=== PATIENT | female | born 1925 | race Caucasian/White ===

== ENCOUNTER 2016-07-02 16:55 | Inpatient (IN) | payer OTHER ==
[2016-07-02] MEDS ORDERED: morphine CARPU-JECT 2 MG/1 ML DISP.SYRIN IVPUSH ONE (17:47)
--- NOTE | 2016-07-02 17:58 | PDOC ---
History of Present Illness <Ozzy Koroma - Last Filed: 07/02/16 18:54> - General History Source: Patient Exam Limitations: No Limitations - History of Present Illness Initial Comments: 07/02/16 17:55 89y F hx of htn, presents with complaint of R knee pain. Pt was in her usual state of health, and was wearing stockings and slipped down 5 steps, falling wiht her arm in an externally rotated direction. Pt denies any head injury, neck pain, back pain, loc, hx of cp/sp/aplipations/abd pain. pt denies any numbness/tinglingweakness. pt endorsing pain to her R hip and R knee. pt not on any a/c <Tim Acevedo - Last Filed: 07/05/16 07:34> - General Chief Complaint: Pain, Acute Stated Complaint: FALL Time Seen by Provider: 07/02/16 17:46 Past History <Ozzy Koroma - Last Filed: 07/02/16 18:54> - Past Medical History GI Disorders: Yes (DIVERTICULOSIS; GERD) HTN: Yes - Surgical History Cholecystectomy: Yes Orthopedic Surgery: Yes (JOSE M HIP REPLACEMENT; RIGHT SHLD REPLACEMENT) - Psycho/Social/Smoking Cessation Hx Anxiety: No Suicidal Ideation: No Smoking Status: Yes Smoking History: Former smoker Have you smoked in the past 12 months: Yes Number of Cigarettes Smoked Daily: 3 Information on smoking cessation initiated: No 'Breaking Loose' booklet given: 04/04/13 Hx Alcohol Use: No Drug/Substance Use Hx: No <Tim Acevedo - Last Filed: 07/05/16 07:34> - Past Medical History Allergies/Adverse Reactions: Allergies Allergy/AdvReac Type Severity Reaction Status Date / Time Penicillins Allergy Rash Verified 07/02/16 17:08 Home Medications: Ambulatory Orders Hydralazine HCl 50 mg PO BID 05/25/13 Metoprolol Succinate [Toprol Xl -] 25 mg PO DAILY 07/02/16 Furosemide [Lasix -] 20 mg PO DAILY 07/04/16 Review of Systems - Review of Systems Able to Perform ROS?: Yes Comments:: 07/02/16 17:58 Constitutional - no reported Fever, Chills, HEENT: no reported vision changes, sore throat Respiratory: no reported cough, sob, hemoptysis Cardiac: no reported chest pain, palpitations, light headedness, leg swelling Abd/GI: no reported abd pain, nausea, vomiting, blood per rectum, melena, diarrhea : no reported dysuria, frequency, discharge Musculskelatal - +hip pain, knee pain no reported back pain, joint swelling skin - no reported bruising, erythema, rash neurological: no reported headache, numbness, focal weakness, tingling, ataxia, hematologic: no reported anemia, easy bruising, easy bleeding <Rojas Acevedoan - Last Filed: 07/05/16 07:34> *Physical Exam - Vital Signs Last Vital Signs Temp Pulse Resp BP Pulse Ox 97.8 F 63 20 145/80 99 07/02/16 17:09 07/02/16 17:09 07/02/16 17:09 07/02/16 17:09 07/02/16 17:09 <Ozzy Koroma - Last Filed: 07/02/16 18:54> - Vital Signs Last Vital Signs Temp Pulse Resp BP Pulse Ox 97.8 F 63 20 145/80 99 07/02/16 17:09 07/02/16 17:09 07/02/16 17:09 07/02/16 17:09 07/02/16 17:09 - Physical Exam Comments: 07/02/16 17:59 GENERAL: The patient is awake, alert, and fully oriented, Nontoxic - in no acute distress. HEAD: Normocephalic, atraumatic. EYES: extraocular movements intact, sclera anicteric, conjunctiva clear. ENT: Normal voice, Moist mucous membranes. NECK: Normal range of motion, supple LUNGS: Breath sounds equal, clear to auscultation bilaterally. No wheezes, no rhonchi, no rales. HEART: Regular rate and rhythm, normal S1 and S2 without murmur, rub or gallop. ABDOMEN: Soft, nontender, normoactive bowel sounds. No guarding, no rebound. No CVA tenderness EXTREMITIES: normal ROM of LLE, RLE exquisitely tender R knee with swelling, no tenderness to tib/fib/knee/ankle/foot. pulses symmetric b/l of DP, sensation intact distally, cap refill <2 sec symmetrically. NEUROLOGICAL: No facial assymetry, Normal speech, PSYCH: Normal mood, normal affect. SKIN: Warm, Dry, normal turgor, <Tim Acevedo - Last Filed: 07/05/16 07:34> Heart Score/ECG Review - ECG Impressions Comment:: 07/02/16 18:58 Twelve-lead EKG was performed and reviewed by me. There is normal sinus rhythm with a normal rate. Rate of 60 Left bundle-branch block Appropriate discordance <Tim Acevedo - Last Filed: 07/05/16 07:34> ED Treatment Course - LABORATORY CBC & Chemistry Diagram: 07/02/16 18:00 07/02/16 18:00 - ADDITIONAL ORDERS Additional order review: Laboratory Results 07/02/16 18:00 INR 0.99 07/02/16 18:00 RBC 4.83 MCV 70.4 L MCHC 31.1 L RDW 16.3 H D MPV 9.4 Neutrophils % 83.9 H Lymphocytes % 7.8 L D Monocytes % 6.0 Eosinophils % 1.7 Basophils % 0.6 - Medications Given in the ED: ED Medications Discontinued Medications Generic Name Dose Route Start Last Admin Trade Name Erasmoq PRN Reason Stop Dose Admin Morphine Sulfate 2 mg 07/02/16 17:47 07/02/16 18:00 Morphine Injection - IVPUSH 07/02/16 17:48 2 mg ONCE ONE Administration Ondansetron HCl 4 mg 07/02/16 18:05 07/02/16 18:00 Zofran Injection IVPB 07/02/16 18:06 4 mg ONCE ONE Administration <Ozzy Koroma - Last Filed: 07/02/16 18:54> - LABORATORY CBC & Chemistry Diagram: 07/04/16 05:50 07/04/16 05:50 - RADIOLOGY Radiology Studies Ordered: Category Date Time Status HIP & PELVIS-RIGHT [RAD] Stat Radiology 07/02/16 17:47 Ordered <Tim Acevedo - Last Filed: 07/05/16 07:34> Medical Decision Making - Medical Decision Making 07/02/16 18:[address] Casie lazo. Dr. Gonzalez is covering. Awaiting call back. 07/02/16 18:55 Dr. Gonzalez called into ED. Case discussed. <Ozzy Koroma - Last Filed: 07/02/16 18:54> - Medical Decision Making 07/02/16 18:00 distal femoral fracture n/v intact awaiting pelvic/hip xray will give morphine to pain paged dr. smith 07/02/16 18:43 discussed w/ jennifer requested CT of LE and putting on knee immobilizer 07/02/16 19:30 pts pain managed with small boluses of morphine, n/v intact on repeat examination case audrey gonzalez requests hospitalist admission will page dr. lakisha arteaga for med surg Case discussed in detail with admitting physician including history, physical exam and ancillary studies. Admitting physician has assumed care for the patient, will follow all pending diagnostics and will complete the evaluation and treatment. <Tim Acevedo - Last Filed: 07/05/16 07:34> *DC/Admit/Observation/Transfer <Ozzy Koroma - Last Filed: 07/02/16 18:54> - Discharge Dispostion Admit: Yes <Tim Acevedo - Last Filed: 07/05/16 07:34> Diagnosis at time of Disposition: Femur fracture, right Qualifiers: Encounter type: initial encounter Femur location: unspecified portion of femur Fracture type: closed Fracture morphology: other fracture Qualified Code(s): S72.8X1A - Other fracture of right femur, initial encounter for closed fracture
[2016-07-02] MEDS ORDERED: ONDANSETRON 4 MG/2 ML VIAL ONE ×2 (18:04→19:55)
[2016-07-02] MEDS ORDERED: morphine CARPU-JECT 2 MG/1 ML DISP.SYRIN ONE ×2 (18:04→22:20)
[2016-07-02] MEDS ORDERED: ONDANSETRON 4 MG/2 ML VIAL IVPB ONE ×2 (18:05→19:51)
[2016-07-02 18:18] LABS: BASOPHIL 0.6 % (0-2.0); EOSINOPHIL 1.7 % (0-4.5); MCH 21.9 pg (25.7-33.7); MCHC 31.1 g/dl (32.0-36.0); MEAN CELL VOLUME 70.4 fl (80-96); MEAN PLT VOLUME 9.4 fl (7.5-11.1); NEUTROPHILS 83.9 % (42.8-82.8); PLATELET COUNT 245 K/MM3 (134-434); RDW 16.3 % (11.6-15.6); WHITE BLOOD COUNT 14.5 K/mm3 (4.0-10.0)
[2016-07-02 18:33] LABS: INR 0.99 (0.82-1.09); PROTHROMBIN TIME (PATIENT) 10.9 SEC (9.98-11.88)
[2016-07-02 18:44] LABS: ALBUMIN 3.8 g/dl (3.4-5.0); BILIRUBIN,TOTAL 0.6 mg/dL (0.2-1.0); CALCIUM 8.5 mg/dL (8.5-10.1); COCKROFT - GAULT 21.1225; CREATININE 1.7 mg/dL (0.55-1.02); TOT PROT 6.6 g/dl (6.4-8.2)
[2016-07-02] MEDS ORDERED: SODIUM CHLORIDE 1,000 ML IV ONE (19:29)
[2016-07-02] MEDS ORDERED: morphine CARPU-JECT 4 MG/1 ML DISP.SYRIN IVPUSH ONE (19:51)
[2016-07-02] MEDS ORDERED: morphine CARPU-JECT 4 MG/1 ML DISP.SYRIN ONE (19:55)
--- NOTE | 2016-07-02 20:37 | PN ---
<Caitie Bahena - Last Filed: 07/21/16 20:05> Teaching Attending Note ATTENDING PHYSICIAN STATEMENT I saw and evaluated the patient. I reviewed the resident's note and discussed the case with the resident. I agree with the resident's findings and plan as documented. SUBJECTIVE: 89 yo F with a PMHx of HTN who presents with R knee pain s/p mechanical fall at home today. The patient states she fell down 5 stairs earlier this evening. Patient denies previous dizziness or lightheadedness before the fall. Patient states she injured her arm after falling however denies any head trauma, headache, neck pain, LOC, nausea or vomiting. Patient denies any numbness/ tingling or weakness in her LE. Currently in the ED, patient feels tired and requests a trevizo catheter. PMHx: Diverticulosis, GERD Social Hx: None PSHx: Cholecystectomy, Bilateral Hip replacement, R shoulder replacement. OBJECTIVE: Last Vital Signs Temp Pulse Resp BP Pulse Ox 97.8 F 63 20 145/80 99 07/02/16 17:09 07/02/16 17:09 07/02/16 17:09 07/02/16 17:09 07/02/16 17:09 GENERAL: Awake, alert, and fully oriented, in no acute distress. + Diminished R hearing. HEENT: Atraumatic. PERRLA, EOMI. Moist mucosa. No JVD LUNGS: No distress, speaks full sentences, clear to auscultation bilaterally HEART: Regular rate and rhythm, normal S1 and S2. + 3/6 Systolic murmur. no murmurs, rubs or gallops, peripheral pulses normal and equal bilaterally. ABDOMEN: Soft, nontender, normoactive bowel sounds. No guarding, no rebound. No masses EXTREMITIES: +RLE with external deviation, swollen and severe pain on movement. no edema. No clubbing or Cyanosis. NEUROLOGICAL: Cranial nerves II through XII grossly intact. Normal speech, normal gait, no focal sensorimotor deficits SKIN: Warm, Dry, normal turgor, no rashes or lesions noted. CBCD WBC 14.5 K/mm3 (4.0-10.0) H D 07/02/16 18:00 RBC 4.83 M/mm3 (3.60-5.2) 07/02/16 18:00 Hgb 10.6 GM/dL (10.7-15.3) L 07/02/16 18:00 Hct 34.0 % (32.4-45.2) 07/02/16 18:00 MCV 70.4 fl (80-96) L 07/02/16 18:00 MCHC 31.1 g/dl (32.0-36.0) L 07/02/16 18:00 RDW 16.3 % (11.6-15.6) H D 07/02/16 18:00 Plt Count 245 K/MM3 (134-434) 07/02/16 18:00 MPV 9.4 fl (7.5-11.1) 07/02/16 18:00 CMP Sodium 142 mmol/L (136-145) 07/02/16 18:00 Potassium 3.9 mmol/L (3.5-5.1) 07/02/16 18:00 Chloride 105 mmol/L (98-107) 07/02/16 18:00 Carbon Dioxide 25 mmol/L (21-32) 07/02/16 18:00 Anion Gap 12 (8-16) 07/02/16 18:00 BUN 43 mg/dL (7-18) H D 07/02/16 18:00 Creatinine 1.7 mg/dL (0.55-1.02) H 07/02/16 18:00 Creat Clearance w eGFR 28.36 (>60) 07/02/16 18:00 Calcium 8.5 mg/dL (8.5-10.1) 07/02/16 18:00 Total Bilirubin 0.6 mg/dL (0.2-1.0) 07/02/16 18:00 AST 22 U/L (15-37) D 07/02/16 18:00 ALT 20 U/L (12-78) D 07/02/16 18:00 Alkaline Phosphatase 88 U/L (45-117) 07/02/16 18:00 Total Protein 6.6 g/dl (6.4-8.2) 07/02/16 18:00 Albumin 3.8 g/dl (3.4-5.0) 07/02/16 18:00 Imaging: CXR Impression: Borderline cardiomegaly and mild bilateral increased interstitial lung markings without evidence of focal infiltrates Lower Extremity CT Report pending Hip/Pelvis Xray Impression: Status post right hip replacement in satisfactory alignment Knee Xray Impression: Distal femoral fracture along superior margin of the condyles with displacement. ASSESSMENT AND PLAN: Distal femoral fracture s/p Fall Bed rest Morphine 2 mg IVPB Q6 PRN Trevizo catheter due to immobilization Heparin 5000 SQ Q8 Ortho consult for surgery PT consult s/p surgery Cefazolin 1g pre-surgery Fall risk precautions Echocardiogram and Cardiology clearance by surgery Patients daughter in [place] is health care proxy. Advanced directives were discussed. Patient and family confirming their wishes. Documentation prepared by Caitie Bahena, acting as emergency medical services coordinator for Mary Ann Blum MD. <Mary Ann Blum - Last Filed: 07/29/16 19:52> Teaching Attending Note Name of Resident: Michele Martinez
--- NOTE | 2016-07-02 21:33 | HP ---
CHIEF COMPLAINT: PCP: Dr Urena Cardiology: Dr Goode HISTORY OF PRESENT ILLNESS: 89 year old female with pmh CKD (cr 1.5-1.9), HTN, CHF presented to the ED s/p mechanical fall. The patient was wearing silk stockings and slipped down 5 wooden steps. Her right knee bent and hit the floor. She is now complaining of moderate pain, sharp, that is alleviated by pain medications and worsened by movement of right knee, the pain radiates up the thigh . She denies hitting her head, neck, back or upper extremities. She only has pain in right knee. The patient denies any chest pain, palpitation, n/v, shortness of breath, dizziness , lightheadedness. No recent cold/flu like symptoms, diarrhea, fever, dysuria, hematuria, chills in the last few days. ER course was notable for: (1) Xray knee, Xray hip (2)CT right lower ext (3) Labs Recent Travel: None PAST MEDICAL HISTORY: CKD (cr 1.5-1.9), HTN, CHF PAST SURGICAL HISTORY: Hystecrectomy Cholecystectomy Right shoulder replacement Right rotator cuff B/l Hip replacement Social History: Smoking: former smoker, quit 3 years ago, 1/5 pack per day since 18 years old Alcohol:denies Drugs: denies Family History: father with triple bypass, aortic aneurism at 82, at 93. mother at 102 of unknown medical causes Allergies Penicillins Allergy (Verified 07/02/16 17:08) Unknown allergic reaction HOME MEDICATIONS: Home Medications Medication Instructions Recorded Hydralazine HCl 25 mg PO BID 05/25/13 Metoprolol Succinate [Toprol Xl -] 50 mg PO DAILY 07/02/16 REVIEW OF SYSTEMS CONSTITUTIONAL: Absent: fever, chills, diaphoresis, generalized weakness, malaise, loss of appetite, weight change HEENT: Absent: rhinorrhea, nasal congestion, throat pain, throat swelling, difficulty swallowing, mouth swelling, ear pain, eye pain, visual changes CARDIOVASCULAR: Absent: chest pain, syncope, palpitations, irregular heart rate, lightheadedness , peripheral edema RESPIRATORY: Absent: cough, shortness of breath, dyspnea with exertion, orthopnea, wheezing, stridor, hemoptysis GASTROINTESTINAL: Absent: abdominal pain, abdominal distension, nausea, vomiting, diarrhea, constipation, melena, hematochezia GENITOURINARY: Absent: dysuria, frequency, urgency, hesitancy, hematuria, flank pain, genital pain MUSCULOSKELETAL: right knee pain and swelling Absent: myalgia, arthralgia, , back pain, neck pain SKIN: Absent: rash, itching, pallor HEMATOLOGIC/IMMUNOLOGIC: Absent: easy bleeding, easy bruising, lymphadenopathy, frequent infections ENDOCRINE: Absent: unexplained weight gain, unexplained weight loss, heat intolerance, cold intolerance NEUROLOGIC: Absent: headache, focal weakness or paresthesias, dizziness, unsteady gait, seizure, mental status changes, bladder or bowel incontinence PSYCHIATRIC: Absent: anxiety, depression, suicidal or homicidal ideation, hallucinations. PHYSICAL EXAMINATION Vital Signs - 24 hr 07/02/16 17:09 Temperature 97.8 F Pulse Rate 63 Respiratory 20 Rate Blood Pressure 145/80 O2 Sat by Pulse 99 Oximetry (%) GENERAL: Awake, alert, and fully oriented, in no acute distress. HEAD: Normal with no signs of trauma. EYES: Pupils equal, round and reactive to light, extraocular movements intact, sclera anicteric, conjunctiva clear. No lid lag. EARS, NOSE, THROAT: Ears normal, nares patent, oropharynx clear without exudates. Moist mucous membranes. NECK: Normal range of motion, supple without lymphadenopathy, JVD, or masses. LUNGS: Breath sounds equal, clear to auscultation bilaterally. No wheezes, and no crackles. No accessory muscle use. HEART: Regular rate and rhythm, normal S1 and S2 with pansystolic murmur 3/6 and early diastolic murmur , rub or gallop. ABDOMEN: Soft, nontender, not distended, normoactive bowel sounds, no guarding, no rebound, no masses. No hepatomegaly or splenomegaly. MUSCULOSKELETAL: Normal range of motion at all joints. No bony deformities or tenderness. No CVA tenderness. UPPER EXTREMITIES: 2+ pulses, warm, well-perfused. No cyanosis. No clubbing. No peripheral edema. LOWER EXTREMITIES: 2+ pulses, warm, well-perfused. No calf tenderness. No peripheral edema. Right knee swelling and tenderness, no redness, decreased range of motion in right knee, likely due to pain NEUROLOGICAL: Cranial nerves II-XII intact. Normal speech. gait not observed. No numbness, tingling, loss of sensation to light touch in b/l lower ext, normal strength in ankle joints and hips joints b/l , unable to assess strength in right knee due to pain and limited range of motion. normal plantar reflex b/ l. PSYCHIATRIC: Cooperative. Good eye contact. Appropriate mood and affect. SKIN: Warm, dry, normal turgor, no rashes or lesions noted, normal capillary refill. Laboratory Results - last 24 hr 07/02/16 07/02/16 07/02/16 18:00 18:00 18:00 WBC 14.5 H D RBC 4.83 Hgb 10.6 L Hct 34.0 MCV 70.4 L MCHC 31.1 L RDW 16.3 H D Plt Count 245 MPV 9.4 Neutrophils % 83.9 H Lymphocytes % 7.8 L D Monocytes % 6.0 Eosinophils % 1.7 Basophils % 0.6 INR 0.99 Sodium 142 Potassium 3.9 Chloride 105 Carbon Dioxide 25 Anion Gap 12 BUN 43 H D Creatinine 1.7 H Creat Clearance w eGFR 28.36 Random Glucose 132 H D Calcium 8.5 Total Bilirubin 0.6 AST 22 D ALT 20 D Alkaline Phosphatase 88 Total Protein 6.6 Albumin 3.8 Blood Type Antibody Screen 07/02/16 18:00 WBC RBC Hgb Hct MCV MCHC RDW Plt Count MPV Neutrophils % Lymphocytes % Monocytes % Eosinophils % Basophils % INR Sodium Potassium Chloride Carbon Dioxide Anion Gap BUN Creatinine Creat Clearance w eGFR Random Glucose Calcium Total Bilirubin AST ALT Alkaline Phosphatase Total Protein Albumin Blood Type O POSITIVE Antibody Screen Negative CXR 07/02/16: Borderline cardiomegaly and mild bilateral increased interstitial lung markings without evidence of focal infiltrates X-ray of the pelvis and right hip 07/02/16: Status post right hip replacement in satisfactory alignment X-ray of the right knee 07/02/16: Distal femoral fracture along superior margin of the condyles with displacement. ASSESSMENT/PLAN: 89 year old female with pmh CKD (cr 1.5-1.9), HTN, CHF presented to the ED s/p mechanical fall was found to have Right Distal femoral fracture Right Distal femoral fracture s/p fall fall was mechanical Xray showed Distal femoral fracture along superior margin of the condyles with displacement NO bruise appreciated NO pain except for right knee Fall precaution initiated Bedrest Elizabeth catheter for immobilization Morphine 2mg IV q3h for pain Heparin 5000U sq q8h for DVT prophylaxis Dr smith consulted, possible surgery tomorrow type and screen done CBC, bmp and coag in am May need cardiac clearance due to H/o CHF, HTN, CKD and advanced age Consider echocardiography Consider nuclear stress test CKD baseline 1.5-1.9 Cr 1.7 Avoid nephrotoxins BMP in am HTN Resume Toprol XL 50mg Po daily Resume Hydralzine 25mg Po bid CHF On Diuretic qod, Possibly lasix 20mg, unsure of name and dosage Will clarify Toprol XL FEN Fluid: NS at 75ml/h starting after midnight Electrolytes: chemistry in am Nutrition: Low Na diet, NPO after midnight DVT prophylaxis: heparin SQ 5000U q8h Disposition: admit to [facility] Visit type - Emergency Visit Emergency Visit: Yes ED Registration Date: 07/02/16 Care time: The patient presented to the Emergency Department on the above date and was hospitalized for further evaluation of their emergent condition. - New Patient This patient is new to me today: Yes Date on this admission: 07/02/16 - Critical Care Critical Care patient: No
[2016-07-02 22:11] LABS: ANISOCYTOSIS 2+; HYPOCHROMIA 2+; MICROCYTOSIS 1+; PLATELET COMMENT2 NO CLOTTING DETECTED; PLATELET COMMENT3 FEW LARGE PLTS; PLATELET ESTIMATE ADEQUATE (NORMAL); POIKILOCYTOSIS 1+; POLYCHROMASIA 1+
[2016-07-02] MEDS ORDERED: hydrALAZINE HCL 25 MG TABLET (FP) ONE (22:20)
[2016-07-02] MEDS: morphine CARPU-JECT 2 MG/1 ML DISP.SYRIN IVPUSH PRN (22:27)
[2016-07-02] MEDS: hydrALAZINE HCL 25 MG TABLET (FP) PO SCH (22:27)
[2016-07-02] MEDS: SODIUM CHLORIDE 1,000 ML IV SCH (23:52)
[2016-07-03 00:28] VITALS: BMI 22.1
[2016-07-03] MEDS: morphine CARPU-JECT 2 MG/1 ML DISP.SYRIN IVPUSH PRN ×5 (03:11→17:20)
[2016-07-03 05:21] LABS: URINE APPEARANCE CLEAR; URINE BILIRUBIN NEGATIVE (NEGATIVE); URINE COLOR STRAW; URINE GLUCOSE (UA) NEGATIVE (NEGATIVE); URINE KETONE NEGATIVE (NEGATIVE); URINE LEUK ESTERASE NEGATIVE (NEGATIVE); URINE NITRITE NEGATIVE (NEGATIVE); URINE PROTEIN NEGATIVE (NEGATIVE); URINE UROBILINOGEN NEGATIVE E.U./dl (0.2-1.0)
[2016-07-03 05:24] LABS: URINE BLOOD 1+ (NEGATIVE)
[2016-07-03 05:25] LABS: URINE BACTERIA RARE /hpf (NONE SEEN); URINE HYALINE CAST 3 /lpf; URINE MUCUS RARE; URINE RBC 11 /hpf (0-3); URINE WBC <1 /hpf (3-5)
[2016-07-03 07:08] LABS: MCH 22.6 pg (25.7-33.7); MCHC 31.7 g/dl (32.0-36.0); MEAN CELL VOLUME 71.4 fl (80-96); MEAN PLT VOLUME 8.3 fl (7.5-11.1); PLATELET COUNT 166 K/MM3 (134-434); RDW 16.3 % (11.6-15.6); WHITE BLOOD COUNT 10.6 K/mm3 (4.0-10.0)
[2016-07-03 07:21] LABS: INR 1.1 (0.82-1.09); PROTHROMBIN TIME (PATIENT) 12.1 SEC (9.98-11.88)
[2016-07-03 07:23] LABS: ACTIVATED PTT 30.9 SECONDS (26.9-34.4)
[2016-07-03 07:34] LABS: CALCIUM 7.6 mg/dL (8.5-10.1); COCKROFT - GAULT 21.811; CREATININE 1.8 mg/dL (0.55-1.02)
[2016-07-03] MEDS: hydrALAZINE HCL 25 MG TABLET (FP) PO SCH ×2 (10:20→22:06)
[2016-07-03] MEDS: METOPROLOL SUCCINATE 50 MG TAB.SR.24H (FP) PO SCH (10:20)
[2016-07-03] MEDS: SODIUM CHLORIDE 1,000 ML IV SCH ×2 (10:23→17:22)
--- NOTE | 2016-07-03 11:52 | CON.ORTH ---
Consult Reason for Consultation:: right femur fx - Alcohol/Substance Use Hx Alcohol Use: No - Smoking History Smoking history: Former smoker Have you smoked in the past 12 months: No Aproximately how many cigarettes per day: 3 Home Medications - Allergies Allergies/Adverse Reactions: Allergies Allergy/AdvReac Type Severity Reaction Status Date / Time Penicillins Allergy Rash Verified 07/02/16 17:08 - Home Medications Home Medications: Ambulatory Orders Hydralazine HCl 25 mg PO BID 05/25/13 Metoprolol Succinate [Toprol Xl -] 50 mg PO DAILY 07/02/16 Physical Exam for Ortho Vital Signs: Vital Signs Temperature 98.7 F 07/03/16 10:00 Pulse Rate 85 07/03/16 10:00 Respiratory Rate 20 07/03/16 10:00 Blood Pressure 134/60 07/03/16 10:00 O2 Sat by Pulse Oximetry (%) 94 L 07/02/16 23:23 Labs: CBC, BMP 07/03/16 06:00 07/03/16 06:00 INR, PTT INR 1.10 (0.82-1.09) 07/03/16 06:00 - Lower Extremity Knee: Yes: Right, Assymetrical, Limited ROM, Pain, Swelling, Tenderness, Other ( nvi) Imaging - Results X-ray: Report Reviewed, Image Reviewed Cat Scan: Report Reviewed, Image Reviewed Assessment/Plan 89 year old female with pmh CKD (cr 1.5-1.9), HTN, CHF presented to the ED s/p mechanical fall. The patient was wearing silk stockings and slipped down 5 wooden steps. Her right knee bent and hit the floor. She is now complaining of moderate pain, sharp, that is alleviated by pain medications and worsened by movement of right knee, the pain radiates up the thigh . She denies hitting her head, neck, back or upper extremities. She only has pain in right knee. The patient denies any chest pain, palpitation, n/v, shortness of breath, dizziness , lightheadedness. a/p- right displaced distal femur, lateral tibial plateau fx Risks and benefits d/w pt in detail regarding surgical treatment OR tentatively Tuesday for right distal femur replacement vs ORIF Surgical clearance NPO after midnight Tuesday d/w Dr. Chacon
--- NOTE | 2016-07-03 16:58 | CON.NEP ---
Consult Consult Specialty:: Nephrology Referred by:: Dr Bray Reason for Consultation:: CKD - History of Present Illness Chief Complaint: Right leg pain following a fall History of Present Illness: 89 year old female with pmh CKD (cr 1.5-1.9) followed by Dr Efren Cano, HTN, CHF and cardiac murmur followed by Dr Cuello that presented to the ED s/p mechanical fall. The patient was wearing silk stockings and slipped down 5 wooden steps. Pt has a right distal femur fracture and is for surgery on 07/05 or 07/06 Since admission the serum Cr is at baseline based on the available previous labs. Pt usually on Lasix every other day at home No recent NSAID use Trevizo has be inserted and had to be reinserted on several occasions since not in place resulting in leakage around the trevizo UA showed some microscopic blood but no protein. Pt regularly followed by her usual computer science intern - History Source History Provided By: Patient, Medical Record - Past Medical History Cardio/Vascular: Yes: CHF, HTN, Other (Heart murmur ) - Alcohol/Substance Use Hx Alcohol Use: No - Smoking History Smoking history: Former smoker Have you smoked in the past 12 months: No Aproximately how many cigarettes per day: 3 Home Medications - Allergies Allergies/Adverse Reactions: Allergies Allergy/AdvReac Type Severity Reaction Status Date / Time Penicillins Allergy Rash Verified 07/02/16 17:08 - Home Medications Home Medications: Ambulatory Orders Hydralazine HCl 25 mg PO BID 05/25/13 Metoprolol Succinate [Toprol Xl -] 50 mg PO DAILY 07/02/16 Nephrology Consult - Height Height: 5 ft 7 in - Weight Weight: 141 lb - BMI Body Mass Index (BMI): 22.1 - Lab Results CBC,BMP: CBC, BMP 07/03/16 06:00 07/03/16 06:00 Laboratory Tests 04/20/10 04/23/10 04/24/10 15:10 06:00 07:30 Creatinine 1.6 H D 1.8 H 1.9 H 04/04/13 04/06/13 07/02/16 10:55 06:30 18:00 Creatinine 1.6 H 1.6 H 1.7 H U/A: Laboratory Tests 07/03/16 03:00 Urine Color Straw Urine pH 5.0 Ur Specific [place] < 1.005 L Urine Protein Negative Urine Glucose (UA) Negative Urine Ketones Negative Urine Blood 1+ H Urine Nitrite Negative Urine Bilirubin Negative Urine Urobilinogen Negative Ur Leukocyte Esterase Negative Urine RBC 11 Urine WBC <1 Anion Gap: Anion Gap Anion Gap 9 (8-16) 07/03/16 06:00 - Imaging Chest X-ray: Report Reviewed Cat Scan: Report Reviewed - Physical Examination Vital Signs: Vital Signs Temperature 98.7 F 07/03/16 14:10 Pulse Rate 83 07/03/16 14:10 Respiratory Rate 20 07/03/16 10:00 Blood Pressure 144/75 07/03/16 14:10 O2 Sat by Pulse Oximetry (%) 94 L 07/02/16 23:23 Constitutional: Yes: No Distress Cardiovascular: Yes: JVD, Murmur, S1, S2. No: S3 Respiratory: Yes: CTA Bilaterally Gastrointestinal: Yes: Soft. No: Tenderness Renal/: No: Bladder Distention Extremities: Yes: Other (Right knee swelling) Edema: No Assessment/Plan Impression CKD which appears to be stable in pt with mildly atrophic kidneys on sonography of 07/06 HTN H/O CHF usually on lasix q 48 hours Right Femur fx following a mechanical fall Harsh systolic murmur likley from Worsening microcytic anemia Microscopic Hematuria in pt with traumatic trevizo insertion Plan Cautious IVF- will reduce the rate to 40 cc/hr Continue to hold the lasix for now EKG Consider PRBCs preoperatvely if hgb confirmed low Cardiology to see pt Once trevizo is out will need another UA and if microscopic hematuria persists she will need a W/U Thank You Will Follow Discussed with the Hospitalist Dr Simpson
--- NOTE | 2016-07-03 17:30 | PN ---
Physical Exam: SUBJECTIVE: Patient seen and examined Patient is comfortable with no acute distress. Feeling better. OBJECTIVE: Vital Signs Temperature 98.7 F 07/03/16 14:10 Pulse Rate 83 07/03/16 14:10 Respiratory Rate 20 07/03/16 10:00 Blood Pressure 144/75 07/03/16 14:10 O2 Sat by Pulse Oximetry (%) 94 L 07/02/16 23:23 GENERAL: The patient is awake, alert, and fully oriented, in no acute distress. HEAD: Normal with no signs of trauma. EYES: PERRL, extraocular movements intact, sclera anicteric, conjunctiva clear. No ptosis. ENT: Ears normal, nares patent, oropharynx clear without exudates, moist mucous membranes. NECK: Trachea midline, full range of motion, supple. LUNGS: Breath sounds equal, clear to auscultation bilaterally, no wheezes, no crackles, no accessory muscle use. HEART: Regular rate and rhythm, S1, S2 without murmur, rub or gallop. ABDOMEN: Soft, nontender, nondistended, normoactive bowel sounds, no guarding, no rebound, no masses appreciated. EXTREMITIES: 2+ pulses, warm, well-perfused, no edema. Right femoral fx NEUROLOGICAL: Cranial nerves II through XII grossly intact. Normal speech, gait not observed. PSYCH: Normal mood, normal affect. SKIN: Warm, dry, normal turgor, no rashes or lesions noted CBCD WBC 10.6 K/mm3 (4.0-10.0) H 07/03/16 06:00 RBC 3.69 M/mm3 (3.60-5.2) D 07/03/16 06:00 Hgb 8.3 GM/dL (10.7-15.3) L D 07/03/16 06:00 Hct 26.3 % (32.4-45.2) L D 07/03/16 06:00 MCV 71.4 fl (80-96) L 07/03/16 06:00 MCHC 31.7 g/dl (32.0-36.0) L 07/03/16 06:00 RDW 16.3 % (11.6-15.6) H 07/03/16 06:00 Plt Count 166 K/MM3 (134-434) D 07/03/16 06:00 MPV 8.3 fl (7.5-11.1) D 07/03/16 06:00 CMP Sodium 142 mmol/L (136-145) 07/03/16 06:00 Potassium 4.1 mmol/L (3.5-5.1) 07/03/16 06:00 Chloride 108 mmol/L (98-107) H 07/03/16 06:00 Carbon Dioxide 25 mmol/L (21-32) 07/03/16 06:00 Anion Gap 9 (8-16) 07/03/16 06:00 BUN 38 mg/dL (7-18) H 07/03/16 06:00 Creatinine 1.8 mg/dL (0.55-1.02) H 07/03/16 06:00 Creat Clearance w eGFR 28.36 (>60) 07/02/16 18:00 Random Glucose 131 mg/dL (74-106) H 07/03/16 06:00 Calcium 7.6 mg/dL (8.5-10.1) L 07/03/16 06:00 Total Bilirubin 0.6 mg/dL (0.2-1.0) 07/02/16 18:00 AST 22 U/L (15-37) D 07/02/16 18:00 ALT 20 U/L (12-78) D 07/02/16 18:00 Alkaline Phosphatase 88 U/L (45-117) 07/02/16 18:00 Total Protein 6.6 g/dl (6.4-8.2) 07/02/16 18:00 Albumin 3.8 g/dl (3.4-5.0) 07/02/16 18:00 Generic Name Dose Route Start Last Admin Trade Name Erasmoq PRN Reason Stop Dose Admin Heparin Sodium (Porcine) 5,000 unit 07/02/16 22:00 Heparin - SQ TID ODETTE Hydralazine HCl 25 mg 07/02/16 22:00 07/03/16 10:20 Apresoline - PO 25 mg BID ODETTE Administration Sodium Chloride 1,000 mls @ 42 mls/hr 07/03/16 17:15 07/03/16 17:22 Normal Saline - IV 42 mls/hr ASDIR ODETTE Administration Metoprolol Succinate 50 mg 07/03/16 10:00 07/03/16 10:20 Toprol Xl - PO 50 mg DAILY ODETTE Administration Morphine Sulfate 2 mg 07/02/16 20:39 07/03/16 17:20 Morphine Injection - IVPUSH 2 mg Q3H PRN Administration PAIN Home Medications Medication Instructions Recorded Hydralazine HCl 25 mg PO BID 05/25/13 Metoprolol Succinate [Toprol Xl -] 50 mg PO DAILY 07/02/16 CXR 07/02/16: Borderline cardiomegaly and mild bilateral increased interstitial lung markings without evidence of focal infiltrates X-ray of the pelvis and right hip 07/02/16: Status post right hip replacement in satisfactory alignment X-ray of the right knee 07/02/16: Distal femoral fracture along superior margin of the condyles with displacement. ASSESSMENT/PLAN: 89 year old female with pmh CKD (cr 1.5-1.9), HTN, CHF presented to the ED s/p mechanical fall was found to have Right Distal femoral fracture # Acute Right Distal femoral fracture s/p mechanical fall ; Morphine for pain prn # CKD with baseline 1.5-1.9, nOw creatinine of Cr 1.8 # HTN Resume Toprol XL 50mg & Hydralzine 25mg Po bid # Hx of CHF on Diuretic qod, On lasix 20mg DVT prophylaxis: heparin SQ 5000U q8h Visit type - Emergency Visit Emergency Visit: Yes ED Registration Date: 07/02/16 Care time: The patient presented to the Emergency Department on the above date and was hospitalized for further evaluation of their emergent condition. - New Patient This patient is new to me today: Yes Date on this admission: 07/03/16 - Critical Care Critical Care patient: No
[2016-07-03] MEDS: HYDROmorphone HCL CARPU-JECT 1 MG/1 ML DISP.SYRIN IVPB PRN ×2 (18:30→23:37)
[2016-07-04] MEDS: HEPARIN NA (PORCINE) 5,000 UNITS/ML 1ML VIAL SQ SCH ×3 (06:04→21:44)
[2016-07-04 06:28] LABS: BASOPHIL 0.3 % (0-2.0); EOSINOPHIL 0.1 % (0-4.5); MCH 22.7 pg (25.7-33.7); MCHC 31.3 g/dl (32.0-36.0); MEAN CELL VOLUME 72.4 fl (80-96); MEAN PLT VOLUME 9.3 fl (7.5-11.1); NEUTROPHILS 83.6 % (42.8-82.8); PLATELET COUNT 164 K/MM3 (134-434); RDW 16.8 % (11.6-15.6); WHITE BLOOD COUNT 15.6 K/mm3 (4.0-10.0)
[2016-07-04 06:31] LABS: ALBUMIN 3.4 g/dl (3.4-5.0); BILIRUBIN,TOTAL 0.9 mg/dL (0.2-1.0); CALCIUM 7.4 mg/dL (8.5-10.1); COCKROFT - GAULT 17.8415; CREATININE 2.2 mg/dL (0.55-1.02); MAGNESIUM 2.3 mg/dL (1.8-2.4); PHOSPHOROUS 4.2 mg/dL (2.5-4.9); TOT PROT 6.2 g/dl (6.4-8.2)
[2016-07-04] MEDS: HYDROmorphone HCL CARPU-JECT 1 MG/1 ML DISP.SYRIN IVPB PRN ×2 (07:43→20:03)
[2016-07-04] MEDS: SODIUM CHLORIDE 1,000 ML IV SCH (09:38)
[2016-07-04] MEDS: METOPROLOL SUCCINATE 50 MG TAB.SR.24H (FP) PO SCH (09:39)
[2016-07-04] MEDS: hydrALAZINE HCL 25 MG TABLET (FP) PO SCH ×2 (09:39→21:44)
--- NOTE | 2016-07-04 12:23 | PN ---
Progress Note, Physician History of Present Illness: Renal f/u No leakage around the trevizo catheter today Eating poorly and has dry oral mucosa and lips Serum Cr 2.2 and Hgb lower - Current Medication List Current Medications: Active Medications Heparin Sodium (Porcine) (Heparin -) 5,000 unit SQ TID [facility] Last Admin: 07/04/16 06:04 Dose: 5,000 unit Hydralazine HCl (Apresoline -) 25 mg PO BID [facility] Last Admin: 07/04/16 09:39 Dose: 25 mg Hydromorphone HCl (Dilaudid Injection -) 0.5 mg IVPB Q4H PRN PRN Reason: PAIN Last Admin: 07/04/16 07:43 Dose: 0.5 mg Sodium Chloride (Normal Saline -) 1,000 mls @ 42 mls/hr IV ASDIR [facility] Last Admin: 07/04/16 09:38 Dose: 42 mls/hr Metoprolol Succinate (Toprol Xl -) 50 mg PO DAILY [facility] Last Admin: 07/04/16 09:39 Dose: 50 mg - Objective Vital Signs: Vital Signs Temperature 96.7 F L 07/03/16 21:24 Pulse Rate 67 07/04/16 10:00 Respiratory Rate 18 07/04/16 10:00 Blood Pressure 110/54 07/04/16 10:00 O2 Sat by Pulse Oximetry (%) 95 07/04/16 06:52 Constitutional: Yes: Calm Cardiovascular: Yes: Murmur, S1, S2 Respiratory: Yes: CTA Bilaterally Gastrointestinal: Yes: Soft. No: Tenderness, Rebound Genitourinary: No: Bladder Distention Edema: (Right knee swelling+pain) Labs: CBC, BMP 07/04/16 05:50 07/04/16 05:50 INR, PTT INR 1.10 (0.82-1.09) 07/03/16 06:00 Assessment/Plan Impression CKD with acute component which appears as a result of pt eating poorly ( atrophic kidneys on sonography of 07/06) HTN H/O CHF usually on lasix q 48 hours Right Femur fx following a mechanical fall Harsh systolic murmur likely from Worsening microcytic anemia Microscopic Hematuria in pt with traumatic trevizo insertion Plan Continue with IVF at 40 cc/hr- Reluctant to increase further given the H/O CHF and the harsh systolic murmur Hold lasix for now EKG Consider PRBCs transfusion Cardiology consult Once treivzo is out will need another UA and if microscopic hematuria persists she will need a W/U DVT ppx Pt encouraged to eat and drink Discussed with the Hospitalist Dr Simpson
--- NOTE | 2016-07-04 12:30 | PN ---
Progress Note (short form) - Note Progress Note: Patient is feeling better, with no acute distress. Family at bedside Temperature 96.7 F L 07/03/16 21:24 Pulse Rate 67 07/04/16 10:00 Respiratory Rate 18 07/04/16 10:00 Blood Pressure 110/54 07/04/16 10:00 O2 Sat by Pulse Oximetry (%) 95 07/04/16 06:52 GENERAL: The patient is awake, alert, and fully oriented, in no acute distress. HEAD: Normal with no signs of trauma. EYES: PERRL, extraocular movements intact, sclera anicteric, conjunctiva clear. No ptosis. ENT: Ears normal, nares patent, oropharynx clear without exudates, moist mucous membranes. NECK: Trachea midline, full range of motion, supple. LUNGS: Breath sounds equal, clear to auscultation bilaterally, no wheezes, no crackles, no accessory muscle use. HEART: Regular rate and rhythm, S1, S2 positive, SEM2/6 no rub or gallop. ABDOMEN: Soft, nontender, nondistended, normoactive bowel sounds, no guarding, no rebound, no masses. EXTREMITIES: 2+ pulses, warm, well-perfused, no edema, right femoral fx NEUROLOGICAL: Cranial nerves II through XII grossly intact. Normal speech, gait not observed. PSYCH: Normal mood, normal affect. SKIN: Warm, dry, normal turgor, no rashes or lesions noted CBCD WBC 15.6 K/mm3 (4.0-10.0) H D 07/04/16 05:50 RBC 3.46 M/mm3 (3.60-5.2) L 07/04/16 05:50 Hgb 7.8 GM/dL (10.7-15.3) L 07/04/16 05:50 Hct 25.0 % (32.4-45.2) L 07/04/16 05:50 MCV 72.4 fl (80-96) L 07/04/16 05:50 MCHC 31.3 g/dl (32.0-36.0) L 07/04/16 05:50 RDW 16.8 % (11.6-15.6) H 07/04/16 05:50 Plt Count 164 K/MM3 (134-434) 07/04/16 05:50 MPV 9.3 fl (7.5-11.1) D 07/04/16 05:50 CMP Sodium 142 mmol/L (136-145) 07/04/16 05:50 Potassium 4.4 mmol/L (3.5-5.1) 07/04/16 05:50 Chloride 104 mmol/L (98-107) 07/04/16 05:50 Carbon Dioxide 21 mmol/L (21-32) 07/04/16 05:50 Anion Gap 17 (8-16) H 07/04/16 05:50 BUN 40 mg/dL (7-18) H 07/04/16 05:50 Creatinine 2.2 mg/dL (0.55-1.02) H D 07/04/16 05:50 Creat Clearance w eGFR 21.06 (>60) 07/04/16 05:50 Random Glucose 137 mg/dL (74-106) H 07/04/16 05:50 Calcium 7.4 mg/dL (8.5-10.1) L 07/04/16 05:50 Total Bilirubin 0.9 mg/dL (0.2-1.0) D 07/04/16 05:50 AST 143 U/L (15-37) H D 07/04/16 05:50 ALT 112 U/L (12-78) H D 07/04/16 05:50 Alkaline Phosphatase 74 U/L (45-117) 07/04/16 05:50 Total Protein 6.2 g/dl (6.4-8.2) L 07/04/16 05:50 Albumin 3.4 g/dl (3.4-5.0) 07/04/16 05:50 Current Medications Generic Name Dose Route Start Last Admin Trade Name Freq PRN Reason Stop Dose Admin Heparin Sodium (Porcine) 5,000 unit 07/02/16 22:00 07/04/16 06:04 Heparin - SQ 5,000 unit TID ODETTE Administration Hydralazine HCl 25 mg 07/02/16 22:00 07/04/16 09:39 Apresoline - PO 25 mg BID ODETTE Administration Hydromorphone HCl 0.5 mg 07/03/16 17:44 07/04/16 07:43 Dilaudid Injection - IVPB 0.5 mg Q4H PRN Administration PAIN Sodium Chloride 1,000 mls @ 42 mls/hr 07/03/16 17:15 07/04/16 09:38 Normal Saline - IV 42 mls/hr ASDIR ODETTE Administration Metoprolol Succinate 50 mg 07/03/16 10:00 07/04/16 09:39 Toprol Xl - PO 50 mg DAILY ODETTE Administration Home Medications Medication Instructions Recorded Hydralazine HCl 25 mg PO BID 05/25/13 Metoprolol Succinate [Toprol Xl -] 50 mg PO DAILY 07/02/16 CXR 07/02/16: Borderline cardiomegaly and mild bilateral increased interstitial lung markings without evidence of focal infiltrates X-ray of the pelvis and right hip 07/02/16: Status post right hip replacement in satisfactory alignment X-ray of the right knee 07/02/16: Distal femoral fracture along superior margin of the condyles with displacement. ASSESSMENT/PLAN: 89 year old female with pmh CKD (cr 1.5-1.9), HTN, CHF presented to the ED s/p mechanical fall was found to have Right Distal femoral fracture # Acute Right Distal femoral fracture s/p mechanical fall ; Morphine for pain, going for sx in am. Cardiac clearance and renal on the case # Acute Anemia 7.8 now , will transfuse 2 units since going for sx in am, type and screen # aCUTE Dehydration on IVF Cr. 1.7-->2.2 will monitor # CKD with baseline 1.5-1.9, nOw creatinine of Cr 1.7-->2.2 today # HTN Resume Toprol XL 50mg & Hydralzine 25mg Po bid # Hx of CHF on Diuretic qod, On lasix 20mg, DVT prophylaxis: heparin SQ 5000U q8h Visit type - Emergency Visit Emergency Visit: Yes ED Registration Date: 07/02/16 Care time: The patient presented to the Emergency Department on the above date and was hospitalized for further evaluation of their emergent condition. - New Patient This patient is new to me today: No - Critical Care Critical Care patient: No
--- NOTE | 2016-07-04 13:17 | CON.CARD ---
Consult Consult Specialty:: Cardiology Referred by:: Hospitalist Medicine Reason for Consultation:: Pre-op CV evaluation - History of Present Illness Chief Complaint: Right knee pain History of Present Illness: 89 year old female with pmh CKD (cr 1.5-1.9), HTN, CHF presented to the ED s/p mechanical fall without near or true syncope, sustained right displaced distal femur, lateral tibial plateau fx and planned for right ORIF vs distal femur replacement. She denies chest pain, dyspnea, near or true syncope, orthopnea, PND, palpitations, or LE edema. PAST MEDICAL HISTORY: CKD (cr 1.5-1.9), HTN, CHF PAST SURGICAL HISTORY: Hystecrectomy Cholecystectomy Right shoulder replacement Right rotator cuff B/l Hip replacement Social History: Smoking: former smoker, quit 3 years ago, 1/5 pack per day since 18 years old Alcohol:denies Drugs: denies Family History: father with triple bypass, aortic aneurism at 82, at 93. mother at 102 of unknown medical causes Allergies Penicillins Allergy (Verified 07/02/16 17:08) Unknown allergic reaction - History Source History Provided By: Patient Limitations to Obtaining History: No Limitations - Past Medical History Cardio/Vascular: Yes: CHF, HTN, Other (Heart murmur ) - Alcohol/Substance Use Hx Alcohol Use: No - Smoking History Smoking history: Former smoker Have you smoked in the past 12 months: No Aproximately how many cigarettes per day: 3 Home Medications - Allergies Allergies/Adverse Reactions: Allergies Allergy/AdvReac Type Severity Reaction Status Date / Time Penicillins Allergy Rash Verified 07/02/16 17:08 - Home Medications Home Medications: Ambulatory Orders Hydralazine HCl 25 mg PO BID 05/25/13 Metoprolol Succinate [Toprol Xl -] 50 mg PO DAILY 07/02/16 Review of Systems - Review of Systems Musculoskeletal: reports: Decreased ROM, Joint Pain, Joint Swelling Vital Signs: Vital Signs Temperature 96.7 F L 07/03/16 21:24 Pulse Rate 67 07/04/16 10:00 Respiratory Rate 18 07/04/16 10:00 Blood Pressure 110/54 07/04/16 10:00 O2 Sat by Pulse Oximetry (%) 95 07/04/16 06:52 Constitutional: Yes: No Distress, Calm, Thin Neck: Yes: Supple Respiratory: Yes: Regular, CTA Bilaterally Gastrointestinal: Yes: Normal Bowel Sounds, Soft Cardiovascular: Yes: Regular Rate and Rhythm JVD: No Carotid Bruit: No Heart Sounds: Yes: S1, S2 Murmur: Yes: Systolic Murmur, Grade 2 Edema: No - Other Data Labs, Other Data: CBC, BMP 07/04/16 05:50 07/04/16 05:50 INR, PTT INR 1.10 (0.82-1.09) 07/03/16 06:00 NSR @ 66 LBBB Imaging - Results Chest X-ray: Report Reviewed (NAD) Problem List - Problems (1) Femur fracture, right Code(s): S72.91XA - UNSP FRACTURE OF RIGHT FEMUR, INIT FOR CLOS FX Qualifiers : Encounter type: initial encounter Femur location: unspecified portion of femur Fracture type: closed Fracture morphology: other fracture Qualified Code(s): S72.8X1A - Other fracture of right femur, initial encounter for closed fracture (2) Pre-operative cardiovascular examination Code(s): Z01.810 - ENCOUNTER FOR PREPROCEDURAL CARDIOVASCULAR EXAMINATION (3) Hypertensive cardiomegaly without heart failure Code(s): I11.9 - HYPERTENSIVE HEART DISEASE WITHOUT HEART FAILURE (4) Diastolic dysfunction without heart failure Code(s): I51.9 - HEART DISEASE, UNSPECIFIED (5) Senile calcific aortic valve sclerosis Code(s): I35.0 - NONRHEUMATIC AORTIC (VALVE) STENOSIS (6) Adtvc-ta-szvouwa kidney injury Code(s): N17.9 - ACUTE KIDNEY FAILURE, UNSPECIFIED N18.9 - CHRONIC KIDNEY DISEASE, UNSPECIFIED (7) Anemia Code(s): D64.9 - ANEMIA, UNSPECIFIED Qualifiers: Iron deficiency anemia type: chronic blood loss (8) Abnormal LFTs Code(s): R79.89 - OTHER SPECIFIED ABNORMAL FINDINGS OF BLOOD CHEMISTRY Assessment/Plan 1. Pre-operative cardiovascular evaluation 2. Post mechanical fall with right displaced distal femur, lateral tibial plateau fx plan for right distal femur replacement vs ORIF 3. Acute on CKD (pre-renal) 4. Diastolic dysfunction with murmur of aortic sclerosis 5. Microcytic anemia 6. Abnl LFTs P:1. Lasix on hold, judicious hydration initiated with monitor renal recovery and electrolytes 2. Continue Toprol XL 50 qd, increase hydralazine 50 bid (home dose confirmed with pharmacy) as hemodynamics tolerate 3. Will review outpatient records including most recent echocardiogram, trend LFTs 4. Given absence of sxs of acute coronary syndrome, decompensated CHF or malignant arrhythmia, there are no absolute CV contraindications against proceeding with orthopedic surgery, DVT prophylaxis 5. Thank you for consultative opportunity
--- NOTE | 2016-07-04 16:31 | PN ---
Progress Note (short form) - Note Progress Note: Ortho Pt seen and examined s/p right distal femur fx- receiving 1 unit of PRBCs Selected Entries 07/04/16 07/04/16 10:00 13:37 Temperature 98.2 F Pulse Rate 76 Respiratory 18 Rate Blood Pressure 108/51 Laboratory Tests 07/04/16 05:50 WBC 15.6 H D Hgb 7.8 L Hct 25.0 L Plt Count 164 + swelling, + ttp, decr rom ,nvi a/p Risks and benefits were d/w pt in detail OR for tomorrow afternoon NPO after midnight Surgical clearance d/w Dr. Renteria
[2016-07-05] MEDS: HEPARIN NA (PORCINE) 5,000 UNITS/ML 1ML VIAL SQ SCH ×2 (06:24→14:30)
[2016-07-05] MEDS: HYDROmorphone HCL CARPU-JECT 1 MG/1 ML DISP.SYRIN IVPB PRN ×2 (06:52→10:53)
[2016-07-05 07:50] LABS: BASOPHIL 0.3 % (0-2.0); EOSINOPHIL 0.2 % (0-4.5); MCHC 31.7 g/dl (32.0-36.0); MEAN CELL VOLUME 72.5 fl (80-96); NEUTROPHILS 81.7 % (42.8-82.8); PLATELET COUNT 149 K/MM3 (134-434); RDW 16.8 % (11.6-15.6)
[2016-07-05 08:17] LABS: CALCIUM 7.6 mg/dL (8.5-10.1)
[2016-07-05 08:19] LABS: COCKROFT - GAULT 21.811; CREATININE 1.8 mg/dL (0.55-1.02)
[2016-07-05 09:27] LABS: ALBUMIN 3.1 g/dl (3.4-5.0); BILIRUBIN,DIRECT 0.3 mg/dL (0.0-0.2); TOT PROT 5.7 g/dl (6.4-8.2)
--- NOTE | 2016-07-05 09:49 | PN ---
Progress Note (short form) - Note Progress Note: Ortho Pt for OR today for right distal femur replacement a/p OR NPO
--- NOTE | 2016-07-05 10:37 | EKG ---
Test Reason : Blood Pressure : / mmHG Vent. Rate : 066 BPM Atrial Rate : 066 BPM P-R Int : 152 ms QRS Dur : 140 ms QT Int : 488 ms P-R-T Axes : 033 -31 139 degrees QTc Int : 511 ms SINUS RHYTHM WITH PREMATURE ATRIAL COMPLEXES LEFT AXIS DEVIATION LEFT BUNDLE BRANCH BLOCK ABNORMAL ECG WHEN COMPARED WITH ECG OF 02-JUL-2016 18:28, PREMATURE ATRIAL COMPLEXES ARE NOW PRESENT Confirmed by TREVER STAPLES, DARY ([id number]) on 07/05/2016 10:37:03 AM Referred By: Sylvia PEARCE Confirmed By:DARY PERERA MD
[2016-07-05] MEDS: hydrALAZINE HCL 25 MG TABLET (FP) PO SCH ×2 (11:00→22:29)
[2016-07-05] MEDS: METOPROLOL SUCCINATE 50 MG TAB.SR.24H (FP) PO SCH (11:00)
--- NOTE | 2016-07-05 11:33 | PN ---
Progress Note, Physician History of Present Illness: 89 year old female with pmh CKD (cr 1.5-1.9), HTN, CHF presented to the ED s/p mechanical fall without near or true syncope, sustained right displaced distal femur, lateral tibial plateau fx and planned for right distal femur replacement. She denies chest pain, dyspnea, near or true syncope, orthopnea, PND, palpitations, or LE edema. - Current Medication List Current Medications: Active Medications Heparin Sodium (Porcine) (Heparin -) 5,000 unit SQ TID [facility] Last Admin: 07/05/16 06:24 Dose: Not Given Hydralazine HCl (Apresoline -) 25 mg PO BID [facility] Last Admin: 07/05/16 11:00 Dose: 25 mg Hydromorphone HCl (Dilaudid Injection -) 0.5 mg IVPB Q4H PRN PRN Reason: PAIN Last Admin: 07/05/16 10:53 Dose: 0.5 mg Sodium Chloride (Normal Saline -) 1,000 mls @ 42 mls/hr IV ASDIR [facility] Last Admin: 07/04/16 09:38 Dose: 42 mls/hr Metoprolol Succinate (Toprol Xl -) 50 mg PO DAILY [facility] Last Admin: 07/05/16 11:00 Dose: 50 mg - Objective Vital Signs: Vital Signs Temperature 99.8 F H 07/05/16 06:00 Pulse Rate 84 07/05/16 06:00 Respiratory Rate 20 07/05/16 06:00 Blood Pressure 147/74 07/05/16 06:00 O2 Sat by Pulse Oximetry (%) 95 07/04/16 21:00 Constitutional: Yes: No Distress, Calm Neck: Yes: Supple Cardiovascular: Yes: Regular Rate and Rhythm, Murmur (2/6 SM) Respiratory: Yes: Regular, Diminished Gastrointestinal: Yes: Normal Bowel Sounds, Soft Edema: No Labs: CBC, BMP 07/05/16 07:00 07/05/16 07:00 INR, PTT INR 1.10 (0.82-1.09) 07/03/16 06:00 Problem List - Problems (1) Femur fracture, right Code(s): S72.91XA - UNSP FRACTURE OF RIGHT FEMUR, INIT FOR CLOS FX Qualifiers : Encounter type: initial encounter Femur location: unspecified portion of femur Fracture type: closed Fracture morphology: other fracture Qualified Code(s): S72.8X1A - Other fracture of right femur, initial encounter for closed fracture (2) Pre-operative cardiovascular examination Code(s): Z01.810 - ENCOUNTER FOR PREPROCEDURAL CARDIOVASCULAR EXAMINATION (3) Hypertensive cardiomegaly without heart failure Code(s): I11.9 - HYPERTENSIVE HEART DISEASE WITHOUT HEART FAILURE (4) Diastolic dysfunction without heart failure Code(s): I51.9 - HEART DISEASE, UNSPECIFIED (5) Senile calcific aortic valve sclerosis Code(s): I35.0 - NONRHEUMATIC AORTIC (VALVE) STENOSIS (6) Brxkf-bz-jpgrshg kidney injury Code(s): N17.9 - ACUTE KIDNEY FAILURE, UNSPECIFIED N18.9 - CHRONIC KIDNEY DISEASE, UNSPECIFIED (7) Anemia Code(s): D64.9 - ANEMIA, UNSPECIFIED Qualifiers: Iron deficiency anemia type: chronic blood loss (8) Abnormal LFTs Code(s): R79.89 - OTHER SPECIFIED ABNORMAL FINDINGS OF BLOOD CHEMISTRY Assessment/Plan 1. Pre-operative cardiovascular evaluation 2. Post mechanical fall with right displaced distal femur, lateral tibial plateau fx plan for right distal femur replacement 3. Acute on CKD (pre-renal) 4. Diastolic dysfunction with murmur of aortic sclerosis 5. Microcytic anemia 6. Abnl LFTs improving P:1. Lasix on hold, judicious hydration initiated with monitor renal recovery and electrolytes 2. Continue Toprol XL 50 qd, increase hydralazine 50 bid (home dose confirmed with pharmacy) as hemodynamics tolerate 3. Will review outpatient records including most recent echocardiogram 4. Given absence of sxs of acute coronary syndrome, decompensated CHF or malignant arrhythmia, there are no absolute CV contraindications against proceeding with orthopedic surgery, DVT prophylaxis
--- NOTE | 2016-07-05 12:53 | PN ---
Progress Note, Physician History of Present Illness: Pt seen and examined at bedside. She is agitated. She denies shortness of breath. She has poor appetite. - Current Medication List Current Medications: Active Medications Heparin Sodium (Porcine) (Heparin -) 5,000 unit SQ TID [facility] Last Admin: 07/05/16 06:24 Dose: Not Given Hydralazine HCl (Apresoline -) 25 mg PO BID [facility] Last Admin: 07/05/16 11:00 Dose: 25 mg Hydromorphone HCl (Dilaudid Injection -) 0.5 mg IVPB Q4H PRN PRN Reason: PAIN Last Admin: 07/05/16 10:53 Dose: 0.5 mg Sodium Chloride (Normal Saline -) 1,000 mls @ 42 mls/hr IV ASDIR [facility] Last Admin: 07/04/16 09:38 Dose: 42 mls/hr Metoprolol Succinate (Toprol Xl -) 50 mg PO DAILY [facility] Last Admin: 07/05/16 11:00 Dose: 50 mg - Objective Vital Signs: Vital Signs Temperature 99.8 F H 07/05/16 06:00 Pulse Rate 84 07/05/16 06:00 Respiratory Rate 20 07/05/16 06:00 Blood Pressure 147/74 07/05/16 06:00 O2 Sat by Pulse Oximetry (%) 95 07/04/16 21:00 Constitutional: Yes: Calm HENT: Yes: WNL Neck: Yes: Supple Cardiovascular: Yes: S1, S2 Respiratory: Yes: CTA Bilaterally Gastrointestinal: Yes: Soft Genitourinary: Yes: WNL Musculoskeletal: Yes: Other (right leg pain) Edema: Yes Edema: LLE: Trace, RLE: Trace Neurological: Yes: Oriented Psychiatric: Yes: Oriented Labs: CBC, BMP 07/05/16 07:00 07/05/16 07:00 INR, PTT INR 1.10 (0.82-1.09) 07/03/16 06:00 Problem List - Problems (1) [id number] kidney injury Code(s): N17.9 - ACUTE KIDNEY FAILURE, UNSPECIFIED N18.9 - CHRONIC KIDNEY DISEASE, UNSPECIFIED (2) Diastolic dysfunction without heart failure Code(s): I51.9 - HEART DISEASE, UNSPECIFIED (3) Femur fracture, right Code(s): S72.91XA - UNSP FRACTURE OF RIGHT FEMUR, INIT FOR CLOS FX Qualifiers : Encounter type: initial encounter Femur location: unspecified portion of femur Fracture type: closed Fracture morphology: other fracture Qualified Code(s): S72.8X1A - Other fracture of right femur, initial encounter for closed fracture Assessment/Plan Current Medications Generic Name Dose Route Start Last Admin Trade Name Freq PRN Reason Stop Dose Admin Heparin Sodium (Porcine) 5,000 unit 07/02/16 22:00 07/05/16 06:24 Heparin - SQ Not Given TID ODETTE Hydralazine HCl 25 mg 07/02/16 22:00 07/05/16 11:00 Apresoline - PO 25 mg BID ODETTE Administration Hydromorphone HCl 0.5 mg 07/03/16 17:44 07/05/16 10:53 Dilaudid Injection - IVPB 0.5 mg Q4H PRN Administration PAIN Sodium Chloride 1,000 mls @ 42 mls/hr 07/03/16 17:15 07/04/16 09:38 Normal Saline - IV 42 mls/hr ASDIR ODETTE Administration Metoprolol Succinate 50 mg 07/03/16 10:00 07/05/16 11:00 Toprol Xl - PO 50 mg DAILY ODETTE Administration Impression 1. CKD with acute component 2. HTN 3. H/O CHF - pt not in active failure 4. Right Femur fx following a mechanical fall 5. aortic stenosis 5. anemia 6. Microscopic Hematuria Plan - cont with fluids - pt going to OR today for femur fracture - hold lasix for now - renal function is improving - encourage PO intake post op - monitor hg - will need repeat ua to follow up microscopic hematuria - will follow Dr Bush
--- NOTE | 2016-07-05 12:54 | EKG ---
Test Reason : Blood Pressure : / mmHG Vent. Rate : 060 BPM Atrial Rate : 060 BPM P-R Int : 128 ms QRS Dur : 136 ms QT Int : 490 ms P-R-T Axes : 041 -20 128 degrees QTc Int : 490 ms NORMAL SINUS RHYTHM LEFT BUNDLE BRANCH BLOCK ABNORMAL ECG WHEN COMPARED WITH ECG OF 04-APR-2013 11:21, T WAVE VARIATION Confirmed by DARY PERERA MD ([id number]) on 07/05/2016 12:53:31 PM Referred By: Confirmed By:DARY PERERA MD
[2016-07-05] MEDS ORDERED: ROPIVACAINE HCL 0.5% 30ML VIAL ONE (13:37)
[2016-07-05] MEDS ORDERED: MIDAZOLAM HCL 2 MG/2 ML SINGLE DOSE VIAL ONE ×3 (13:38→16:57)
--- NOTE | 2016-07-05 14:04 | PN ---
Physical Exam: SUBJECTIVE: Patient undergoing surgery now. OBJECTIVE: Vital Signs Period Temp Pulse Resp BP Sys/Ramírez Pulse Ox Last 24 Hr 99.3 F-99.8 F 77-84 18-20 121-160/74-82 95-95 Physical Exam: Not done as patient is undergoing surgery. Laboratory Results - last 24 hr 07/05/16 07/05/16 07/05/16 07:00 07:00 07:00 WBC 12.0 H RBC 3.59 L Hgb 8.3 L Hct 26.0 L MCV 72.5 L MCHC 31.7 L RDW 16.8 H Plt Count 149 MPV 9.0 Neutrophils % 81.7 Lymphocytes % 8.0 Monocytes % 9.8 Eosinophils % 0.2 D Basophils % 0.3 Sodium 139 Potassium 4.2 Chloride 108 H Carbon Dioxide 22 Anion Gap 9 BUN 38 H Creatinine 1.8 H Random Glucose 112 H Calcium 7.6 L Total Bilirubin 1.0 Cancelled Direct Bilirubin 0.3 H Cancelled AST 93 H D Cancelled ALT 110 H Cancelled Alkaline Phosphatase 73 Cancelled Total Protein 5.7 L Cancelled Albumin 3.1 L Cancelled Active Medications Generic Name Dose Route Start Last Admin Trade Name Freq PRN Reason Stop Dose Admin Heparin Sodium (Porcine) 5,000 unit 07/02/16 22:00 07/05/16 06:24 Heparin - SQ Not Given TID ODETTE Hydralazine HCl 25 mg 07/02/16 22:00 07/05/16 11:00 Apresoline - PO 25 mg BID ODETTE Administration Hydromorphone HCl 0.5 mg 07/03/16 17:44 07/05/16 10:53 Dilaudid Injection - IVPB 0.5 mg Q4H PRN Administration PAIN Sodium Chloride 1,000 mls @ 42 mls/hr 07/03/16 17:15 07/04/16 09:38 Normal Saline - IV 42 mls/hr ASDIR ODETTE Administration Metoprolol Succinate 50 mg 07/03/16 10:00 07/05/16 11:00 Toprol Xl - PO 50 mg DAILY ODTETE Administration CXR 07/02/16: Borderline cardiomegaly and mild bilateral increased interstitial lung markings without evidence of focal infiltrates X-ray of the pelvis and right hip 07/02/16: Status post right hip replacement in satisfactory alignment X-ray of the right knee 07/02/16: Distal femoral fracture along superior margin of the condyles with displacement. ASSESSMENT/PLAN: Patient is a 89 year old female with past medical history of CKD (cr 1.5-1.9), HTN, CHF presented to the ED s/p mechanical fall was found to have Right Distal femoral fracture # Right Distal femoral fracture s/p fall s/p surgery undergoing now. Patient had a mechanical fall Xray showed : Distal femoral fracture along superior margin of the condyles with displacement Admitted in Med-Surg IV Morphine 2mg Q3H for pain Elizabeth catheter in place Bed rest Fall precautions. DVT prophylaxis Dr. Renteria Consult appreciated. # Hypertension-stable Now NPO but Resume Toprol XL 50mg Po Daily after surgery Resume Hydralazine 25mg PO BID # CKD baseline 1.5-1.9 Trend Cr 1.8 Avoid nephrotoxins # CHF- not on exacerbation Lasix 20mg is on home medication list but just confirmed with the pharmacy ( [facility]), she takes only hydralazine. Once patient comes out from surgery will confirm. ECHO Done on 07/05/16: Left ventricular systolic function is mild-moderately reduced. Moderate mitral annular calcification. Left atrium is mildly dilated. Trace to mild mR. Moderate TR. # FEN IV NS at 42 mls/hr Electrolytes to be repeated tomorrow NPO, now undergoing surgery # Prophylaxis For DVT: Heparin SQ 5000U TID For GI: Not indicated Disposition: Admit to Med-surg. Duration of stay unknown. Case discussed with Dr. Bray. Visit type - Emergency Visit Emergency Visit: Yes ED Registration Date: 07/02/16 Care time: The patient presented to the Emergency Department on the above date and was hospitalized for further evaluation of their emergent condition. - New Patient This patient is new to me today: No - Critical Care Critical Care patient: No - Discharge Referral Referred to [facility] Med P.C[facility] No
[2016-07-05] MEDS ORDERED: PROPOFOL 20 ML ONE (14:51)
[2016-07-05] MEDS ORDERED: ceFAZolin SODIUM 1 GM VIAL ONE (15:00)
[2016-07-05] MEDS ORDERED: TRANEXAMIC ACID 1000 MG/10 ML VIAL ONE ×2 (15:00→16:19)
[2016-07-05] MEDS ORDERED: ceFAZolin SODIUM 1 GM VIAL IVPB ONE (15:04)
--- NOTE | 2016-07-05 16:57 | OP ---
Operative Note - Note: Operative Date: 07/05/16 ([facility]) Pre-Operative Diagnosis: right distal femur fx- displaced Operation: right distal femur replacement Post-Operative Diagnosis: Same as Pre-op Surgeon: Chaevz Renteria Stripper Color: Simon Rudolph Anesthesiologist/CIVIL DESIGNER: Leatha Carpenter Anesthesia: General, Local Specimens Removed: bone fragments Estimated Blood Loss (mls): 300 Operative Report Dictated: Yes
[2016-07-05] MEDS ORDERED: ONDANSETRON 4 MG/2 ML VIAL ONE (18:10)
[2016-07-05] MEDS: SODIUM CHLORIDE 1,000 ML IV SCH (19:55)
--- NOTE | 2016-07-05 20:01 | PN ---
Teaching Attending Note Name of Resident: Cynthia Hardin ATTENDING PHYSICIAN STATEMENT I saw and evaluated the patient. I reviewed the resident's note and discussed the case with the resident. I agree with the resident's findings and plan as documented. SUBJECTIVE: Patient is comfortable with no acute distress. s/p fall. denies any pain at this time, no fever or chills OBJECTIVE: Vital Signs Temperature 98.7 F 07/05/16 17:05 Pulse Rate 82 07/05/16 19:00 Respiratory Rate 20 07/05/16 19:00 Blood Pressure 148/60 07/05/16 19:00 O2 Sat by Pulse Oximetry (%) 96 07/05/16 19:00 CBCD WBC 12.0 K/mm3 (4.0-10.0) H 07/05/16 07:00 RBC 3.59 M/mm3 (3.60-5.2) L 07/05/16 07:00 Hgb 8.3 GM/dL (10.7-15.3) L 07/05/16 07:00 Hct 26.0 % (32.4-45.2) L 07/05/16 07:00 MCV 72.5 fl (80-96) L 07/05/16 07:00 MCHC 31.7 g/dl (32.0-36.0) L 07/05/16 07:00 RDW 16.8 % (11.6-15.6) H 07/05/16 07:00 Plt Count 149 K/MM3 (134-434) 07/05/16 07:00 MPV 9.0 fl (7.5-11.1) 07/05/16 07:00 CMP Sodium 139 mmol/L (136-145) 07/05/16 07:00 Potassium 4.2 mmol/L (3.5-5.1) 07/05/16 07:00 Chloride 108 mmol/L (98-107) H 07/05/16 07:00 Carbon Dioxide 22 mmol/L (21-32) 07/05/16 07:00 Anion Gap 9 (8-16) 07/05/16 07:00 BUN 38 mg/dL (7-18) H 07/05/16 07:00 Creatinine 1.8 mg/dL (0.55-1.02) H 07/05/16 07:00 Creat Clearance w eGFR 21.06 (>60) 07/04/16 05:50 Random Glucose 112 mg/dL (74-106) H 07/05/16 07:00 Calcium 7.6 mg/dL (8.5-10.1) L 07/05/16 07:00 Total Bilirubin 1.0 mg/dL (0.2-1.0) 07/05/16 07:00 AST 93 U/L (15-37) H D 07/05/16 07:00 ALT 110 U/L (12-78) H 07/05/16 07:00 Alkaline Phosphatase 73 U/L (45-117) 07/05/16 07:00 Total Protein 5.7 g/dl (6.4-8.2) L 07/05/16 07:00 Albumin 3.1 g/dl (3.4-5.0) L 07/05/16 07:00 Current Medications Generic Name Dose Route Start Last Admin Trade Name Freq PRN Reason Stop Dose Admin Aspirin 325 mg 07/06/16 08:00 Asa - PO DAILY@0800 ODETTE Hydralazine HCl 25 mg 07/05/16 22:00 Apresoline - PO BID ODETTE Hydromorphone HCl 0.5 mg 07/05/16 18:01 Dilaudid Injection - IVPB Q4H PRN PAIN Cefazolin Sodium/Dextrose 50 mls @ 100 mls/hr 07/05/16 23:00 Ancef 2 Gm Premixed Ivpb - IVPB 07/06/16 07:29 Q8H ODETTE Sodium Chloride 1,000 mls @ 42 mls/hr 07/05/16 18:01 07/05/16 19:55 Normal Saline - IV 42 mls/hr ASDIR ODETTE Administration Metoprolol Succinate 50 mg 07/06/16 10:00 Toprol Xl - PO DAILY OEDTTE Home Medications Medication Instructions Recorded Hydralazine HCl 50 mg PO BID 05/25/13 Metoprolol Succinate [Toprol Xl -] 25 mg PO DAILY 07/02/16 Furosemide [Lasix -] 20 mg PO DAILY 07/04/16 CXR 07/02/16: Borderline cardiomegaly and mild bilateral increased interstitial lung markings without evidence of focal infiltrates X-ray of the pelvis and right hip 07/02/16: Status post right hip replacement in satisfactory alignment X-ray of the right knee 07/02/16: Distal femoral fracture along superior margin of the condyles with displacement. ASSESSMENT/PLAN: 89 year old female with pmh CKD (cr 1.5-1.9), HTN, CHF presented to the ED s/p mechanical fall was found to have Right Distal femoral fracture # Acute Right Distal femoral fracture s/p mechanical fall ; Morphine for pain, going for sx in am. Cardiac clearance and renal on the case # Acute Anemia 7.8 now , will transfuse 2 units if needed since going for sx in am, type and screen # aCUTE Dehydration on IVF Cr. 1.7-->2.2 will monitor # CKD with baseline 1.5-1.9, nOw creatinine of Cr 1.7-->2.2 today # HTN Resume Toprol XL 50mg & Hydralzine 25mg Po bid # Hx of CHF on Diuretic qod, On lasix 20mg, DVT prophylaxis: heparin SQ 5000U q8h
--- NOTE | 2016-07-05 20:12 | OP ---
DATE OF OPERATION: 07/05/2016 PREOPERATIVE DIAGNOSIS: Comminuted and displaced intraarticular distal femur fracture. POSTOPERATIVE DIAGNOSIS: Comminuted and displaced intraarticular distal femur fracture. PROCEDURE: Right total knee/distal femur replacement. SURGICAL ATTENDING: Chavez Renteria MD FIRE MANAGEMENT OFFICER: RAUL Chan ANESTHESIA: Femoral and general. CLOSURE: A GMRS component with a medium body, an M2 tibia, an 80 mm x 14 diameter tibial sonia, a 107 x 10-mm femoral sonia, a 13 polyethylene, a 32 patella, number 1 Vicryl for fascia, 0 and 2-0 subcutaneous, 3-0 Monocryl subcuticular for skin with skin glue. ESTIMATED BLOOD LOSS: Negligible. TOURNIQUET TIME: Approximately 70 minutes. No complications. DESCRIPTION OF OPERATIVE PROCEDURE: Patient was taken to the operating room on July 05, 2016. Femoral block followed by general anesthesia was administered by the anesthesiologist. IV Kefzol was administered prophylactically prior to the case. A well-padded pneumatic tourniquet was placed on the proximal thigh. The right lower extremity was prepped and draped in the usual sterile fashion. A 12-cm longitudinal midline incision was centered and incised over the patella. Hemostasis achieved with Bovie cautery. Sharp dissection carried down to the level of the extensor mechanism with sufficient flaps medial and lateral to perform the procedure. A medial parapatellar arthrotomy was then performed and the patella was inverted, the knee was flexed up. The fracture was found to have a T component and was displaced with marked comminution of the distal femur. Subperiosteal dissection was done both medial and laterally until the distal femur was able to be delivered in pieces out of the wound. Subperiosteal and periosteal dissection was done on the distal femur, and then the distal femur was osteotomized at the appropriate level, measuring from the articular surface up to the smallest distal femoral component while removing all the fracture fragments. Some residual bony fragments were still attached to soft tissue posteriorly which were left in situ. The proximal femur was then osteotomized using an external alignment jig. The lateral plateau was found to be very sufficient and we did 2 mm off that plateau. The bone and meniscal remnants were debrided. An M2 tibial plateau was utilized. Its keel was then made and then the intramedullary canal of the tibia was reamed up to a 16 reamer. It was decided to use a 14 stem. The intramedullary canal of the femur was reamed. It was wide open; however, patient already had a previous hemiarthroplasty. We could not go further than using the smaller stem. We used the smaller stem with the widest diameter, which was 10 mm. A trial reduction with a medium femoral component and the stem and the M2 tibial component and its stem revealed good tensioning of the soft tissues and had good range of motion with no undue tension. The patella was osteotomized at the appropriate level. A 32 lollipop was used to drill the lugholes and the 32 patella was applied. The knee was taken through a range of motion, found to have good stability, good tracking of the patella. Trial components were removed. The knee was pulse antibiotic irrigated. A distal tibial cement plug was applied. Three bags of antibiotic cement were mixed using modern generation technique. Both canals were retrograde filled and the real components were then applied with the appropriate orientation and rotation, slight rotation on the femur to aid in patellar tracking and the tibia as well. as well. The components were pressurized in extension. All excess cement was removed. The patella was then cemented in and clamped to pressurize the cement there as well. All excess cement was removed. The trial polyethylene plastics were removed and the real polyethylenes were clipped into place and then the hinge was applied. Again, the range of motion was excellent, good tracking of the patella, and good tension of the soft tissue with good length. The knee was pulse antibiotic irrigated. Vancomycin powder was applied distally. The medial parapatellar arthrotomy was then closed using number 1 Vicryl interrupted suture, 0 and 2-0 for subcutaneous, and 3-0 Monocryl subcuticular with skin glue for the skin. Sterile pressure dressing was applied. Tourniquet was deflated. Total tourniquet time was approximately 70 minutes. No complications. Total blood loss was minimal due to the use of tourniquet. Anant [id number]
[2016-07-05] MEDS: CEFAZOLIN 2 GM/D5W 50 ML IVPB SCH (22:29)
[2016-07-05] MEDS ORDERED: CEFAZOLIN 2 GM/D5W 50 ML IVPB SCH (23:00)
[2016-07-06 04:48] LABS: URINE APPEARANCE CLOUDY; URINE BILIRUBIN NEGATIVE (NEGATIVE); URINE COLOR YELLOW; URINE GLUCOSE (UA) NEGATIVE (NEGATIVE); URINE KETONE NEGATIVE (NEGATIVE); URINE NITRITE NEGATIVE (NEGATIVE); URINE UROBILINOGEN NEGATIVE E.U./dl (0.2-1.0)
[2016-07-06 05:09] LABS: URINE BLOOD 2+ (NEGATIVE); URINE LEUK ESTERASE 3+ (NEGATIVE); URINE PROTEIN 2+ (NEGATIVE)
[2016-07-06 05:12] LABS: URINE MUCUS RARE; URINE RBC 42 /hpf (0-3); URINE WBC 765 /hpf (3-5)
[2016-07-06] MEDS: CEFAZOLIN 2 GM/D5W 50 ML IVPB SCH (06:20)
[2016-07-06] MEDS ORDERED: ASPIRIN 325 MG TABLET PO SCH (08:00)
[2016-07-06 08:04] LABS: MCH 23.3 pg (25.7-33.7); MCHC 31.9 g/dl (32.0-36.0); MEAN CELL VOLUME 72.8 fl (80-96); MEAN PLT VOLUME 9.4 fl (7.5-11.1); PLATELET COUNT 153 K/MM3 (134-434); RDW 16.7 % (11.6-15.6)
[2016-07-06] MEDS: HYDROmorphone HCL CARPU-JECT 1 MG/1 ML DISP.SYRIN IVPB PRN ×2 (08:09→12:05)
--- NOTE | 2016-07-06 08:25 | PN ---
Physical Exam: SUBJECTIVE: Patient seen and examined at bed side this morning. No complaints except for mild pain over the surgical site controlled with IV Dilaudid. Denies chest pain, sob, cough, palpitation, abdominal pain, nausea or vomiting. Bowel movement yesterday, didn't contain any blood. No active bleeding from any sites. OBJECTIVE: Vital Signs Period Temp Pulse Resp BP Sys/Ramírez Pulse Ox Last 24 Hr 98.5 F-100.0 F 78-88 15-24 127-160/52-91 93-97 GENERAL: Elderly female, awake, alert, and fully oriented, in no acute distress. HEAD: Normal with no signs of trauma. EYES: EOM intact, no pallor or icterus. ENT: Ears normal. moist mucous membranes. NECK: Supple. LUNGS: Breath sounds equal, clear to auscultation bilaterally, no wheezes, no crackles, no accessory muscle use. HEART: Regular rate and rhythm, S1, S2 with systolic murmur, grade 2/6, left second intercoastal space. ABDOMEN: Soft, nontender, nondistended, normoactive bowel sounds, no guarding, no rebound, no hepatosplenomegaly, no masses. UPPER EXTREMITIES: 2+ pulses, warm, well-perfused, no edema. Right LOWER EXTREMITy: Bandage applied, didn't open it. Can wiggle toes, peripheral pulses intact. Left Lower extremity: 2+ pulses, warm, well-perfused, no edema. NEUROLOGICAL: Cranial nerves II through XII grossly intact. Normal speech, gait not observed. PSYCH: Normal mood, normal affect. SKIN: Warm, dry, normal turgor, no rashes or lesions noted. Laboratory Results - last 24 hr 07/05/16 07/05/16 07/06/16 07:00 07:00 04:30 WBC RBC Hgb Hct MCV MCHC RDW Plt Count MPV Sodium 139 Potassium 4.2 Chloride 108 H Carbon Dioxide 22 Anion Gap 9 BUN 38 H Creatinine 1.8 H Random Glucose 112 H Calcium 7.6 L Total Bilirubin 1.0 Cancelled Direct Bilirubin 0.3 H Cancelled AST 93 H D Cancelled ALT 110 H Cancelled Alkaline Phosphatase 73 Cancelled Total Protein 5.7 L Cancelled Albumin 3.1 L Cancelled Urine Color Yellow Urine Appearance Cloudy Urine pH 5.0 Urine Protein 2+ H Urine Glucose (UA) Negative Urine Ketones Negative Urine Blood 2+ H Urine Nitrite Negative Urine Bilirubin Negative Urine Urobilinogen Negative Ur Leukocyte Esterase 3+ H Urine RBC 42 Urine WBC 765 Ur Epithelial Cells Rare Urine Mucus Rare 07/06/16 07:25 WBC 14.0 H RBC 2.78 L D Hgb 6.5 L* D Hct 20.2 L D MCV 72.8 L MCHC 31.9 L RDW 16.7 H Plt Count 153 MPV 9.4 Sodium Potassium Chloride Carbon Dioxide Anion Gap BUN Creatinine Random Glucose Calcium Total Bilirubin Direct Bilirubin AST ALT Alkaline Phosphatase Total Protein Albumin Urine Color Urine Appearance Urine pH Urine Protein Urine Glucose (UA) Urine Ketones Urine Blood Urine Nitrite Urine Bilirubin Urine Urobilinogen Ur Leukocyte Esterase Urine RBC Urine WBC Ur Epithelial Cells Urine Mucus Active Medications Generic Name Dose Route Start Last Admin Trade Name Freq PRN Reason Stop Dose Admin Aspirin 325 mg 07/06/16 08:00 Asa - PO DAILY@0800 ODETTE Hydralazine HCl 25 mg 07/05/16 22:00 07/05/16 22:29 Apresoline - PO 25 mg BID ODETTE Administration Hydromorphone HCl 0.5 mg 07/05/16 18:01 07/06/16 08:09 Dilaudid Injection - IVPB 0.5 mg Q4H PRN Administration PAIN Sodium Chloride 1,000 mls @ 42 mls/hr 07/05/16 18:01 07/05/16 19:55 Normal Saline - IV 42 mls/hr ASDIR ODETTE Administration Metoprolol Succinate 50 mg 07/06/16 10:00 Toprol Xl - PO DAILY [facility] ASSESSMENT/PLAN: Patient is a 89 year old female with past medical history of CKD (cr 1.5-1.9), HTN, CHF presented to the ED s/p mechanical fall was found to have Right Distal femoral fracture # Right Distal comminuted and displaced femoral fracture s/p mechanical fall "POD 1" Right distal femur replacement Patient did well after surgery. Vitals are stable. However, H/H dropped today from 8.3---> 6.5. Transfusion started 2PRBC. Patient is asymptomatic. Admitted in Med-Surg IV Dilaudid 0.5 mg Q4H PRN for pain Elizabeth catheter in place to be removed today. Bed rest Fall precautions. DVT prophylaxis on hold due to drop in H/H. Dr. Renteria Consult appreciated. # Anemia H/H : 8.3/26----> 6.5/20.2 2PRBC to be transfused today and repeat CBC at midnight after blood tranfusion is complete. During surgery, patient had negligible amount of blood loss. Needs further work up. # Hypertension-stable Resume Toprol XL 50mg Po Daily after surgery Resume Hydralazine 25mg PO BID # CKD baseline 1.5-1.9 Trend Cr 1.8 Avoid nephrotoxins. # Diastolic dysfunction with murmur of aortic stenosis Lasix 20mg is on home medication list but just confirmed with the pharmacy ( [facility]), she takes only hydralazine. Continue Hydralazine and Metoprolol 50mg Daily as per cardiology ECHO Done on 07/05/16: Left ventricular systolic function is mild-moderately reduced. Moderate mitral annular calcification. Left atrium is mildly dilated. Trace to mild mR. Moderate TR. May need aortic valve replacement (TAVR preferred), as per cardiology # FEN IV NS at 42 mls/hr Electrolytes to be repeated tomorrow. Sodium controlled diet. # Prophylaxis For DVT: Heparin SQ 5000U TID on hold since patient's H/H dropped; SCD's in place For GI: Not indicated Disposition: Admit to Med-surg. Duration of stay unknown. Case discussed with Dr. Bray. Visit type - Emergency Visit Emergency Visit: Yes ED Registration Date: 07/02/16 Care time: The patient presented to the Emergency Department on the above date and was hospitalized for further evaluation of their emergent condition. - New Patient This patient is new to me today: No - Critical Care Critical Care patient: No
[2016-07-06 08:27] LABS: CALCIUM 7.3 mg/dL (8.5-10.1); COCKROFT - GAULT 21.811; CREATININE 1.8 mg/dL (0.55-1.02); MAGNESIUM 2.2 mg/dL (1.8-2.4); PHOSPHOROUS 2.1 mg/dL (2.5-4.9)
[2016-07-06] MEDS: ASPIRIN 325 MG TABLET PO SCH (11:02)
[2016-07-06] MEDS: METOPROLOL SUCCINATE 50 MG TAB.SR.24H (FP) PO SCH (11:02)
[2016-07-06] MEDS: hydrALAZINE HCL 25 MG TABLET (FP) PO SCH ×2 (11:04→21:53)
[2016-07-06 11:58] LABS: ANISOCYTOSIS 2+; HYPOCHROMIA 1+; MICROCYTOSIS 2+; TARGET CELLS 1+
--- NOTE | 2016-07-06 12:46 | PN ---
Progress Note, Physician Chief Complaint: Events noted Not in distress post op History of Present Illness: Patient was seen and examined. Awake and alert. Chart was reviewed Denies chest pain, SOB or palpitations - Current Medication List Current Medications: Active Medications Aspirin (Asa -) 325 mg PO DAILY@0800 [facility] Last Admin: 07/06/16 11:02 Dose: 325 mg Hydralazine HCl (Apresoline -) 25 mg PO BID [facility] Last Admin: 07/06/16 11:04 Dose: 25 mg Hydromorphone HCl (Dilaudid Injection -) 0.5 mg IVPB Q4H PRN PRN Reason: PAIN Last Admin: 07/06/16 12:05 Dose: 0.5 mg Sodium Chloride (Normal Saline -) 1,000 mls @ 42 mls/hr IV ASDIR [facility] Last Admin: 07/05/16 19:55 Dose: 42 mls/hr Metoprolol Succinate (Toprol Xl -) 50 mg PO DAILY [facility] Last Admin: 07/06/16 11:02 Dose: 50 mg - Objective Vital Signs: Vital Signs Temperature 98.9 F 07/06/16 05:57 Pulse Rate 84 07/06/16 05:57 Respiratory Rate 18 07/06/16 05:57 Blood Pressure 127/62 07/06/16 05:57 O2 Sat by Pulse Oximetry (%) 96 07/05/16 21:00 Neck: Yes: Supple Cardiovascular: Yes: Regular Rate and Rhythm, Murmur (2/6 NASIR), S1, S2 Respiratory: Yes: CTA Bilaterally Gastrointestinal: Yes: Normal Bowel Sounds, Soft. No: Tenderness Edema: No Additional Findings/Remarks: - Review of Systems Constitutional: denies: Chills, Fever Cardiovascular: denies: Chest Pain, Palpitations, Shortness of Breath Respiratory: denies: Cough, Hemoptysis, Orthopnea, PND, SOB, SOB on Exertion Gastrointestinal: denies: Abdominal Pain, Constipation, Diarrhea, Melena, Nausea , Rectal Bleeding, Vomiting Genitourinary: denies: Dysuria Musculoskeletal: denies: Joint Pain Neurological: denies: Dizziness, Headache, Seizure, Syncope Labs: CBC, BMP 07/06/16 07:25 07/06/16 07:25 Problem List - Problems (1) Abnormal LFTs Code(s): R79.89 - OTHER SPECIFIED ABNORMAL FINDINGS OF BLOOD CHEMISTRY (2) [id number]-[id number] kidney injury Code(s): N17.9 - ACUTE KIDNEY FAILURE, UNSPECIFIED N18.9 - CHRONIC KIDNEY DISEASE, UNSPECIFIED (3) Anemia Code(s): D64.9 - ANEMIA, UNSPECIFIED Qualifiers: Iron deficiency anemia type: chronic blood loss (4) Diastolic dysfunction without heart failure Code(s): I51.9 - HEART DISEASE, UNSPECIFIED (5) Femur fracture, right Code(s): S72.91XA - UNSP FRACTURE OF RIGHT FEMUR, INIT FOR CLOS FX Qualifiers : Encounter type: initial encounter Femur location: unspecified portion of femur Fracture type: closed Fracture morphology: other fracture Qualified Code(s): S72.8X1A - Other fracture of right femur, initial encounter for closed fracture (6) Aortic stenosis Code(s): I35.0 - NONRHEUMATIC AORTIC (VALVE) STENOSIS Qualifiers: Cardiac valve disease etiology: nonrheumatic Qualified Code(s): I35.0 - Nonrheumatic aortic (valve) stenosis (7) HTN (hypertension) Code(s): I10 - ESSENTIAL (PRIMARY) HYPERTENSION Qualifiers: Hypertension type: essential hypertension Qualified Code(s): I10 - Essential (primary) hypertension Assessment/Plan 1. Post mechanical fall with right displaced distal femur, lateral tibial plateau fracture - post surgery 2. Acute on CKD (pre-renal) 3. Diastolic dysfunction with murmur of aortic stenosis 4. Microcytic anemia - reduced H/H 5. Abnormal LFTs PLAN: 1. Continue Toprol XL and Hydralazine as tolerated 2. Echocardiography reveals moderate to severe aortic valve stenosis. Will need to compare with office echocardiography from the past. At some point, patient may need aortic valve replacement (TAVR preferred) 3. Physical therapy and eventual rehab 4. Transfuse PRBC and closely follow H/H Further plans are to follow Chilango Motley MD
--- NOTE | 2016-07-06 13:38 | PN ---
Progress Note, Physician Chief Complaint: s/p right distal femoral replacement under general anesthesia History of Present Illness: right femoral and sciatic nerve block single shot for post op pain control. - Current Medication List Current Medications: Active Medications Aspirin (Asa -) 325 mg PO DAILY@0800 [facility] [place] Last Admin: 07/06/16 11:02 Dose: 325 mg Hydralazine HCl (Apresoline -) 25 mg PO BID [facility] Last Admin: 07/06/16 11:04 Dose: 25 mg Hydromorphone HCl (Dilaudid Injection -) 0.5 mg IVPB Q4H PRN PRN Reason: PAIN Last Admin: 07/06/16 12:05 Dose: 0.5 mg Sodium Chloride (Normal Saline -) 1,000 mls @ 42 mls/hr IV ASDIR [facility] [place] Last Admin: 07/05/16 19:55 Dose: 42 mls/hr Metoprolol Succinate (Toprol Xl -) 50 mg PO DAILY [facility] Last Admin: 07/06/16 11:02 Dose: 50 mg - Objective Vital Signs: Vital Signs Temperature 98.9 F 07/06/16 05:57 Pulse Rate 84 07/06/16 05:57 Respiratory Rate 18 07/06/16 05:57 Blood Pressure 127/62 07/06/16 05:57 O2 Sat by Pulse Oximetry (%) 96 07/05/16 21:00 Constitutional: Yes: Well Nourished Cardiovascular: Yes: WNL Respiratory: Yes: WNL, On Nasal O2 Gastrointestinal: Yes: WNL Labs: CBC, BMP 07/06/16 07:25 07/06/16 07:25 INR, PTT INR 1.10 (0.82-1.09) 07/03/16 06:00 Assessment/Plan patient pain under control, no nausea or vomiting, no anesthetic complications, will receive PRBC for anemia. dept of anesthesia will sign off care at this time.
--- NOTE | 2016-07-06 16:41 | PN ---
Progress Note, Physician History of Present Illness: Pt seen and examined at bedside. Her pain is controlled. She denies dysuria. - Current Medication List Current Medications: Active Medications Aspirin (Asa -) 325 mg PO DAILY@0800 [facility] Last Admin: 07/06/16 11:02 Dose: 325 mg Hydralazine HCl (Apresoline -) 25 mg PO BID [facility] Last Admin: 07/06/16 11:04 Dose: 25 mg Hydromorphone HCl (Dilaudid Injection -) 0.5 mg IVPB Q4H PRN PRN Reason: PAIN Last Admin: 07/06/16 12:05 Dose: 0.5 mg Sodium Chloride (Normal Saline -) 1,000 mls @ 42 mls/hr IV ASDIR [facility] Last Admin: 07/05/16 19:55 Dose: 42 mls/hr Metoprolol Succinate (Toprol Xl -) 50 mg PO DAILY [facility] Last Admin: 07/06/16 11:02 Dose: 50 mg - Objective Vital Signs: Vital Signs Temperature 97.5 F L 07/06/16 14:00 Pulse Rate 77 07/06/16 14:00 Respiratory Rate 20 07/06/16 14:00 Blood Pressure 123/50 07/06/16 14:00 O2 Sat by Pulse Oximetry (%) 97 07/06/16 09:00 Constitutional: Yes: Calm Eyes: Yes: Conjunctiva Clear HENT: Yes: Atraumatic Cardiovascular: Yes: S1, S2 Respiratory: Yes: CTA Bilaterally, On Nasal O2 Gastrointestinal: Yes: Soft Genitourinary: Yes: Incontinence Musculoskeletal: Yes: Other (hip pain) Edema: No Neurological: Yes: Oriented Psychiatric: Yes: Oriented Labs: CBC, BMP 07/06/16 07:25 07/06/16 07:25 INR, PTT INR 1.10 (0.82-1.09) 07/03/16 06:00 Problem List - Problems (1) Dxrdr-af-sdilihm kidney injury Code(s): N17.9 - ACUTE KIDNEY FAILURE, UNSPECIFIED N18.9 - CHRONIC KIDNEY DISEASE, UNSPECIFIED (2) Diastolic dysfunction without heart failure Code(s): I51.9 - HEART DISEASE, UNSPECIFIED (3) Femur fracture, right Code(s): S72.91XA - UNSP FRACTURE OF RIGHT FEMUR, INIT FOR CLOS FX Qualifiers : Encounter type: initial encounter Femur location: unspecified portion of femur Fracture type: closed Fracture morphology: other fracture Qualified Code(s): S72.8X1A - Other fracture of right femur, initial encounter for closed fracture Assessment/Plan Current Medications Generic Name Dose Route Start Last Admin Trade Name Freq PRN Reason Stop Dose Admin Aspirin 325 mg 07/06/16 08:00 07/06/16 11:02 Asa - PO 325 mg DAILY@0800 [facility] Administration Hydralazine HCl 25 mg 07/05/16 22:00 07/06/16 11:04 Apresoline - PO 25 mg BID OD[facility]TE Administration Hydromorphone HCl 0.5 mg 07/05/16 18:01 07/06/16 12:05 Dilaudid Injection - IVPB 0.5 mg Q4H PRN Administration PAIN Sodium Chloride 1,000 mls @ 42 mls/hr 07/05/16 18:01 07/05/16 19:55 Normal Saline - IV 42 mls/hr ASDIR [facility] Administration Metoprolol Succinate 50 mg 07/06/16 10:00 07/06/16 11:02 Toprol Xl - PO 50 mg DAILY ODETTE Administration Impression 1. CKD with acute component 2. HTN 3. H/O CHF - pt not in active failure 4. Right Femur fx following a mechanical fall 5. aortic stenosis 5. anemia 6. Microscopic Hematuria Plan - renal function stabilizing - pt to get prbc - monitor hg - will need outpt follow up - case discussed with family and daughter who is a nurse in [place] - encourage po intake - incentive spirometer - will need repeat ua to follow up microscopic hematuria - will follow Dr Bush
--- NOTE | 2016-07-06 17:27 | PN ---
Progress Note (short form) - Note Progress Note: Ortho Pt seen and examined s/p right distal femur replacement pod #1 Selected Entries 07/06/16 14:00 Temperature 97.5 F L Pulse Rate 77 Respiratory 20 Rate Blood Pressure 123/50 Laboratory Tests 07/06/16 07:25 WBC 14.0 H Hgb 6.5 L* D Hct 20.2 L D Plt Count 153 dressing c/d/i, calf soft, nt nvi a/p Receiving 2 units of PRBCs PT tomorrow dvt ppx pain control monitor h/h will follow
[2016-07-06] MEDS: SODIUM CHLORIDE 1,000 ML IV SCH (17:39)
--- NOTE | 2016-07-06 19:08 | PN ---
Teaching Attending Note Name of Resident: Cynthia Hardin ATTENDING PHYSICIAN STATEMENT I saw and evaluated the patient. I reviewed the resident's note and discussed the case with the resident. I agree with the resident's findings and plan as documented. SUBJECTIVE: Patient is doing well with no acute distress. s/p surgery OBJECTIVE: Vital Signs Temperature 98.1 F 07/06/16 18:00 Pulse Rate 74 07/06/16 18:00 Respiratory Rate 18 07/06/16 18:00 Blood Pressure 143/71 07/06/16 18:00 O2 Sat by Pulse Oximetry (%) 97 07/06/16 09:00 CBCD WBC 14.0 K/mm3 (4.0-10.0) H 07/06/16 07:25 RBC 2.78 M/mm3 (3.60-5.2) L D 07/06/16 07:25 Hgb 6.5 GM/dL (10.7-15.3) L* D 07/06/16 07:25 Hct 20.2 % (32.4-45.2) L D 07/06/16 07:25 MCV 72.8 fl (80-96) L 07/06/16 07:25 MCHC 31.9 g/dl (32.0-36.0) L 07/06/16 07:25 RDW 16.7 % (11.6-15.6) H 07/06/16 07:25 Plt Count 153 K/MM3 (134-434) 07/06/16 07:25 MPV 9.4 fl (7.5-11.1) 07/06/16 07:25 CMP Sodium 140 mmol/L (136-145) 07/06/16 07:25 Potassium 4.0 mmol/L (3.5-5.1) 07/06/16 07:25 Chloride 107 mmol/L (98-107) 07/06/16 07:25 Carbon Dioxide 19 mmol/L (21-32) L 07/06/16 07:25 Anion Gap 14 (8-16) 07/06/16 07:25 BUN 35 mg/dL (7-18) H 07/06/16 07:25 Creatinine 1.8 mg/dL (0.55-1.02) H 07/06/16 07:25 Creat Clearance w eGFR 21.06 (>60) 07/04/16 05:50 Random Glucose 127 mg/dL (74-106) H 07/06/16 07:25 Calcium 7.3 mg/dL (8.5-10.1) L 07/06/16 07:25 Total Bilirubin 1.0 mg/dL (0.2-1.0) 07/05/16 07:00 AST 93 U/L (15-37) H D 07/05/16 07:00 ALT 110 U/L (12-78) H 07/05/16 07:00 Alkaline Phosphatase 73 U/L (45-117) 07/05/16 07:00 Total Protein 5.7 g/dl (6.4-8.2) L 07/05/16 07:00 Albumin 3.1 g/dl (3.4-5.0) L 07/05/16 07:00 Current Medications Generic Name Dose Route Start Last Admin Trade Name Freq PRN Reason Stop Dose Admin Aspirin 325 mg 07/06/16 08:00 07/06/16 11:02 Asa - PO 325 mg DAILY@0800 [facility] Administration Hydralazine HCl 25 mg 07/05/16 22:00 07/06/16 11:04 Apresoline - PO 25 mg BID [facility] Administration Hydromorphone HCl 0.5 mg 07/05/16 18:01 07/06/16 12:05 Dilaudid Injection - IVPB 0.5 mg Q4H PRN Administration PAIN Sodium Chloride 1,000 mls @ 42 mls/hr 07/05/16 18:01 07/06/16 17:39 Normal Saline - IV Not Given ASDIR ODETTE Metoprolol Succinate 50 mg 07/06/16 10:00 07/06/16 11:02 Toprol Xl - PO 50 mg DAILY [facility] Administration Home Medications Medication Instructions Recorded Hydralazine HCl 50 mg PO BID 05/25/13 Metoprolol Succinate [Toprol Xl -] 25 mg PO DAILY 07/02/16 Furosemide [Lasix -] 20 mg PO DAILY 07/04/16 CXR 07/02/16: Borderline cardiomegaly and mild bilateral increased interstitial lung markings without evidence of focal infiltrates X-ray of the pelvis and right hip 07/02/16: Status post right hip replacement in satisfactory alignment X-ray of the right knee 07/02/16: Distal femoral fracture along superior margin of the condyles with displacement. ASSESSMENT/PLAN: 89 year old female with pmh CKD (cr 1.5-1.9), HTN, CHF presented to the ED s/p mechanical fall was found to have Right Distal femoral fracture # Acute Right Distal femoral fracture s/p mechanical fall s/p ORIF ; Morphine for pain. # Acute Anemia 7.8--6.5 will transfuse 2 units today ( Unknown reason for now ) will get Stool OB, will get GI involved for further w/u # aCUTE Dehydration on IVF Cr. 1.7-->2.2-->1.8 today will monitor # CKD with baseline 1.5-1.9, nOw creatinine of Cr 1.7-->2.2 today # HTN Resume Toprol XL 50mg & Hydralzine 25mg Po bid # Hx of CHF on Diuretic qod, On lasix 20mg, DVT prophylaxis: heparin on hold, SCds
[2016-07-07] MEDS: HYDROmorphone HCL CARPU-JECT 1 MG/1 ML DISP.SYRIN IVPB PRN ×2 (00:46→21:54)
[2016-07-07] MEDS: SODIUM CHLORIDE 1,000 ML IV SCH (00:46)
[2016-07-07 07:51] LABS: MCH 24.9 pg (25.7-33.7); MCHC 32.8 g/dl (32.0-36.0); MEAN CELL VOLUME 75.8 fl (80-96); MEAN PLT VOLUME 9.1 fl (7.5-11.1); PLATELET COUNT 164 K/MM3 (134-434); RDW 18.1 % (11.6-15.6); WHITE BLOOD COUNT 14.9 K/mm3 (4.0-10.0)
[2016-07-07] MEDS ORDERED: DOCUSATE SODIUM 100 MG CAPSULE (FP) PO PRN (08:20)
[2016-07-07 09:07] LABS: ALBUMIN 2.4 g/dl (3.4-5.0); BILIRUBIN,TOTAL 1.2 mg/dL (0.2-1.0); CALCIUM 7.6 mg/dL (8.5-10.1); COCKROFT - GAULT 21.811; CREATININE 1.8 mg/dL (0.55-1.02); MAGNESIUM 2.3 mg/dL (1.8-2.4); TOT PROT 5.1 g/dl (6.4-8.2)
[2016-07-07] MEDS: METOPROLOL SUCCINATE 50 MG TAB.SR.24H (FP) PO SCH (09:35)
[2016-07-07] MEDS: ASPIRIN 325 MG TABLET PO SCH (09:35)
[2016-07-07] MEDS: hydrALAZINE HCL 25 MG TABLET (FP) PO SCH ×2 (09:35→21:46)
[2016-07-07 09:42] LABS: FERRITIN 122.603 ng/ml (6.9-282.5)
--- NOTE | 2016-07-07 09:57 | PN ---
Progress Note (short form) - Note Progress Note: Ortho Pt seen and examined s/p right distal femur replacement pod #2 Selected Entries 07/07/16 05:30 Temperature 97.9 F Pulse Rate 78 Respiratory 22 Rate Blood Pressure 150/68 Laboratory Tests 07/07/16 06:20 WBC 14.9 H Hgb 9.1 L D Hct 27.9 L D Plt Count 164 dressing c/d/i, calf soft, nt nvi a/p PT dvt ppx pain control monitor h/h d/c planning
[2016-07-07] MEDS ORDERED: PT OWN MED DRAWER 7, Y5N ONE (10:32)
--- NOTE | 2016-07-07 11:14 | PN ---
Progress Note (short form) - Note Progress Note: S: 89 year old female, history of hypertension, chronic kidney disease, CHF, traumatic fracture of the distal femur and underwent surgery. Patient is complaining of surgical discomfort. Denies having palpitations, chest pain or discomfort, no history of dyspnea, PND or orthopnea. Active Medications Generic Name Dose Route Start Last Admin Trade Name Freq PRN Reason Stop Dose Admin Aspirin 325 mg 07/06/16 08:00 07/07/16 09:35 Asa - PO 325 mg DAILY@0800 [facility] Administration Docusate Sodium 100 mg 07/07/16 08:20 07/07/16 09:41 Colace - PO 100 mg DAILY PRN Administration CONSTIPATION Hydralazine HCl 25 mg 07/05/16 22:00 07/07/16 09:35 Apresoline - PO 25 mg BID [facility] Administration Hydromorphone HCl 0.5 mg 07/05/16 18:01 07/07/16 00:46 Dilaudid Injection - IVPB 0.5 mg Q4H PRN Administration PAIN Sodium Chloride 1,000 mls @ 42 mls/hr 07/05/16 18:01 07/07/16 00:46 Normal Saline - IV 42 mls/hr ASDIR [facility] Administration Metoprolol Succinate 50 mg 07/06/16 10:00 07/07/16 09:35 Toprol Xl - PO 50 mg DAILY [facility] Administration O: 89 year old female was in no acute distress, no pallor, cyanosis, clubbing, or jaundice. Last Vital Signs Temp Pulse Resp BP Pulse Ox 97.9 F 78 22 150/68 95 07/07/16 05:30 07/07/16 05:30 07/07/16 05:30 07/07/16 05:30 07/06/16 21:00 Neck: Supple, no JVD, negative HJR, carotids were equal and upstrokes were normal, no thyromegaly appreciated. Heart: PMI was in the 5th intercostal space, no heaves or thrills, S1 and S2 were normal. Ejection systolic murmur grade II/. No gallops were appreciated. Lungs: Clear on auscultation bilaterally. Abdomen: Soft, nontender, no hepatosplenomegaly appreciated, and no palpable masses were felt. Extremities: Right calf is swollen, mildly tender and the leg is bandaged. CBC, BMP 07/07/16 06:20 07/07/16 06:20 Laboratory Results - last 24 hr 07/06/16 07/06/16 07/06/16 04:30 07:25 09:30 WBC RBC Hgb Hct MCV MCHC RDW Plt Count MPV Hypochromic-Microcytic 1+ Anisocytosis 2+ Microcytosis 2+ Target Cells 1+ Sodium Potassium Chloride Carbon Dioxide Anion Gap BUN Creatinine Creat Clearance w eGFR Random Glucose Calcium Phosphorus Magnesium Ferritin Total Bilirubin AST ALT Alkaline Phosphatase Total Protein Albumin Vitamin B12 Serum Folate Ur Specific [place] 1.010 Blood Type O POSITIVE Antibody Screen Negative Crossmatch See Detail 07/07/16 07/07/16 07/07/16 06:20 06:20 06:20 WBC 14.9 H RBC 3.68 D Hgb 9.1 L D Hct 27.9 L D MCV 75.8 L MCHC 32.8 RDW 18.1 H Plt Count 164 MPV 9.1 Hypochromic-Microcytic Anisocytosis Microcytosis Target Cells Sodium 139 Potassium 4.3 Chloride 107 Carbon Dioxide 20 L Anion Gap 12 BUN 39 H Creatinine 1.8 H Creat Clearance w eGFR 26.55 Random Glucose 122 H Calcium 7.6 L Phosphorus 2.0 L Magnesium 2.3 Ferritin 122.603 Cancelled Total Bilirubin 1.2 H AST 44 H D ALT 30 D Alkaline Phosphatase 76 Total Protein 5.1 L Albumin 2.4 L D Vitamin B12 693 Cancelled Serum Folate 20 H Cancelled Ur Specific [place] Blood Type Antibody Screen Crossmatch Impression: (1) HTN (hypertension) Code(s): I10 - ESSENTIAL (PRIMARY) HYPERTENSION Qualifiers: Hypertension type: essential hypertension Qualified Code(s): I10 - Essential (primary) hypertension (2) Aortic stenosis Code(s): I35.0 - NONRHEUMATIC AORTIC (VALVE) STENOSIS Qualifiers: Cardiac valve disease etiology: nonrheumatic Qualified Code(s): I35.0 - Nonrheumatic aortic (valve) stenosis (3) Ikmxm-bj-whqsggh kidney injury Code(s): N17.9 - ACUTE KIDNEY FAILURE, UNSPECIFIED N18.9 - CHRONIC KIDNEY DISEASE, UNSPECIFIED (4) Anemia Code(s): D64.9 - ANEMIA, UNSPECIFIED Qualifiers: Iron deficiency anemia type: chronic blood loss (5) Diastolic dysfunction without heart failure Code(s): I51.9 - HEART DISEASE, UNSPECIFIED (6) Femur fracture, right Code(s): S72.91XA - UNSP FRACTURE OF RIGHT FEMUR, INIT FOR CLOS FX Qualifiers : Encounter type: initial encounter Femur location: unspecified portion of femur Fracture type: closed Fracture morphology: other fracture Qualified Code(s): S72.8X1A - Other fracture of right femur, initial encounter for closed fracture Recommendations: 1. Continue current anti hypertensive therapy. 2. Follow up CBC and basic metabolic profile. Attestation: Documentation prepared by Agusto Gallegos, acting as medical office supervisor for Neymar Goode MD.
--- NOTE | 2016-07-07 13:03 | PN ---
Progress Note, Physician History of Present Illness: Pt seen and examined at bedside. She is agitated today. - Current Medication List Current Medications: Active Medications Aspirin (Asa -) 325 mg PO DAILY@0800 [facility] Last Admin: 07/07/16 09:35 Dose: 325 mg Docusate Sodium (Colace -) 100 mg PO DAILY PRN PRN Reason: CONSTIPATION Last Admin: 07/07/16 09:41 Dose: 100 mg Hydralazine HCl (Apresoline -) 25 mg PO BID [facility] Last Admin: 07/07/16 09:35 Dose: 25 mg Hydromorphone HCl (Dilaudid Injection -) 0.5 mg IVPB Q4H PRN PRN Reason: PAIN Last Admin: 07/07/16 00:46 Dose: 0.5 mg Sodium Chloride (Normal Saline -) 1,000 mls @ 42 mls/hr IV ASDIR [facility] Last Admin: 07/07/16 00:46 Dose: 42 mls/hr Metoprolol Succinate (Toprol Xl -) 50 mg PO DAILY [facility] Last Admin: 07/07/16 09:35 Dose: 50 mg - Objective Vital Signs: Vital Signs Temperature 97.9 F 07/07/16 05:30 Pulse Rate 78 07/07/16 05:30 Respiratory Rate 22 07/07/16 05:30 Blood Pressure 150/68 07/07/16 05:30 O2 Sat by Pulse Oximetry (%) 95 07/06/16 21:00 Constitutional: Yes: Anxious Eyes: Yes: Conjunctiva Clear HENT: Yes: Atraumatic Neck: Yes: Supple Cardiovascular: Yes: S1, S2 Gastrointestinal: Yes: Soft Genitourinary: Yes: Incontinence Musculoskeletal: Yes: Other (hip pain) Edema: No Neurological: Yes: Oriented Labs: CBC, BMP 07/07/16 06:20 07/07/16 06:20 INR, PTT INR 1.10 (0.82-1.09) 07/03/16 06:00 Problem List - Problems (1) [id number] kidney injury Code(s): N17.9 - ACUTE KIDNEY FAILURE, UNSPECIFIED N18.9 - CHRONIC KIDNEY DISEASE, UNSPECIFIED (2) Diastolic dysfunction without heart failure Code(s): I51.9 - HEART DISEASE, UNSPECIFIED (3) Femur fracture, right Code(s): S72.91XA - UNSP FRACTURE OF RIGHT FEMUR, INIT FOR CLOS FX Qualifiers : Encounter type: initial encounter Femur location: unspecified portion of femur Fracture type: closed Fracture morphology: other fracture Qualified Code(s): S72.8X1A - Other fracture of right femur, initial encounter for closed fracture Assessment/Plan Current Medications Generic Name Dose Route Start Last Admin Trade Name Freq PRN Reason Stop Dose Admin Aspirin 325 mg 07/06/16 08:00 07/07/16 09:35 Asa - PO 325 mg DAILY@0800 [facility] Administration Docusate Sodium 100 mg 07/07/16 08:20 07/07/16 09:41 Colace - PO 100 mg DAILY PRN Administration CONSTIPATION Hydralazine HCl 25 mg 07/05/16 22:00 07/07/16 09:35 Apresoline - PO 25 mg BID [facility] Administration Hydromorphone HCl 0.5 mg 07/05/16 18:01 07/07/16 00:46 Dilaudid Injection - IVPB 0.5 mg Q4H PRN Administration PAIN Sodium Chloride 1,000 mls @ 42 mls/hr 07/05/16 18:01 07/07/16 00:46 Normal Saline - IV 42 mls/hr ASDIR [facility] Administration Metoprolol Succinate 50 mg 07/06/16 10:00 07/07/16 09:35 Toprol Xl - PO 50 mg DAILY [facility]TE Administration Impression 1. CKD with acute component 2. HTN 3. H/O CHF - pt not in active failure 4. Right Femur fx following a mechanical fall 5. aortic stenosis 5. anemia 6. Microscopic Hematuria Plan - pain control, avoid nsaids - outpt follow up and workup - renal function stable for now - monitor hg - gentle hydration - encourage po intake - incentive spirometer - will need repeat ua to follow up microscopic hematuria - will follow Dr Bush
--- NOTE | 2016-07-07 14:42 | CON.PULM ---
Consult Consult Specialty:: PULMONARY Referred by:: DILLON Reason for Consultation:: COPD - History of Present Illness Chief Complaint: FALL WITH INJURY TO RIGHT KNEE History of Present Illness: 89y F patient of mine for past 25 years presents to ER with complaint of R knee pain. Pt was in her usual state of health, and was wearing stockings and slipped down 5 steps, falling with her arm in an externally rotated direction. Pt denies any head injury, neck pain, back pain, loc, hx of cp/sp/aplipations/ abd pain. pt denies any numbness/tingling weakness. Patient was found to have a comminuted fracture of right distal femur. She presently is s/p right distal femur replacement. 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 No: AFIB Pulmonary: Yes: COPD Gastrointestinal: No: Ascites Hepatobiliary: No: Cirrhosis Renal/: Yes: Renal Inusuff Reproductive: Yes: Postmenopausal ...: No Heme/Onc: Yes: Anemia Infectious Disease: No: AIDS Psych: No: Addictions Musculoskeletal: Yes: Chronic low back pain Endocrine: No: Portage's Disease - Past Surgical History Past Surgical History: Yes: Cholecystectomy, Hysterectomy, Joint Replacement ( right shouldr and bilateral hips) - Alcohol/Substance Use Hx Alcohol Use: No - Smoking History Smoking history: Former smoker Have you smoked in the past 12 months: Yes Aproximately how many cigarettes per day: 3 - Social History Usual Living Arrangement: Alone ADL: Independent Place of : [facility] History of Recent Travel: No Home Medications - Allergies Allergies/Adverse Reactions: Allergies Allergy/AdvReac Type Severity Reaction Status Date / Time Penicillins Allergy Rash Verified 07/02/16 17:08 - Home Medications Home Medications: Ambulatory Orders Hydralazine HCl 50 mg PO BID 05/25/13 Metoprolol Succinate [Toprol Xl -] 25 mg PO DAILY 07/02/16 Furosemide [Lasix -] 20 mg PO DAILY 07/04/16 Family Disease History - Family Disease History Family History: Unremarkable Review of Systems - Review of Systems Constitutional: denies: Fever Eyes: denies: Blurred Vision HENT: denies: Difficult Swallowing Neck: denies: Decreased ROM Cardiovascular: denies: Chest Pain Respiratory: denies: Cough Gastrointestinal: denies: Abdominal Pain Genitourinary: denies: Burning Breasts: reports: No Symptoms Reported Musculoskeletal: reports: Joint Swelling (right knee) Physical Exam Vital Sings: Vital Signs Temperature 97.7 F 07/07/16 10:00 Pulse Rate 100 H 07/07/16 10:00 Respiratory Rate 18 07/07/16 10:00 Blood Pressure 154/75 07/07/16 10:00 O2 Sat by Pulse Oximetry (%) 93 L 07/07/16 12:00 Constitutional: Yes: Calm Eyes: Yes: EOM Intact HENT: Yes: Normocephalic Neck: Yes: Trachea Midline Cardiovascular: Yes: S1, S2 Respiratory: Yes: Diminished Gastrointestinal: Yes: Normal Bowel Sounds Extremities: Yes: Other (right knee edema post-op) Neurological: Yes: Oriented Psychiatric: Yes: Alert Labs: CBC, BMP 07/07/16 06:20 07/07/16 06:20 reviewed Imaging - Results Chest X-ray: Report Reviewed X-ray: Report Reviewed Cat Scan: Report Reviewed Problem List - Problems (1) [id number]-[id number] kidney injury Code(s): N17.9 - ACUTE KIDNEY FAILURE, UNSPECIFIED N18.9 - CHRONIC KIDNEY DISEASE, UNSPECIFIED (2) Anemia Code(s): D64.9 - ANEMIA, UNSPECIFIED Qualifiers: Iron deficiency anemia type: chronic blood loss (3) Diastolic dysfunction without heart failure Code(s): I51.9 - HEART DISEASE, UNSPECIFIED (4) Femur fracture, right Code(s): S72.91XA - UNSP FRACTURE OF RIGHT FEMUR, INIT FOR CLOS FX Qualifiers : Encounter type: initial encounter Femur location: unspecified portion of femur Fracture type: closed Fracture morphology: other fracture Qualified Code(s): S72.8X1A - Other fracture of right femur, initial encounter for closed fracture (5) HTN (hypertension) Code(s): I10 - ESSENTIAL (PRIMARY) HYPERTENSION Qualifiers: Hypertension type: essential hypertension Qualified Code(s): I10 - Essential (primary) hypertension Assessment/Plan POST-OP DVT PROPHYLAXSIS O2 PRN/INCENTIVE BASSEM/BRONCHODILATORS NEEDED NEEDS PT THANK YOU Nikki MEDNOZA MD
--- NOTE | 2016-07-07 14:52 | PATH ---
Surgical Pathology Report Patient Name: ANGELA JEROME Med. Rec. #: [id number] /Age/Gender: 1925 (Age: 89) / F Account: [id number] Location: [address] [place] [address]/[facility] Taken: 07/05/2016 Received: 07/06/2016 Reported: 07/07/2016 Physicians: Chavez Renteria M.D. Specimen(s) Received RIGHT DISTAL FEMUR BONE Clinical History Fracture of right femur Final Diagnosis BONE, RIGHT DISTAL FEMUR, DISTAL FEMUR REPLACEMENT: BONE WITH FOCAL NECROSIS AND HEMORRHAGE CONSISTENT WITH FRACTURE SITE. ARTICULAR SURFACE WITH DEGENERATIVE CHANGES. Electronically Signed Edgard Loera M.D. Gross Description Received in formalin labeled "right distal femur bone" are 4 moreira, irregular portions of bone, consistent with portions of a tibial plateau and femoral condyles. There are multiple areas of eburnation present, measuring up to 4.5 cm in greatest dimension. The remaining articular surfaces are moreira-yellow and focally granular. The underlying trabecular bone is focally hemorrhagic. Multi Sensor Operator sections are submitted in one cassette, following decalcification. /07/06/2016 [facility]/07/06/2016
--- NOTE | 2016-07-07 16:16 | PN ---
Physical Exam: SUBJECTIVE: Patient seen and examined at bed side this morning. Complained she hasn't moved her bowels since a couple of days. Has pain 5/10 at the surgical site, controlled by pain medication. Denies abdominal pain, nausea or vomiting, chest pain, sob, cough, palpitation, fever, chills, rigors or sweating. OBJECTIVE: Vital Signs Period Temp Pulse Resp BP Sys/Ramírez Pulse Ox Last 24 Hr 97.7 F-98.2 F 74-100 18-22 143-154/68-75 93-95 GENERAL: Elderly female, awake, alert, and fully oriented, in no acute distress. HEAD: Normal with no signs of trauma. EYES: EOM intact, no pallor or icterus. ENT: Ears normal. moist mucous membranes. NECK: Supple. LUNGS: Breath sounds equal, clear to auscultation bilaterally, no wheezes, no crackles, no accessory muscle use. HEART: Regular rate and rhythm, S1, S2 with systolic murmur, grade 2/6, left second intercoastal space. ABDOMEN: Soft, nontender, nondistended, normoactive bowel sounds, no guarding, no rebound, no hepatosplenomegaly, no masses. UPPER EXTREMITIES: 2+ pulses, warm, well-perfused, no edema. Right LOWER EXTREMITy: Bandage applied at the anterior right thigh, slightly swollen than the left, didn't open it. Can wiggle toes, peripheral pulses intact. Left Lower extremity: 2+ pulses, warm, well-perfused, no edema. NEUROLOGICAL: Cranial nerves II through XII grossly intact. Normal speech, gait not observed. PSYCH: Normal mood, normal affect. SKIN: Warm, dry, normal turgor, no rashes or lesions noted. Laboratory Results - last 24 hr 07/06/16 07/07/16 07/07/16 09:30 06:20 06:20 WBC 14.9 H RBC 3.68 D Hgb 9.1 L D Hct 27.9 L D MCV 75.8 L MCHC 32.8 RDW 18.1 H Plt Count 164 MPV 9.1 Sodium 139 Potassium 4.3 Chloride 107 Carbon Dioxide 20 L Anion Gap 12 BUN 39 H Creatinine 1.8 H Creat Clearance w eGFR 26.55 Random Glucose 122 H Calcium 7.6 L Phosphorus 2.0 L Magnesium 2.3 Ferritin 122.603 Total Bilirubin 1.2 H AST 44 H D ALT 30 D Alkaline Phosphatase 76 Total Protein 5.1 L Albumin 2.4 L D Vitamin B12 693 Serum Folate 20 H Stool Occult Blood Blood Type O POSITIVE Antibody Screen Negative Crossmatch See Detail 07/07/16 07/07/16 06:20 15:00 WBC RBC Hgb Hct MCV MCHC RDW Plt Count MPV Sodium Potassium Chloride Carbon Dioxide Anion Gap BUN Creatinine Creat Clearance w eGFR Random Glucose Calcium Phosphorus Magnesium Ferritin Cancelled Total Bilirubin AST ALT Alkaline Phosphatase Total Protein Albumin Vitamin B12 Cancelled Serum Folate Cancelled Stool Occult Blood Negative Blood Type Antibody Screen Crossmatch Active Medications Generic Name Dose Route Start Last Admin Trade Name Freq PRN Reason Stop Dose Admin Aspirin 325 mg 07/06/16 08:00 07/07/16 09:35 Asa - PO 325 mg DAILY@0800 ODETTE Administration Docusate Sodium 100 mg 07/07/16 08:20 07/07/16 09:41 Colace - PO 100 mg DAILY PRN Administration CONSTIPATION Hydralazine HCl 25 mg 07/05/16 22:00 07/07/16 09:35 Apresoline - PO 25 mg BID ODETTE Administration Hydromorphone HCl 0.5 mg 07/05/16 18:01 07/07/16 00:46 Dilaudid Injection - IVPB 0.5 mg Q4H PRN Administration PAIN Sodium Chloride 1,000 mls @ 42 mls/hr 07/05/16 18:01 07/07/16 00:46 Normal Saline - IV 42 mls/hr ASDIR ODETTE Administration Metoprolol Succinate 50 mg 07/06/16 10:00 07/07/16 09:35 Toprol Xl - PO 50 mg DAILY ODETTE Administration ASSESSMENT/PLAN: Patient is a 89 year old female with past medical history of CKD (cr 1.5-1.9), HTN, CHF presented to the ED s/p mechanical fall was found to have Right Distal femoral fracture # Right Distal comminuted and displaced femoral fracture s/p mechanical fall "POD 1" Right distal femur replacement Patient did well after surgery. Vitals are stable. However, H/H dropped today from 8.3---> 6.5. on 07/06/16. 2PRBC was transfused and Hb is 9.1/27.9 . Patient is asymptomatic. Admitted in Med-Surg IV Dilaudid 0.5 mg Q4H PRN for pain Bed rest Fall precautions. DVT prophylaxis on hold due to drop in H/H. Dr. Renteria Consult appreciated. CT scan of right lower extremity ordered r/o any hematoma. # Anemia H/H : 8.3/----> 6.5/20.2------>2PRBC 07/06/16--->9.1/27.9 Repeat CBC at 4:30pm ordered, pending result. May need transfusion depending upon the repeat Hb. During surgery, patient had negligible amount of blood loss. Iron profile pending. No blood noted during per rectal exam as per attending. # Hypertension-stable Resume Toprol XL 50mg Po Daily after surgery Resume Hydralazine 25mg PO BID # CKD baseline 1.5-1.9 Trend Cr 1.8 Avoid nephrotoxins. Gentle hydration # Diastolic dysfunction with murmur of aortic stenosis Lasix 20mg is on home medication list but just confirmed with the pharmacy ( [facility]), she takes only hydralazine. Continue Hydralazine and Metoprolol 50mg Daily as per cardiology ECHO Done on 07/05/16: Left ventricular systolic function is mild-moderately reduced. Moderate mitral annular calcification. Left atrium is mildly dilated. Trace to mild mR. Moderate TR. May need aortic valve replacement (TAVR preferred), as per cardiology # FEN IV NS at 42 mls/hr Electrolytes to be repeated tomorrow. Sodium controlled diet. # Prophylaxis For DVT: Heparin SQ 5000U TID on hold since patient's H/H dropped; SCD's in place For GI: Not indicated Disposition: Admit to Med-surg. Duration of stay unknown. Case discussed with Dr. Gonzalez. Visit type - Emergency Visit Emergency Visit: Yes ED Registration Date: 07/02/16 Care time: The patient presented to the Emergency Department on the above date and was hospitalized for further evaluation of their emergent condition. - New Patient This patient is new to me today: No - Critical Care Critical Care patient: No - Discharge Referral Referred to [facility] No
--- NOTE | 2016-07-07 17:31 | PN ---
Teaching Attending Note Name of Resident: Cynthia Hardin ATTENDING PHYSICIAN STATEMENT I saw and evaluated the patient. I reviewed the resident's note and discussed the case with the resident. I agree with the resident's findings and plan as documented. SUBJECTIVE: no fever or chills,pain is controlled. has no h/o rectal bleed.has no abd pain, no CP or OSB OBJECTIVE: NAD , awake and alert oriented x3 . HEENT: MMM, no facial droop. CV: RRR, 3/6 SM heard at base and LLSB and apex ( best heard at LLSB ) . lungs : CTAB Ext : RLE , with a surgical dressing on anterior knee , with edema , erythema on Lower thigh , knee and upper leg. bruising on lateral knee DP 2+ b/l nl feet sensation and can wound specialist toes and ankles Rectal : nl hair distribution , has rectal tags , no fissure, no internal hemorrhoids or masses. rectum full of soft yellow stool. OB Neg . ASSESSMENT AND PLAN: 89 y/o lady with h/o thalassemia trait , CKD , Chronic systolic CHF , diverticulosis , and who presented with R LE paina fter a mechanical fall, was found to have R comminuted distal femoral fx and proximal tibial Fx . Now s/ p ORIF 1- Mechanical fall s/p R comminuted distal femoral fx and proximal tibial Fx . Now s/p ORIF. no syncope . pain is controlled - cont pain control - bowel regimen - ASA for DVT px 2- Chronic microcytic anemia with acute drop in Hb, after sx. blood loss during surgery was minimal, she has thalassemia trait and has chronic anemia, and had dropped before. Unlikely she has GI bleed , although she has divertculosis. her rectal exam revealed yellow stool with neg OB . To have LOWer GI bleed with drop of HB to 6.5 she will have sx or visible blood - check iron studies. - CT of RLE to r/o hematoma - s/p 2 units of RBC with appropriate response - OK with ASA for now , as LE hematoma is also low in differential - unable to reach ortho to discuss case 3- CKD : Cr at base line dc IVF as has good pO intake 4- : f/u as out pt 5-need PT eval. and placement
--- NOTE | 2016-07-07 19:39 | CON.GI ---
Consult Consult Specialty:: GASTROENTEROLOGY - History of Present Illness Chief Complaint: ANEMIA History of Present Illness: 89 YEAR OLD FEMALE WHO WAS ADMITTED TO THE HOSPITAL WITH A RIGHT FEMORAL FRACTURE AFTER A MECHANICAL FALL. SHE WAS REPAIRED WITH A FEMORAL YAIMA AND KNEE REPLACEMENT. CONSULT WAS CALLED DUE TO FALLING H&H. THE PATIENT AND HER FAMILY TELL ME SHE HAS THALASSEMIA. SHE DENIES ANY RECTAL BLEEDING OR MELENA. SHE HAS A HISTORY OF CONTIPATION AND SEVERE DIVERTICULOSIS WITH PELVIC ADHESIONS. SHE HAS ESOPHAGEAL DYSMOTILITY AND A HIATAL HERNIA. HER STOOLS SO FAR HAVE BEEN NEGATIVE FOR BLOOD. 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 No: AFIB Pulmonary: Yes: COPD Gastrointestinal: No: Ascites Hepatobiliary: No: Cirrhosis Renal/: Yes: Renal Inusuff ...: No Heme/Onc: Yes: Anemia Infectious Disease: No: AIDS Psych: No: Addictions Musculoskeletal: Yes: Chronic low back pain Endocrine: No: Fabius's Disease - Past Surgical History Past Surgical History: Yes: Cholecystectomy, Colonoscopy, Hysterectomy, Joint Replacement (right shouldr and bilateral hips) - Alcohol/Substance Use Hx Alcohol Use: No - Smoking History Smoking history: Former smoker Have you smoked in the past 12 months: Yes Aproximately how many cigarettes per day: 3 - Social History Usual Living Arrangement: Alone ADL: Independent History of Recent Travel: No Home Medications - Allergies Allergies/Adverse Reactions: Allergies Allergy/AdvReac Type Severity Reaction Status Date / Time Penicillins Allergy Rash Verified 07/02/16 17:08 - Home Medications Home Medications: Ambulatory Orders Hydralazine HCl 50 mg PO BID 05/25/13 Metoprolol Succinate [Toprol Xl -] 25 mg PO DAILY 07/02/16 Furosemide [Lasix -] 20 mg PO DAILY 07/04/16 Review of Systems - Review of Systems Constitutional: reports: No Symptoms Eyes: reports: No Symptoms HENT: reports: No Symptoms Neck: reports: No Symptoms Cardiovascular: reports: No Symptoms Respiratory: reports: No Symptoms Gastrointestinal: reports: Constipation Genitourinary: reports: No Symptoms Musculoskeletal: reports: Extremity Pain, Joint Pain, Joint Swelling, Muscle Pain Integumentary: reports: No Symptoms Neurological: reports: No Symptoms Endocrine: reports: No Symptoms Hematology/Lymphatic: reports: No Symptoms Psychiatric: reports: No Symptoms Physical Exam-GI Vital Signs: Vital Signs Temperature 98.2 F 07/07/16 14:00 Pulse Rate 76 07/07/16 14:00 Respiratory Rate 20 07/07/16 14:00 Blood Pressure 145/70 07/07/16 14:00 O2 Sat by Pulse Oximetry (%) 93 L 07/07/16 12:00 Constitutional: Yes: No Distress Eyes: Yes: Conjunctiva Clear HENT: Yes: Normocephalic Neck: Yes: Supple Cardiovascular: Yes: Regular Rate and Rhythm Respiratory: Yes: WNL Gastrointestinal Inspection: Yes: Scars ...Auscultate: Yes: Normoactive Bowel Sounds ...Palpate: Yes: Soft ...Rectal Exam: Yes: Guaiac Negative Musculoskeletal: Yes: Other Extremities: Yes: WNL, Other (RIGHT LOWER EXT DRESSING C/D/I) Labs: CBC, BMP 07/07/16 06:20 07/07/16 06:20 INR, PTT INR 1.10 (0.82-1.09) 07/03/16 06:00 Laboratory Tests 07/02/16 07/03/16 07/03/16 18:00 03:00 06:00 WBC 14.5 H D RBC 4.83 Hgb 10.6 L Hct 34.0 MCV 70.4 L MCHC 31.1 L RDW 16.3 H D Plt Count 245 INR 1.10 Sodium Potassium Chloride Carbon Dioxide Anion Gap BUN Creatinine Creat Clearance w eGFR Random Glucose Calcium Phosphorus Magnesium Ferritin Total Bilirubin AST ALT Alkaline Phosphatase Total Protein Albumin Vitamin B12 Serum Folate Urine Blood 1+ H Stool Occult Blood 07/04/16 07/06/16 07/06/16 05:50 04:30 07:25 WBC 15.6 H D 14.0 H RBC 3.46 L 2.78 L D Hgb 7.8 L 6.5 L* D Hct 25.0 L 20.2 L D MCV 72.4 L 72.8 L MCHC 31.3 L 31.9 L RDW 16.8 H 16.7 H Plt Count 164 153 INR Sodium Potassium Chloride Carbon Dioxide Anion Gap BUN Creatinine Creat Clearance w eGFR Random Glucose Calcium Phosphorus Magnesium Ferritin Total Bilirubin AST ALT Alkaline Phosphatase Total Protein Albumin Vitamin B12 Serum Folate Urine Blood 2+ H Stool Occult Blood 07/07/16 07/07/16 07/07/16 06:20 06:20 15:00 WBC 14.9 H RBC 3.68 D Hgb 9.1 L D Hct 27.9 L D MCV 75.8 L MCHC 32.8 RDW 18.1 H Plt Count 164 INR Sodium 139 Potassium 4.3 Chloride 107 Carbon Dioxide 20 L Anion Gap 12 BUN 39 H Creatinine 1.8 H Creat Clearance w eGFR 26.55 Random Glucose 122 H Calcium 7.6 L Phosphorus 2.0 L Magnesium 2.3 Ferritin 122.603 Total Bilirubin 1.2 H AST 44 H D ALT 30 D Alkaline Phosphatase 76 Total Protein 5.1 L Albumin 2.4 L D Vitamin B12 693 Serum Folate 20 H Urine Blood Stool Occult Blood Negative Problem List - Problems (1) Anemia Assessment/Plan: THERE IS NO EVIDENCE OR SIGNS OF ANY GI BLOOD LOSS. I WOULD CONTINUE TO GET STOOL OB FOR A COUPLE OF DAYS MORE. I WOULD CHECK ON THE HISTORY OF THALASSEMIA. THERE IS AN ELEMENT OF BLOOD LOSS FROM THE SURGERY. HER RENAL DISEASE IS ALSO PLAYING A ROLE. Code(s): D64.9 - ANEMIA, UNSPECIFIED Qualifiers: Iron deficiency anemia type: chronic blood loss (2) Femur fracture, right Code(s): S72.91XA - UNSP FRACTURE OF RIGHT FEMUR, INIT FOR CLOS FX Qualifiers : Encounter type: initial encounter Femur location: unspecified portion of femur Fracture type: closed Fracture morphology: other fracture Qualified Code(s): S72.8X1A - Other fracture of right femur, initial encounter for closed fracture (3) Diverticulosis large intestine w/o perforation or abscess w/o bleeding Assessment/Plan: HIGH FIBER DIET, METAMUCIL AND MIRALAX Code(s): K57.30 - DVRTCLOS OF LG INT W/O PERFORATION OR ABSCESS W/O BLEEDING
[2016-07-07 19:44] LABS: MCH 24.2 pg (25.7-33.7); MCHC 32.1 g/dl (32.0-36.0); MEAN CELL VOLUME 75.6 fl (80-96); MEAN PLT VOLUME 9.7 fl (7.5-11.1); PLATELET COUNT 194 K/MM3 (134-434); RDW 18.5 % (11.6-15.6)
[2016-07-07 20:52] LABS: URINE APPEARANCE CLEAR; URINE BILIRUBIN NEGATIVE (NEGATIVE); URINE COLOR LTYELLOW; URINE GLUCOSE (UA) NEGATIVE (NEGATIVE); URINE KETONE NEGATIVE (NEGATIVE); URINE NITRITE NEGATIVE (NEGATIVE); URINE UROBILINOGEN NEGATIVE E.U./dl (0.2-1.0)
[2016-07-07 21:17] LABS: URINE BLOOD 2+ (NEGATIVE); URINE LEUK ESTERASE 1+ (NEGATIVE); URINE PROTEIN 1+ (NEGATIVE)
[2016-07-07 21:20] LABS: URINE MUCUS RARE; URINE RBC 2 /hpf (0-3); URINE WBC 12 /hpf (3-5)
[2016-07-07] MEDS: SENNOSIDES 8.6MG TABLET (FP) PO SCH (21:46)
[2016-07-07] MEDS: PSYLLIUM 5.85 GM PACKET PO SCH (21:51)
[2016-07-08 06:06] LABS: SERUM IRON 16 ug/dL (27-139); TOTAL IRON BINDING CAPACITY 193 ug/dL (250-450); UIBC 177 ug/dL (118-369)
[2016-07-08 08:04] LABS: CALCIUM 7.3 mg/dL (8.5-10.1); COCKROFT - GAULT 26.1715; CREATININE 1.5 mg/dL (0.55-1.02)
--- NOTE | 2016-07-08 08:38 | PN ---
Physical Exam: SUBJECTIVE: Patient seen and examined at bed side this morning. Complained of being very tired and would like to sleep. Pain over the surgical site controlled with medication. Denies chest pain, sob, cough, palpitation, abdominal pain, nausea or vomiting. Bowel movement one episode yesterday. OBJECTIVE: Vital Signs Period Temp Pulse Resp BP Sys/Ramírez Pulse Ox Last 24 Hr 97.7 F-98.7 F 68-100 18-20 138-154/70-78 93-95 GENERAL: Elderly female, awake, alert, and fully oriented, in no acute distress. HEAD: Normal with no signs of trauma. EYES: EOM intact, no pallor or icterus. ENT: Ears normal. moist mucous membranes. NECK: Supple. LUNGS: Breath sounds equal, clear to auscultation bilaterally, no wheezes, no crackles, no accessory muscle use. HEART: Regular rate and rhythm, S1, S2 with systolic murmur, grade 2/6, left second intercoastal space. ABDOMEN: Soft, nontender, nondistended, normoactive bowel sounds, no guarding, no rebound, no hepatosplenomegaly, no masses. UPPER EXTREMITIES: 2+ pulses, warm, well-perfused, no edema. Right LOWER EXTREMITy: Bandage applied at the anterior right thigh, slightly swollen than the left, didn't open it. Can wiggle toes, peripheral pulses intact. Left Lower extremity: 2+ pulses, warm, well-perfused, no edema. NEUROLOGICAL: Cranial nerves II through XII grossly intact. Normal speech, gait not observed. PSYCH: Normal mood, normal affect. SKIN: Warm, dry, normal turgor, no rashes or lesions noted. Laboratory Results - last 24 hr 07/07/16 07/07/16 07/07/16 06:20 06:20 06:20 WBC RBC Hgb Hct MCV MCHC RDW Plt Count MPV Sodium 139 Potassium 4.3 Chloride 107 Carbon Dioxide 20 L Anion Gap 12 BUN 39 H Creatinine 1.8 H Creat Clearance w eGFR 26.55 Random Glucose 122 H Calcium 7.6 L Phosphorus 2.0 L Magnesium 2.3 Iron 16 L TIBC 193 L Iron Saturation 8 L Ferritin 122.603 Cancelled Total Bilirubin 1.2 H AST 44 H D ALT 30 D Alkaline Phosphatase 76 Total Protein 5.1 L Albumin 2.4 L D Vitamin B12 693 Cancelled Serum Folate 20 H Cancelled Urine Color Urine Appearance Urine pH Ur Specific [place] Urine Protein Urine Glucose (UA) Urine Ketones Urine Blood Urine Nitrite Urine Bilirubin Urine Urobilinogen Ur Leukocyte Esterase Urine RBC Urine WBC Ur Epithelial Cells Urine Mucus Stool Occult Blood 07/07/16 07/07/16 07/07/16 15:00 18:55 19:00 WBC 14.0 H RBC 3.59 L Hgb 8.7 L Hct 27.2 L MCV 75.6 L MCHC 32.1 RDW 18.5 H Plt Count 194 MPV 9.7 Sodium Potassium Chloride Carbon Dioxide Anion Gap BUN Creatinine Creat Clearance w eGFR Random Glucose Calcium Phosphorus Magnesium Iron TIBC Iron Saturation Ferritin Total Bilirubin AST ALT Alkaline Phosphatase Total Protein Albumin Vitamin B12 Serum Folate Urine Color Ltyellow Urine Appearance Clear Urine pH 5.0 Ur Specific [place] 1.010 Urine Protein 1+ H Urine Glucose (UA) Negative Urine Ketones Negative Urine Blood 2+ H Urine Nitrite Negative Urine Bilirubin Negative Urine Urobilinogen Negative Ur Leukocyte Esterase 1+ H D Urine RBC 2 Urine WBC 12 Ur Epithelial Cells Rare Urine Mucus Rare Stool Occult Blood Negative 07/08/16 06:10 WBC RBC Hgb Hct MCV MCHC RDW Plt Count MPV Sodium 140 Potassium 4.1 Chloride 106 Carbon Dioxide 20 L Anion Gap 14 BUN 32 H Creatinine 1.5 H Creat Clearance w eGFR Random Glucose 97 D Calcium 7.3 L Phosphorus Magnesium Iron TIBC Iron Saturation Ferritin Total Bilirubin AST ALT Alkaline Phosphatase Total Protein Albumin Vitamin B12 Serum Folate Urine Color Urine Appearance Urine pH Ur Specific [place] Urine Protein Urine Glucose (UA) Urine Ketones Urine Blood Urine Nitrite Urine Bilirubin Urine Urobilinogen Ur Leukocyte Esterase Urine RBC Urine WBC Ur Epithelial Cells Urine Mucus Stool Occult Blood Active Medications Generic Name Dose Route Start Last Admin Trade Name Freq PRN Reason Stop Dose Admin Aspirin 325 mg 07/06/16 08:00 07/07/16 09:35 Asa - PO 325 mg DAILY@0800 ODETTE Administration Docusate Sodium 100 mg 07/07/16 08:20 07/07/16 09:41 Colace - PO 100 mg DAILY PRN Administration CONSTIPATION Hydralazine HCl 25 mg 07/05/16 22:00 07/07/16 21:46 Apresoline - PO 25 mg BID ODETTE Administration Hydromorphone HCl 0.5 mg 07/05/16 18:01 07/07/16 21:54 Dilaudid Injection - IVPB 0.5 mg Q4H PRN Administration PAIN Metoprolol Succinate 50 mg 07/06/16 10:00 07/07/16 09:35 Toprol Xl - PO 50 mg DAILY ODETTE Administration Pantoprazole Sodium 20 mg 07/08/16 10:00 Protonix - PO DAILY ODETTE Polyethylene Glycol 17 gm 07/08/16 10:00 Miralax (For Daily Use) - PO DAILY ODETTE Psyllium Hydrophilic Mucilloid 5.85 gm 07/07/16 22:00 07/07/16 21:51 Metamucil (Sugar-Free) - PO 5.85 gm BID ODETTE Administration Senna 2 tab 07/07/16 22:00 07/07/16 21:46 Senna - PO 2 tab HS ODETTE Administration 07/08/2016 CT of right lower extremity: Impression: Status post right knee replacement. A right hip prosthesis was present on prior examination. There is extensive soft tissue swelling and air around the mid and distal femoral shaft as well as around the knee joint without gross evidence of a discrete collection. However, beam hardening artifacts from the metallic hardware are limiting this exam. Correlating to to determine further evaluation and follow- up. Minimally displaced fracture of the right inferior pubic ramus at its junction with the ischial bone and questionable nondisplaced fracture of the left inferior pubic ramus, as well. ASSESSMENT/PLAN: Patient is a 89 year old female with past medical history of CKD (cr 1.5-1.9), HTN, CHF, Thalassemia Trait presented to the ED s/p mechanical fall was found to have Right Distal femoral fracture # Right Distal comminuted and displaced femoral fracture s/p mechanical fall "POD 2" Right distal femur replacement Patient did well after surgery. Vitals are stable. However, H/H dropped today from 8.3---> 6.5. on 07/06/16. 2PRBC was transfused on 07/06/16. Today's H/ H is 8.9/27.2 Admitted in Med-Surg IV Dilaudid discontinued and added Oxycodone and Tylenol Bed rest Fall precautions. Incentive Spirometry On aspirin 325mg Daily. Dr. Renteria Consult appreciated. CT scan of right lower extremity ordered r/o any hematoma. Report as above. # Anemia of chronic diease H/H : 8.3/----> 6.5/20.2------>2PRBC 07/06/16--->9.1/27.9 --->8.9/27.2 During surgery, patient had negligible amount of blood loss. Iron profile suggestive of anemia of chronic disease. Anemia could also be because of CKD. H/o Thalassemia Trait Stool for occult blood ordered # Hypertension-stable Resume Toprol XL 50mg Po Daily after surgery Resume Hydralazine 25mg PO BID # CKD baseline 1.5-1.9 Trend Cr 1.8 Avoid nephrotoxins. Gentle hydration # Diastolic dysfunction with murmur of aortic stenosis Lasix 20mg is on home medication list but just confirmed with the pharmacy ( [facility]), she takes only hydralazine. Continue Hydralazine and Metoprolol 50mg Daily as per cardiology ECHO Done on 07/05/16: Left ventricular systolic function is mild-moderately reduced. Moderate mitral annular calcification. Left atrium is mildly dilated. Trace to mild mR. Moderate TR. May need aortic valve replacement (TAVR preferred), as per cardiology # FEN IV Fluids stopped today. Electrolytes to be repeated tomorrow. Sodium controlled diet and Ensure. # Prophylaxis For DVT: SCDs on the left leg. For GI: Not indicated Disposition: Admit to Med-surg. Possible discharge tomorrow morning. Spoke with patients daughter Ms. Shawn Bullard ([phone]) over the phone today. Reported to her there is a possible of discharging the patient to the rehab. bench worker is on board and is trying to get paper works ready. Case discussed with Dr. Gonzalez. Visit type - Emergency Visit Emergency Visit: Yes ED Registration Date: 07/02/16 Care time: The patient presented to the Emergency Department on the above date and was hospitalized for further evaluation of their emergent condition. - New Patient This patient is new to me today: No - Critical Care Critical Care patient: No - Discharge Referral Referred to [facility] No
[2016-07-08] MEDS: PSYLLIUM 5.85 GM PACKET PO SCH ×2 (10:22→21:45)
[2016-07-08] MEDS: POLYETHYLENE GLYCOL 3350 119 GM BTL PO SCH (10:22)
--- NOTE | 2016-07-08 10:23 | PN ---
Progress Note (short form) - Note Progress Note: Pt seen, feels good, min c/o pain. AVSS H/H stable RLE Grossly NVI Dressing CDI Good ROM at right knee, ankle, foot, toes Imp Doing well. Rec P.T., PWB RLE DC planning
[2016-07-08] MEDS: METOPROLOL SUCCINATE 50 MG TAB.SR.24H (FP) PO SCH (10:25)
[2016-07-08] MEDS: hydrALAZINE HCL 25 MG TABLET (FP) PO SCH ×2 (10:25→21:45)
[2016-07-08] MEDS: ASPIRIN 325 MG TABLET PO SCH (10:25)
[2016-07-08] MEDS: PANTOPRAZOLE 20 MG TABLET (FP) PO SCH (10:25)
--- NOTE | 2016-07-08 10:33 | PN ---
Progress Note (short form) - Note Progress Note: Resting in NAD. No CP or SOB. No acute events overnight. Intake & Output 07/05/16 07/06/16 07/07/16 07/08/16 23:59 23:59 23:59 23:59 Intake Total 1950 1830 1873 50 Output Total 800 450 Balance 1150 1380 1873 50 Last Vital Signs Temp Pulse Resp BP Pulse Ox 98.2 F 78 20 142/78 95 07/08/16 05:42 07/08/16 05:42 07/08/16 05:42 07/08/16 05:42 07/07/16 21:00 Active Medications Aspirin (Asa -) 325 mg PO DAILY@0800 [facility] Last Admin: 07/08/16 10:25 Dose: 325 mg Docusate Sodium (Colace -) 100 mg PO DAILY PRN PRN Reason: CONSTIPATION Last Admin: 07/07/16 09:41 Dose: 100 mg Hydralazine HCl (Apresoline -) 25 mg PO BID [facility] Last Admin: 07/08/16 10:25 Dose: 25 mg Hydromorphone HCl (Dilaudid Injection -) 0.5 mg IVPB Q4H PRN PRN Reason: PAIN Last Admin: 07/07/16 21:54 Dose: 0.5 mg Metoprolol Succinate (Toprol Xl -) 50 mg PO DAILY [facility] Last Admin: 07/08/16 10:25 Dose: 50 mg Pantoprazole Sodium (Protonix -) 20 mg PO DAILY [facility] Last Admin: 07/08/16 10:25 Dose: 20 mg Polyethylene Glycol (Miralax (For Daily Use) -) 17 gm PO DAILY [facility] Last Admin: 07/08/16 10:22 Dose: 17 gm Psyllium Hydrophilic Mucilloid (Metamucil (Sugar-Free) -) 5.85 gm PO BID [facility] Last Admin: 07/08/16 10:22 Dose: 5.85 gm Senna (Senna -) 2 tab PO HS [facility] Last Admin: 07/07/16 21:46 Dose: 2 tab Constitutional: Yes: NAD Eyes: Yes: EOM Intact HENT: Yes: Normocephalic Neck: Yes: Trachea Midline Cardiovascular: Yes: S1, S2 Respiratory: Yes: Diminished Gastrointestinal: Yes: Normal Bowel Sounds Extremities: Yes: Post operative changes Neurological: Yes: Oriented Psychiatric: Yes: Alert Labs: Laboratory Results - last 24 hr 07/02/16 07/07/16 07/07/16 18:00 06:20 06:20 WBC RBC Hgb Hct MCV MCHC RDW Plt Count MPV Sodium Potassium Chloride Carbon Dioxide Anion Gap BUN Creatinine Random Glucose Calcium Iron 16 L TIBC 193 L Iron Saturation 8 L Vitamin B12 693 Serum Folate 20 H Urine Color Urine Appearance Urine pH Ur Specific [place] Urine Protein Urine Glucose (UA) Urine Ketones Urine Blood Urine Nitrite Urine Bilirubin Urine Urobilinogen Ur Leukocyte Esterase Urine RBC Urine WBC Ur Epithelial Cells Urine Mucus Stool Occult Blood Blood Type O POSITIVE Antibody Screen Negative Crossmatch See Detail 07/07/16 07/07/16 07/07/16 15:00 18:55 19:00 WBC 14.0 H RBC 3.59 L Hgb 8.7 L Hct 27.2 L MCV 75.6 L MCHC 32.1 RDW 18.5 H Plt Count 194 MPV 9.7 Sodium Potassium Chloride Carbon Dioxide Anion Gap BUN Creatinine Random Glucose Calcium Iron TIBC Iron Saturation Vitamin B12 Serum Folate Urine Color Ltyellow Urine Appearance Clear Urine pH 5.0 Ur Specific [place] 1.010 Urine Protein 1+ H Urine Glucose (UA) Negative Urine Ketones Negative Urine Blood 2+ H Urine Nitrite Negative Urine Bilirubin Negative Urine Urobilinogen Negative Ur Leukocyte Esterase 1+ H D Urine RBC 2 Urine WBC 12 Ur Epithelial Cells Rare Urine Mucus Rare Stool Occult Blood Negative Blood Type Antibody Screen Crossmatch 07/08/16 06:10 WBC RBC Hgb Hct MCV MCHC RDW Plt Count MPV Sodium 140 Potassium 4.1 Chloride 106 Carbon Dioxide 20 L Anion Gap 14 BUN 32 H Creatinine 1.5 H Random Glucose 97 D Calcium 7.3 L Iron TIBC Iron Saturation Vitamin B12 Serum Folate Urine Color Urine Appearance Urine pH Ur Specific [place] Urine Protein Urine Glucose (UA) Urine Ketones Urine Blood Urine Nitrite Urine Bilirubin Urine Urobilinogen Ur Leukocyte Esterase Urine RBC Urine WBC Ur Epithelial Cells Urine Mucus Stool Occult Blood Blood Type Antibody Screen Crossmatch Problem List - Problems (1) [id number] kidney injury Code(s): N17.9 - ACUTE KIDNEY FAILURE, UNSPECIFIED N18.9 - CHRONIC KIDNEY DISEASE, UNSPECIFIED (2) Anemia Code(s): D64.9 - ANEMIA, UNSPECIFIED Qualifiers: Iron deficiency anemia type: chronic blood loss (3) Diastolic dysfunction without heart failure Code(s): I51.9 - HEART DISEASE, UNSPECIFIED (4) Femur fracture, right Code(s): S72.91XA - UNSP FRACTURE OF RIGHT FEMUR, INIT FOR CLOS FX Qualifiers : Encounter type: initial encounter Femur location: unspecified portion of femur Fracture type: closed Fracture morphology: other fracture Qualified Code(s): S72.8X1A - Other fracture of right femur, initial encounter for closed fracture (5) HTN (hypertension) Code(s): I10 - ESSENTIAL (PRIMARY) HYPERTENSION Qualifiers: Hypertension type: essential hypertension Qualified Code(s): I10 - Essential (primary) hypertension Assessment/Plan VTE prophylaxis O2 as needed Incentive Spirometry PT D/C planning Dr Wu
[2016-07-08] MEDS ORDERED: oxyCODONE HCL 5 MG TABLET PO PRN (10:35)
[2016-07-08] MEDS ORDERED: ACETAMINOPHEN 325 MG TABLET (FP) PO PRN (10:37)
[2016-07-08] MEDS ORDERED: HYDROmorphone HCL CARPU-JECT 1 MG/1 ML DISP.SYRIN IVPB PRN (10:37)
[2016-07-08 11:39] LABS: MCH 24.8 pg (25.7-33.7); MCHC 32.7 g/dl (32.0-36.0); MEAN CELL VOLUME 75.9 fl (80-96); MEAN PLT VOLUME 9.3 fl (7.5-11.1); PLATELET COUNT 189 K/MM3 (134-434); RDW 18.6 % (11.6-15.6); WHITE BLOOD COUNT 14.2 K/mm3 (4.0-10.0)
--- NOTE | 2016-07-08 13:54 | PN ---
Teaching Attending Note Name of Resident: Cynthia Hardin ATTENDING PHYSICIAN STATEMENT I saw and evaluated the patient. I reviewed the resident's note and discussed the case with the resident. I agree with the resident's findings and plan as documented. SUBJECTIVE: minimal pain in R knee, has no fever or chills, has no dysuria or SOB or cough OBJECTIVE: NAD , awake and alert oriented x3 . HEENT: MMM, no facial droop. CV: RRR, 3/6 SM heard at base and LLSB and apex ( best heard at LLSB ) . lungs : CTAB Ext : RLE , with a surgical dressing on anterior knee , with edema , erythema on Lower thigh , knee and upper leg. bruising on lateral knee DP 2+ b/l nl feet sensation and can armature inspector toes and ankles ASSESSMENT AND PLAN: 89 y/o lady with h/o thalassemia trait , CKD , Chronic systolic CHF , diverticulosis , and who presented with R LE paina fter a mechanical fall, was found to have R comminuted distal femoral fx and proximal tibial Fx . Now s/ p ORIF 1- Mechanical fall s/p R comminuted distal femoral fx and proximal tibial Fx . Now s/p ORIF. pain is controlled - dc dilaudid and start tylenol and oxycodone - CT scan with no hematoma . findings of pubic ramus Fx - bowel regimen - ASA for DVT px 2- Chronic microcytic anemia with acute drop in Hb, after sx. multifactorial, due to thalassemia trait, surgical loss, and blood draws . no evidence fo GI bleed or bleed at surgical site - iron studies don't indicate anemia of chronic disease -repeat stool OB - rest as out pt 3- CKD : Cr at base line 4- : f/u as out pt Medically ready for dc , pending bed availability
--- NOTE | 2016-07-08 14:52 | PN ---
Progress Note, Physician History of Present Illness: s/p right distal femur replacement stable She denies chest pain, dyspnea, near or true syncope, orthopnea, PND, palpitations, or LE edema. - Current Medication List Current Medications: Active Medications Acetaminophen (Tylenol -) 650 mg PO Q6H PRN PRN Reason: FEVER OR PAIN Aspirin (Asa -) 325 mg PO DAILY@0800 [facility] Last Admin: 07/08/16 10:25 Dose: 325 mg Docusate Sodium (Colace -) 100 mg PO DAILY PRN PRN Reason: CONSTIPATION Last Admin: 07/07/16 09:41 Dose: 100 mg Hydralazine HCl (Apresoline -) 25 mg PO BID [facility] Last Admin: 07/08/16 10:25 Dose: 25 mg Metoprolol Succinate (Toprol Xl -) 50 mg PO DAILY [facility] Last Admin: 07/08/16 10:25 Dose: 50 mg Oxycodone HCl (Roxicodone -) 5 mg PO Q4H PRN PRN Reason: PAIN Pantoprazole Sodium (Protonix -) 20 mg PO DAILY [facility] Last Admin: 07/08/16 10:25 Dose: 20 mg Polyethylene Glycol (Miralax (For Daily Use) -) 17 gm PO DAILY [facility] Last Admin: 07/08/16 10:22 Dose: 17 gm Psyllium Hydrophilic Mucilloid (Metamucil (Sugar-Free) -) 5.85 gm PO BID [facility] Last Admin: 07/08/16 10:22 Dose: 5.85 gm Senna (Senna -) 2 tab PO HS [facility] Last Admin: 07/07/16 21:46 Dose: 2 tab - Objective Vital Signs: Vital Signs Temperature 98.1 F 07/08/16 14:00 Pulse Rate 74 07/08/16 14:00 Respiratory Rate 18 07/08/16 14:00 Blood Pressure 126/68 07/08/16 14:00 O2 Sat by Pulse Oximetry (%) 95 07/07/16 21:00 Constitutional: Yes: No Distress, Calm Neck: Yes: Supple Cardiovascular: Yes: Regular Rate and Rhythm, Murmur (2/6 SM) Respiratory: Yes: Regular, Diminished Gastrointestinal: Yes: Normal Bowel Sounds, Soft Edema: No Labs: CBC, BMP 07/08/16 06:10 07/08/16 06:10 INR, PTT INR 1.10 (0.82-1.09) 07/03/16 06:00 Problem List - Problems (1) Femur fracture, right Code(s): S72.91XA - UNSP FRACTURE OF RIGHT FEMUR, INIT FOR CLOS FX Qualifiers : Encounter type: initial encounter Femur location: unspecified portion of femur Fracture type: closed Fracture morphology: other fracture Qualified Code(s): S72.8X1A - Other fracture of right femur, initial encounter for closed fracture (2) Hypertensive cardiomegaly without heart failure Code(s): I11.9 - HYPERTENSIVE HEART DISEASE WITHOUT HEART FAILURE (3) Diastolic dysfunction without heart failure Code(s): I51.9 - HEART DISEASE, UNSPECIFIED (4) Senile calcific aortic valve sclerosis Code(s): I35.0 - NONRHEUMATIC AORTIC (VALVE) STENOSIS (5) [id number] kidney injury Code(s): N17.9 - ACUTE KIDNEY FAILURE, UNSPECIFIED N18.9 - CHRONIC KIDNEY DISEASE, UNSPECIFIED (6) Anemia Code(s): D64.9 - ANEMIA, UNSPECIFIED Qualifiers: Iron deficiency anemia type: chronic blood loss (7) Abnormal LFTs Code(s): R79.89 - OTHER SPECIFIED ABNORMAL FINDINGS OF BLOOD CHEMISTRY Assessment/Plan 1. Post mechanical fall with right displaced distal femur, lateral tibial plateau fracture - post surgery 2. Acute on CKD (pre-renal) resolving 3. Diastolic dysfunction with mod-severe aortic stenosis 4. Microcytic anemia - stable post transfusion 5. Abnormal LFTs improving PLAN: 1. Continue Toprol XL 50 qd and Hydralazine 25 bid as tolerated 2. Echocardiography reveals moderate to severe aortic valve stenosis. Will need to compare with office echocardiography from the past. At some point, patient may need aortic valve replacement (TAVR preferred) 3. Physical therapy and eventual rehab 4. DVT and GI prophylaxis
--- NOTE | 2016-07-08 17:19 | PN ---
Progress Note, Physician History of Present Illness: Pt seen and examined at bedside. She is awake and alert. - Current Medication List Current Medications: Active Medications Acetaminophen (Tylenol -) 650 mg PO Q6H PRN PRN Reason: FEVER OR PAIN Last Admin: 07/08/16 15:28 Dose: 650 mg Aspirin (Asa -) 81 mg PO DAILY@0800 [facility] Docusate Sodium (Colace -) 100 mg PO DAILY PRN PRN Reason: CONSTIPATION Last Admin: 07/07/16 09:41 Dose: 100 mg Heparin Sodium (Porcine) (Heparin -) 5,000 unit SQ BID [facility] Hydralazine HCl (Apresoline -) 25 mg PO BID [facility] Last Admin: 07/08/16 10:25 Dose: 25 mg Metoprolol Succinate (Toprol Xl -) 50 mg PO DAILY [facility] Last Admin: 07/08/16 10:25 Dose: 50 mg Oxycodone HCl (Roxicodone -) 5 mg PO Q4H PRN PRN Reason: PAIN Last Admin: 07/08/16 15:27 Dose: 5 mg Pantoprazole Sodium (Protonix -) 20 mg PO DAILY [facility] Last Admin: 07/08/16 10:25 Dose: 20 mg Polyethylene Glycol (Miralax (For Daily Use) -) 17 gm PO DAILY [facility] Last Admin: 07/08/16 10:22 Dose: 17 gm Psyllium Hydrophilic Mucilloid (Metamucil (Sugar-Free) -) 5.85 gm PO BID [facility] Last Admin: 07/08/16 10:22 Dose: 5.85 gm Senna (Senna -) 2 tab PO HS [facility] Last Admin: 07/07/16 21:46 Dose: 2 tab - Objective Vital Signs: Vital Signs Temperature 98.1 F 07/08/16 14:00 Pulse Rate 74 07/08/16 14:00 Respiratory Rate 18 07/08/16 14:00 Blood Pressure 126/68 07/08/16 14:00 O2 Sat by Pulse Oximetry (%) 95 07/07/16 21:00 Constitutional: Yes: Calm Eyes: Yes: Conjunctiva Clear HENT: Yes: Atraumatic Neck: Yes: Supple Cardiovascular: Yes: S1, S2 Respiratory: Yes: CTA Bilaterally Gastrointestinal: Yes: Normal Bowel Sounds, Soft Genitourinary: Yes: WNL Musculoskeletal: Yes: Other (right leg pain) Edema: RLE: 1+ Neurological: Yes: Oriented Psychiatric: Yes: Oriented Labs: CBC, BMP 07/08/16 06:10 07/08/16 06:10 INR, PTT INR 1.10 (0.82-1.09) 07/03/16 06:00 Problem List - Problems (1) Nhcjs-yr-[id number] kidney injury Code(s): N17.9 - ACUTE KIDNEY FAILURE, UNSPECIFIED N18.9 - CHRONIC KIDNEY DISEASE, UNSPECIFIED (2) Diastolic dysfunction without heart failure Code(s): I51.9 - HEART DISEASE, UNSPECIFIED (3) Femur fracture, right Code(s): S72.91XA - UNSP FRACTURE OF RIGHT FEMUR, INIT FOR CLOS FX Qualifiers : Encounter type: initial encounter Femur location: unspecified portion of femur Fracture type: closed Fracture morphology: other fracture Qualified Code(s): S72.8X1A - Other fracture of right femur, initial encounter for closed fracture Assessment/Plan Current Medications Generic Name Dose Route Start Last Admin Trade Name Freq PRN Reason Stop Dose Admin Acetaminophen 650 mg 07/08/16 10:37 07/08/16 15:28 Tylenol - PO 650 mg Q6H PRN Administration FEVER OR PAIN Aspirin 81 mg 07/09/16 08:00 Asa - PO DAILY@0800 [facility] Docusate Sodium 100 mg 07/07/16 08:20 07/07/16 09:41 Colace - PO 100 mg DAILY PRN Administration CONSTIPATION Heparin Sodium (Porcine) 5,000 unit 07/08/16 22:00 Heparin - SQ BID [facility] Hydralazine HCl 25 mg 07/05/16 22:00 07/08/16 10:25 Apresoline - PO 25 mg BID [facility] Administration Metoprolol Succinate 50 mg 07/06/16 10:00 07/08/16 10:25 Toprol Xl - PO 50 mg DAILY [facility] Administration Oxycodone HCl 5 mg 07/08/16 10:35 07/08/16 15:27 Roxicodone - PO 5 mg Q4H PRN Administration PAIN Pantoprazole Sodium 20 mg 07/08/16 10:00 07/08/16 10:25 Protonix - PO 20 mg DAILY [facility] Administration Polyethylene Glycol 17 gm 07/08/16 10:00 07/08/16 10:22 Miralax (For Daily Use) - PO 17 gm DAILY [facility] Administration Psyllium Hydrophilic Mucilloid 5.85 gm 07/07/16 22:00 07/08/16 10:22 Metamucil (Sugar-Free) - PO 5.85 gm BID [facility] Administration Senna 2 tab 07/07/16 22:00 07/07/16 21:46 Senna - PO 2 tab HS [facility] Administration Impression 1. CKD with acute component 2. HTN 3. H/O CHF - pt not in active failure 4. Right Femur fx following a mechanical fall 5. aortic stenosis 5. anemia 6. Microscopic Hematuria Plan - renal function is stabilized - will likely restart diuretics in next few days - fluids are stopped - outpt follow up with Dr Cano - encourage po intake - incentive spirometer - will need repeat ua to follow up microscopic hematuria - will follow Dr Bush
--- NOTE | 2016-07-08 21:17 | PN ---
Progress Note (short form) - Note Progress Note: GASTROENTEROLOGY HISTORY OF THALASSEMIA S/P ORTHOPEDIC SURGERY IRON STUDIES INDICATE IRON DEF STOOL OB - PLAN: WOULD PLACE ON IRON THERAPY, WITH COLACE 300 MG QHS/MIRALAX Q DAY/HIGH FIBER DIET GI EVALUATION OUTPATIENT POSSIBLE EROSIONS IN LARGE HIATAL HERNIA KEEP ON PPi SPOKE WITH PATIENT MABEL FERNANDEZ MD Problem List - Problems (1) Anemia Code(s): D64.9 - ANEMIA, UNSPECIFIED Qualifiers: Iron deficiency anemia type: chronic blood loss (2) Femur fracture, right Code(s): S72.91XA - UNSP FRACTURE OF RIGHT FEMUR, INIT FOR CLOS FX Qualifiers : Encounter type: initial encounter Femur location: unspecified portion of femur Fracture type: closed Fracture morphology: other fracture Qualified Code(s): S72.8X1A - Other fracture of right femur, initial encounter for closed fracture (3) Diverticulosis large intestine w/o perforation or abscess w/o bleeding Code(s): K57.30 - DVRTCLOS OF LG INT W/O PERFORATION OR ABSCESS W/O BLEEDING
[2016-07-08] MEDS: HEPARIN NA (PORCINE) 5,000 UNITS/ML 1ML VIAL SQ SCH (21:45)
[2016-07-08] MEDS: SENNOSIDES 8.6MG TABLET (FP) PO SCH (21:45)
[2016-07-09 07:28] LABS: MCH 24.6 pg (25.7-33.7); MCHC 32.6 g/dl (32.0-36.0); MEAN CELL VOLUME 75.4 fl (80-96); MEAN PLT VOLUME 8.8 fl (7.5-11.1); PLATELET COUNT 215 K/MM3 (134-434); RDW 18.7 % (11.6-15.6); WHITE BLOOD COUNT 12.8 K/mm3 (4.0-10.0)
[2016-07-09] MEDS ORDERED: ASPIRIN 81 MG CHEWABLE TABLETS PO SCH (08:00)
[2016-07-09 08:21] LABS: BILIRUBIN,TOTAL 1.2 mg/dL (0.2-1.0); CALCIUM 7.5 mg/dL (8.5-10.1); COCKROFT - GAULT 26.1715; CREATININE 1.5 mg/dL (0.55-1.02); TOT PROT 4.7 g/dl (6.4-8.2)
--- NOTE | 2016-07-09 09:23 | PN ---
Addendum entered and electronically signed by Simon Rudolph PA 07/09/16 09:30: WBAT Original Note: Progress Note (short form) - Note Progress Note: Ortho Pt seen and examined s/p right distal femur replacement pod #4 dressing c/d/i, calf soft, nt rom 0-30, nvi a/p PT dvt ppx pain control d/c to snf today f/u in the office in 10-14 days
[2016-07-09 09:59] LABS: METAMYELOCYTE 1 % (0-2)
[2016-07-09 10:00] LABS: PLATELET ESTIMATE ADEQUATE (NORMAL)
[2016-07-09] MEDS: METOPROLOL SUCCINATE 50 MG TAB.SR.24H (FP) PO SCH (10:26)
[2016-07-09] MEDS: PANTOPRAZOLE 20 MG TABLET (FP) PO SCH (10:26)
[2016-07-09] MEDS: hydrALAZINE HCL 25 MG TABLET (FP) PO SCH (10:26)
[2016-07-09] MEDS: HEPARIN NA (PORCINE) 5,000 UNITS/ML 1ML VIAL SQ SCH (10:26)
[2016-07-09] MEDS: PSYLLIUM 5.85 GM PACKET PO SCH (10:27)
[2016-07-09] MEDS: POLYETHYLENE GLYCOL 3350 119 GM BTL PO SCH (10:27)
--- NOTE | 2016-07-09 13:42 | PN ---
Progress Note (short form) - Note Progress Note: S: 89 year old female, history of hypertension, chronic kidney disease, CHF, traumatic fracture of the distal femur and underwent surgery. Patient is scheduled for transfer to a assisted facility. No history of chest pain or discomfort, no dyspnea, PND or orthopnea. Active Medications Generic Name Dose Route Start Last Admin Trade Name Freq PRN Reason Stop Dose Admin Acetaminophen 650 mg 07/08/16 10:37 07/08/16 15:28 Tylenol - PO 650 mg Q6H PRN Administration FEVER OR PAIN Aspirin 81 mg 07/09/16 08:00 07/09/16 08:42 Asa - PO 81 mg DAILY@0800 [facility] Administration Docusate Sodium 100 mg 07/07/16 08:20 07/07/16 09:41 Colace - PO 100 mg DAILY PRN Administration CONSTIPATION Heparin Sodium (Porcine) 5,000 unit 07/08/16 22:00 07/09/16 10:26 Heparin - SQ 5,000 unit BID [facility] Administration Hydralazine HCl 25 mg 07/05/16 22:00 07/09/16 10:26 Apresoline - PO 25 mg BID [facility] Administration Metoprolol Succinate 50 mg 07/06/16 10:00 07/09/16 10:26 Toprol Xl - PO 50 mg DAILY [facility] Administration Oxycodone HCl 5 mg 07/08/16 10:35 07/08/16 15:27 Roxicodone - PO 5 mg Q4H PRN Administration PAIN Pantoprazole Sodium 20 mg 07/08/16 10:00 07/09/16 10:26 Protonix - PO 20 mg DAILY [facility] Administration Polyethylene Glycol 17 gm 07/08/16 10:00 07/09/16 10:27 Miralax (For Daily Use) - PO 17 gm DAILY [facility] Administration Psyllium Hydrophilic Mucilloid 5.85 gm 07/07/16 22:00 07/09/16 10:27 Metamucil (Sugar-Free) - PO 5.85 gm BID [facility] Administration Senna 2 tab 07/07/16 22:00 07/08/16 21:45 Senna - PO 2 tab HS [facility] Administration O: 89 year old female was in no acute distress, no pallor, cyanosis, clubbing, or jaundice. Last Vital Signs Temp Pulse Resp BP Pulse Ox 98.4 F 75 18 142/68 93 L 07/09/16 08:21 07/09/16 08:21 07/09/16 08:21 07/09/16 08:21 07/09/16 09:00 Neck: Supple, no JVD, negative HJR, carotids were equal and upstrokes were normal, no thyromegaly appreciated. Heart: PMI was in the 5th intercostal space, no heaves or thrills, S1 and S2 were normal. Ejection systolic murmur grade II/. No gallops were appreciated. Lungs: Clear on auscultation bilaterally. Abdomen: Soft, nontender, no hepatosplenomegaly appreciated, and no palpable masses were felt. Extremities: Right lower extremity 2+ dependent edema, no calf tenderness was elicited. CBC, BMP 07/09/16 06:50 07/09/16 06:50 Laboratory Results - last 24 hr 07/09/16 07/09/16 06:50 06:50 WBC 12.8 H RBC 3.55 L Hgb 8.7 L Hct 26.8 L MCV 75.4 L MCHC 32.6 RDW 18.7 H Plt Count 215 MPV 8.8 Neutrophils % 82.0 Lymphocytes % 8.0 Monocytes % 4.0 Eosinophils % 2.0 D Metamyelocytes 1 Myelocytes 3 H Differential Comment Manual diff done Platelet Estimate Adequate Sodium 140 Potassium 3.9 Chloride 108 H Carbon Dioxide 22 Anion Gap 10 BUN 34 H Creatinine 1.5 H Creat Clearance w eGFR 32.77 Random Glucose 92 Calcium 7.5 L Total Bilirubin 1.2 H AST 22 D ALT 14 D Alkaline Phosphatase 79 Total Protein 4.7 L Albumin 2.0 L Impression: (1) HTN (hypertension), hypertensive cardiovascular disease Code(s): I10 - ESSENTIAL (PRIMARY) HYPERTENSION Qualifiers: Hypertension type: essential hypertension Qualified Code(s): I10 - Essential (primary) hypertension (2) Aortic stenosis Code(s): I35.0 - NONRHEUMATIC AORTIC (VALVE) STENOSIS Qualifiers: Cardiac valve disease etiology: nonrheumatic Qualified Code(s): I35.0 - Nonrheumatic aortic (valve) stenosis (3) Cewll-yk-ithuyck kidney injury Code(s): N17.9 - ACUTE KIDNEY FAILURE, UNSPECIFIED N18.9 - CHRONIC KIDNEY DISEASE, UNSPECIFIED (4) Anemia Code(s): D64.9 - ANEMIA, UNSPECIFIED Qualifiers: Iron deficiency anemia type: chronic blood loss (5) Diastolic dysfunction without heart failure Code(s): I51.9 - HEART DISEASE, UNSPECIFIED (6) Femur fracture, right Code(s): S72.91XA - UNSP FRACTURE OF RIGHT FEMUR, INIT FOR CLOS FX Qualifiers : Encounter type: initial encounter Femur location: unspecified portion of femur Fracture type: closed Fracture morphology: other fracture Qualified Code(s): S72.8X1A - Other fracture of right femur, initial encounter for closed fracture Recommendations: 1. Patient is scheduled for transfer to assisted facility. 2. Continue antihypertensive therapy. 3. Close follow up of hemoglobin / hematocrit. 4. Consider Iron therapy under close monitoring. Attestation: Documentation prepared by Agusto Gallegos, acting as director biomedical engineering for Neymar Goode MD.
[2016-07-09] MEDS ORDERED: NYSTATIN 500,000 UNITS/5 ML SUSPENSION PO ONE (14:41)
--- NOTE | 2016-07-09 14:50 | DS ---
Physical Exam: SUBJECTIVE: Patient seen and examined at bed side this morning. No complaints. Pain over the surgical site controlled with medication. Denies chest pain, sob, cough, palpitation, abdominal pain, nausea or vomiting. Bowel movement one episode yesterday, didn't contain any blood. OBJECTIVE: Vital Signs Period Temp Pulse Resp BP Sys/Ramírez Pulse Ox Last 24 Hr 97.5 F-98.7 F 72-91 18-20 136-146/66-84 93-96 PHYSICAL EXAM GENERAL: Elderly female, awake, alert, and fully oriented, in no acute distress. HEAD: Normal with no signs of trauma. EYES: EOM intact, no pallor or icterus. ENT: Ears normal. moist mucous membranes. NECK: Supple. LUNGS: Breath sounds equal, clear to auscultation bilaterally, no wheezes, no crackles, no accessory muscle use. HEART: Regular rate and rhythm, S1, S2 with systolic murmur, grade 2/6, left second intercoastal space. ABDOMEN: Soft, nontender, nondistended, normoactive bowel sounds, no guarding, no rebound, no hepatosplenomegaly, no masses. UPPER EXTREMITIES: 2+ pulses, warm, well-perfused, no edema. Right LOWER EXTREMITy: Bandage applied at the anterior right thigh, slightly swollen than the left, didn't open it. Can wiggle toes, peripheral pulses intact. Left Lower extremity: 2+ pulses, warm, well-perfused, no edema. NEUROLOGICAL: Cranial nerves II through XII grossly intact. Normal speech, gait not observed. PSYCH: Normal mood, normal affect. SKIN: Warm, dry, normal turgor, no rashes or lesions noted. LABS Laboratory Results - last 24 hr 07/09/16 07/09/16 06:50 06:50 WBC 12.8 H RBC 3.55 L Hgb 8.7 L Hct 26.8 L MCV 75.4 L MCHC 32.6 RDW 18.7 H Plt Count 215 MPV 8.8 Neutrophils % 82.0 Lymphocytes % 8.0 Monocytes % 4.0 Eosinophils % 2.0 D Metamyelocytes 1 Myelocytes 3 H Differential Comment Manual diff done Platelet Estimate Adequate Sodium 140 Potassium 3.9 Chloride 108 H Carbon Dioxide 22 Anion Gap 10 BUN 34 H Creatinine 1.5 H Creat Clearance w eGFR 32.77 Random Glucose 92 Calcium 7.5 L Total Bilirubin 1.2 H AST 22 D ALT 14 D Alkaline Phosphatase 79 Total Protein 4.7 L Albumin 2.0 L 07/08/2016 CT of right lower extremity: Impression: Status post right knee replacement. A right hip prosthesis was present on prior examination. There is extensive soft tissue swelling and air around the mid and distal femoral shaft as well as around the knee joint without gross evidence of a discrete collection. However, beam hardening artifacts from the metallic hardware are limiting this exam. Correlating to to determine further evaluation and follow- up. Minimally displaced fracture of the right inferior pubic ramus at its junction with the ischial bone and questionable nondisplaced fracture of the left inferior pubic ramus, as well. HOSPITAL COURSE: Date of Admission:07/02/16 Date of Discharge: 07/09/16 Patient is a 89 year old female with past medical history of CKD (cr 1.5-1.9), HTN, CHF, Thalassemia Trait presented to the ED s/p mechanical fall was found to have Right Distal femoral fracture. Admitted for Right distal Femur replacement. Patient had a mechanical fall at home. Had a Right Distal comminuted and displaced femoral fracture underwent Right distal femur replacement on 2016. Surgery was successful. Absorbable stitches were applied, had negligible bleeding during surgery. Pain was controlled with Dilaudid which was later controlled with Tylenol and Oxycodone. Fall precautions; Incentive spirometry. Was on Aspirin 325mg Daily. The next day H/H dropped today from 8.3---> 6.5. on 07/06/16. 2PRBC was transfused on 07/06/16. She responded well and there were no transfusion reactions. Patients right leg looked more swollen than the left. Hence CT scan of right lower extremity was done to r/o any hematoma. Report as above. Anemia of chronic diease: most likely due to chronic kidney disease. Also has a h/o Thalassemia trait. Was never on Iron therapy. Her ferritin is normal, hence do not think Iron therapy would be beneficial for her. Stool for occult blood was negative, had no hematuria hence other causes of anemia were ruled out. Hypertension-stable Resumed Toprol XL 50mg Po and Hydralazine 25mg PO BID .Daily after surgery and to continue Toprol Xl 50mg and Hydralazine 50mg BID to be continued. Resume Diastolic dysfunction with murmur of aortic stenosis. ECHO Done on 07/05/16 showed Left ventricular systolic function is mild-moderately reduced. Moderate mitral annular calcification. Left atrium is mildly dilated. Trace to mild mR. Moderate TR. Continue Lasix 20mg every alternate day (home medication) after a week. May need aortic valve replacement (TAVR preferred), as per cardiology. [facility], would encourage physical therapy, weight bearing exercises as tolerated. Spoke with patients daughter Ms. Shawn Bullard on 07/08/16 ([phone]) over the phone today. Discussed in depth about the medical condition of the patient and plan of care after discharge. She verbalized understanding. Patient has been explained to follow up with primary care physician in a week, Dr. Renteria in 2 weeks, Dr. Pepe in a month and Dr. Cuello. Also added Pantoprazole 40mg Daily upon discharge. Case discussed with Dr. Gonzalez. 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 You had a right distal femur replacement. Surgery was successful. The stitches you have in the right thigh is absorbable and the bandage applied is water resistant for 2 weeks so you can shower with it. We are sending you for subacute rehabilitation. Please follow up with Dr. Renteria (Orthopedic surgeon) in 10-14 days. F/up with Dr. Ilan Crespo (Renal) for chronic kidney disease. F/up with Dr. Cuello ( [facility]) as you may require aortic valve replacement. follow up with Dr. York ( GI ) If you need any medical records or any information please contact us. Return to the Emergency Department if your symptoms get worse or if you develop any symptoms. DVT prophylaxis for 1 month,( fully ambulatory ) nystatin for your thrush for 14 days , if not resolved duration can be longer Referrals: Augustus Jason MD [Primary Care Provider] - Efren Coats MD [Staff Physician] - hCavez Renteria MD [Staff Physician] - 2 Weeks Himanshu Cuello MD [Staff Physician] - Trey Pepe MD [Staff Physician] - 1 Month Disposition: [facility] - Home Medications Comprehensive Discharge Medication List: Ambulatory Orders Hydralazine HCl 50 mg PO BID 05/25/13 Metoprolol Succinate [Toprol XL -] 25 mg PO DAILY 07/02/16 Acetaminophen [Tylenol Extra Strength] 500 mg PO Q8H PRN #30 tablet 07/09/16 Aspirin Coated [Ecotrin -] 81 mg PO DAILY #30 tablet.ec 07/09/16 Nystatin 15 gm TP BID #1 powder 07/09/16 Nystatin Oral Suspension - [Nystatin Oral Susp 547632 Units/5 ML -] 5 ml PO BID #7 lozenge 07/09/16 Oxycodone HCl 2.5 mg PO Q8H PRN #30 tablet MDD 3 tablets 07/09/16 Furosemide [Lasix -] 20 mg PO DAILY #30 tablet 07/16/16 - Discharge Referral [facility]erred to [facility] No
--- NOTE | 2016-07-09 15:07 | PN ---
Teaching Attending Note Name of Resident: Cynthia Hardin ATTENDING PHYSICIAN STATEMENT I saw and evaluated the patient. I reviewed the resident's note and discussed the case with the resident. I agree with the resident's findings and plan as documented. SUBJECTIVE: no apin , nO SOB OBJECTIVE: NAD , awake and alert oriented x3 . HEENT: MMM, no facial droop. CV: RRR, 3/6 SM heard at base and LLSB and apex ( best heard at LLSB ) . lungs : CTAB Ext : RLE , with a surgical dressing on anterior knee , with edema , erythema on Lower thigh , knee and upper leg. 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 Now s/ p ORIF 1- Mechanical fall s/p R comminuted distal femoral fx and proximal tibial Fx . Now s/p ORIF. pain is controlled - DVT prophylaxis per ortho ( 325 mg of aspirin ) will give x 1 month until ambulatory - f/u with ortho as outpt 2- Chronic microcytic anemia with acute drop in Hb, after sx. multifactorial, due to thalassemia trait, surgical loss, and blood draws . no evidence fo GI bleed or bleed at surgical site -iron studies indicate anemia of chronic disease - PPI . 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
--- NOTE | 2016-07-09 15:23 | DS ---
Physical Exam: SUBJECTIVE: Patient seen and examined at bed side this morning. No complaints. Pain over the surgical site controlled with medication. Denies chest pain, sob, cough, palpitation, abdominal pain, nausea or vomiting. Bowel movement one episode yesterday, didn't contain any blood. OBJECTIVE: Vital Signs Period Temp Pulse Resp BP Sys/Ramírez Pulse Ox Last 24 Hr 97.5 F-98.7 F 72-91 18-20 136-146/66-84 93-96 PHYSICAL EXAM GENERAL: Elderly female, awake, alert, and fully oriented, in no acute distress. HEAD: Normal with no signs of trauma. EYES: EOM intact, no pallor or icterus. ENT: Ears normal. moist mucous membranes. NECK: Supple. LUNGS: Breath sounds equal, clear to auscultation bilaterally, no wheezes, no crackles, no accessory muscle use. HEART: Regular rate and rhythm, S1, S2 with systolic murmur, grade 2/6, left second intercoastal space. ABDOMEN: Soft, nontender, nondistended, normoactive bowel sounds, no guarding, no rebound, no hepatosplenomegaly, no masses. UPPER EXTREMITIES: 2+ pulses, warm, well-perfused, no edema. Right LOWER EXTREMITy: Bandage applied at the anterior right thigh, slightly swollen than the left, didn't open it. Can wiggle toes, peripheral pulses intact. Left Lower extremity: 2+ pulses, warm, well-perfused, no edema. NEUROLOGICAL: Cranial nerves II through XII grossly intact. Normal speech, gait not observed. PSYCH: Normal mood, normal affect. SKIN: Warm, dry, normal turgor, no rashes or lesions noted. LABS Laboratory Results - last 24 hr 07/06/16 07/09/16 07/09/16 09:30 06:50 06:50 WBC 12.8 H RBC 3.55 L Hgb 8.7 L Hct 26.8 L MCV 75.4 L MCHC 32.6 RDW 18.7 H Plt Count 215 MPV 8.8 Neutrophils % 82.0 Lymphocytes % 8.0 Monocytes % 4.0 Eosinophils % 2.0 D Metamyelocytes 1 Myelocytes 3 H Differential Comment Manual diff done Platelet Estimate Adequate Sodium 140 Potassium 3.9 Chloride 108 H Carbon Dioxide 22 Anion Gap 10 BUN 34 H Creatinine 1.5 H Creat Clearance w eGFR 32.77 Random Glucose 92 Calcium 7.5 L Total Bilirubin 1.2 H AST 22 D ALT 14 D Alkaline Phosphatase 79 Total Protein 4.7 L Albumin 2.0 L Blood Type O POSITIVE Antibody Screen Negative Crossmatch See Detail HOSPITAL COURSE: Date of Admission:07/02/16 Date of Discharge: 07/09/16 07/08/2016 CT of right lower extremity: Impression: Status post right knee replacement. A right hip prosthesis was present on prior examination. There is extensive soft tissue swelling and air around the mid and distal femoral shaft as well as around the knee joint without gross evidence of a discrete collection. However, beam hardening artifacts from the metallic hardware are limiting this exam. Correlating to to determine further evaluation and follow- up. Minimally displaced fracture of the right inferior pubic ramus at its junction with the ischial bone and questionable nondisplaced fracture of the left inferior pubic ramus, as well. HOSPITAL COURSE: Date of Admission:07/02/16 Date of Discharge: 07/09/16 Patient is a 89 year old female with past medical history of CKD (cr 1.5-1.9), HTN, CHF, Thalassemia Trait presented to the ED s/p mechanical fall was found to have Right Distal femoral fracture. Admitted for Right distal Femur replacement. Patient had a mechanical fall at home. Had a Right Distal comminuted and displaced femoral fracture underwent Right distal femur replacement on 2016. Surgery was successful. Absorbable stitches were applied, had negligible bleeding during surgery. Pain was controlled with Dilaudid which was later controlled with Tylenol and Oxycodone. Fall precautions; Incentive spirometry. Was on Aspirin 325mg Daily. The next day H/H dropped today from 8.3---> 6.5. on 07/06/16. 2PRBC was transfused on 07/06/16. She responded well and there were no transfusion reactions. Patients right leg looked more swollen than the left. Hence CT scan of right lower extremity was done to r/o any hematoma. Report as above. Anemia of chronic diease: most likely due to chronic kidney disease. Also has a h/o Thalassemia trait. Was never on Iron therapy. Her ferritin is normal, hence do not think Iron therapy would be beneficial for her. Stool for occult blood was negative, had no hematuria hence other causes of anemia were ruled out. Hypertension-stable Resumed Toprol XL 50mg Po and Hydralazine 25mg PO BID .Daily after surgery and to continue Toprol Xl 50mg and Hydralazine 50mg BID to be continued. Resume Diastolic dysfunction with murmur of aortic stenosis. ECHO Done on 07/05/16 showed Left ventricular systolic function is mild-moderately reduced. Moderate mitral annular calcification. Left atrium is mildly dilated. Trace to mild mR. Moderate TR. Continue Lasix 20mg every alternate day (home medication) after a week. May need aortic valve replacement (TAVR preferred), as per cardiology. Upon discharge to the half-way for rehabilitation, would encourage physical therapy, weight bearing exercises as tolerated. DVT prophylaxis ( 325 mg of aspirin ) until ambulatory. Spoke with patients daughter Ms. Shawn Bullard on 07/08/16 ([phone]) over the phone today. Discussed in depth about the medical condition of the patient and plan of care after discharge. She verbalized understanding. Patient has been explained to follow up with primary care physician in a week, Dr. Renteria in 2 weeks, Dr. Pepe in a month and Dr. Cuello. Also added Pantoprazole 40mg Daily upon discharge. Case discussed with Dr. Gonzalez. 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 You had a right distal femur replacement. Surgery was successful. The stitches you have in the right thigh is absorbable and the bandage applied is water resistant for 2 weeks so you can shower with it. We are sending you for subacute rehabilitation. Please follow up with Dr. Renteria (Orthopedic surgeon) in 10-14 days. F/up with Dr. Ilan Crespo (Renal) for chronic kidney disease. F/up with Dr. Cuello ( Keyboard Teacher) as you may require aortic valve replacement. follow up with Dr. York ( GI ) If you need any medical records or any information please contact us. Return to the Emergency Department if your symptoms get worse or if you develop any symptoms. DVT prophylaxis for 1 month,( fully ambulatory ) nystatin for your thrush for 14 days , if not resolved duration can be longer resume lasix 20 mg every other day after a week follow with your precision dancer as per your routine regarding thalassemia trait and anemia Referrals: Augustus Jason MD [Primary Care Provider] - Efren Coats MD [Staff Physician] - Chavez Renteria MD [Staff Physician] - 2 Weeks Himanshu Cuello MD [Staff Physician] - Trey Pepe MD [Staff Physician] - 1 Month Disposition: [facility] - Home Medications Comprehensive Discharge Medication List: Ambulatory Orders Hydralazine HCl 50 mg PO BID 05/25/13 Metoprolol Succinate [Toprol XL -] 25 mg PO DAILY 07/02/16 Acetaminophen [Tylenol Extra Strength] 500 mg PO Q8H PRN #30 tablet 07/09/16 Aspirin Coated [Ecotrin -] 325 mg PO DAILY #30 tablet. 07/09/16 Furosemide [Lasix] 20 mg PO Q48H #1 tablet 07/09/16 Nystatin 15 gm TP BID #1 powder 07/09/16 Nystatin Oral Suspension - [Nystatin Oral Susp 017636 Units/5 ML -] 5 ml PO BID #7 lozenge 07/09/16 Oxycodone HCl 2.5 mg PO Q8H PRN #30 tablet MDD 3 tablets 07/09/16 Pantoprazole Sodium [Protonix] 40 mg PO DAILY #1 tablet. 07/09/16 This patient is new to me today: Yes Date on this admission: 07/09/16 Emergency Visit: Yes ED Registration Date: 07/02/16 Care time: The patient presented to the Emergency Department on the above date and was hospitalized for further evaluation of their emergent condition. Critical Care patient: No - Discharge Referral Referred to [facility] No
--- NOTE | 2016-07-09 15:45 | PN ---
Progress Note, Physician History of Present Illness: Pt seen and examined at bedside. She is awake and appears comfortable. She denies shortness of breath. - Current Medication List Current Medications: Active Medications Acetaminophen (Tylenol -) 650 mg PO Q6H PRN PRN Reason: FEVER OR PAIN Last Admin: 07/08/16 15:28 Dose: 650 mg Aspirin (Asa -) 81 mg PO DAILY@0800 [facility] Last Admin: 07/09/16 08:42 Dose: 81 mg Docusate Sodium (Colace -) 100 mg PO DAILY PRN PRN Reason: CONSTIPATION Last Admin: 07/07/16 09:41 Dose: 100 mg Heparin Sodium (Porcine) (Heparin -) 5,000 unit SQ BID [facility] Last Admin: 07/09/16 10:26 Dose: 5,000 unit Hydralazine HCl (Apresoline -) 25 mg PO BID [facility] Last Admin: 07/09/16 10:26 Dose: 25 mg Metoprolol Succinate (Toprol Xl -) 50 mg PO DAILY [facility] Last Admin: 07/09/16 10:26 Dose: 50 mg Oxycodone HCl (Roxicodone -) 5 mg PO Q4H PRN PRN Reason: PAIN Last Admin: 07/08/16 15:27 Dose: 5 mg Pantoprazole Sodium (Protonix -) 20 mg PO DAILY [facility] Last Admin: 07/09/16 10:26 Dose: 20 mg Polyethylene Glycol (Miralax (For Daily Use) -) 17 gm PO DAILY [facility] Last Admin: 07/09/16 10:27 Dose: 17 gm Psyllium Hydrophilic Mucilloid (Metamucil (Sugar-Free) -) 5.85 gm PO BID [facility] Last Admin: 07/09/16 10:27 Dose: 5.85 gm Senna (Senna -) 2 tab PO HS [facility] Last Admin: 07/08/16 21:45 Dose: 2 tab - Objective Vital Signs: Vital Signs Temperature 98.4 F 07/09/16 12:00 Pulse Rate 70 07/09/16 12:00 Respiratory Rate 18 07/09/16 12:00 Blood Pressure 126/68 07/09/16 12:00 O2 Sat by Pulse Oximetry (%) 93 L 07/09/16 09:00 Constitutional: Yes: Calm Eyes: Yes: Conjunctiva Clear HENT: Yes: Atraumatic Neck: Yes: Supple Cardiovascular: Yes: S1, S2 Respiratory: Yes: CTA Bilaterally Gastrointestinal: Yes: Soft Musculoskeletal: Yes: Other (surgical dressing in place) Edema: Yes Edema: RLE: Trace Neurological: Yes: Oriented Psychiatric: Yes: Oriented Labs: CBC, BMP 07/09/16 06:50 07/09/16 06:50 INR, PTT INR 1.10 (0.82-1.09) 07/03/16 06:00 Problem List - Problems (1) Hohtd-zi-hpnzwgq kidney injury Code(s): N17.9 - ACUTE KIDNEY FAILURE, UNSPECIFIED N18.9 - CHRONIC KIDNEY DISEASE, UNSPECIFIED (2) Diastolic dysfunction without heart failure Code(s): I51.9 - HEART DISEASE, UNSPECIFIED (3) Femur fracture, right Code(s): S72.91XA - UNSP FRACTURE OF RIGHT FEMUR, INIT FOR CLOS FX Qualifiers : Encounter type: initial encounter Femur location: unspecified portion of femur Fracture type: closed Fracture morphology: other fracture Qualified Code(s): S72.8X1A - Other fracture of right femur, initial encounter for closed fracture Assessment/Plan Current Medications Generic Name Dose Route Start Last Admin Trade Name Freq PRN Reason Stop Dose Admin Acetaminophen 650 mg 07/08/16 10:37 07/08/16 15:28 Tylenol - PO 650 mg Q6H PRN Administration FEVER OR PAIN Aspirin 81 mg 07/09/16 08:00 07/09/16 08:42 Asa - PO 81 mg DAILY@0800 ODETTE Administration Docusate Sodium 100 mg 07/07/16 08:20 07/07/16 09:41 Colace - PO 100 mg DAILY PRN Administration CONSTIPATION Heparin Sodium (Porcine) 5,000 unit 07/08/16 22:00 07/09/16 10:26 Heparin - SQ 5,000 unit BID ODETTE Administration Hydralazine HCl 25 mg 07/05/16 22:00 07/09/16 10:26 Apresoline - PO 25 mg BID ODETTE Administration Metoprolol Succinate 50 mg 07/06/16 10:00 07/09/16 10:26 Toprol Xl - PO 50 mg DAILY ODETTE Administration Oxycodone HCl 5 mg 07/08/16 10:35 07/08/16 15:27 Roxicodone - PO 5 mg Q4H PRN Administration PAIN Pantoprazole Sodium 20 mg 07/08/16 10:00 07/09/16 10:26 Protonix - PO 20 mg DAILY ODETTE Administration Polyethylene Glycol 17 gm 07/08/16 10:00 07/09/16 10:27 Miralax (For Daily Use) - PO 17 gm DAILY ODETTE Administration Psyllium Hydrophilic Mucilloid 5.85 gm 07/07/16 22:00 07/09/16 10:27 Metamucil (Sugar-Free) - PO 5.85 gm BID ODETTE Administration Senna 2 tab 07/07/16 22:00 07/08/16 21:45 Senna - PO 2 tab HS ODETTE Administration Impression 1. CKD with acute component 2. HTN 3. H/O CHF - pt not in active failure 4. Right Femur fx following a mechanical fall 5. aortic stenosis 5. anemia 6. Microscopic Hematuria Plan - renal function is stable - she can resume home lasix at 20 mg every other day which is the dose she was taking. She can start it tomorrow. - will need follow up with Dr Cano - encourage po intake - incentive spirometer - will need repeat ua to follow up microscopic hematuria - plan discussed with pt and with daughter, they will arrange outpt follow up - will follow Dr Bush
[2016-07-09 15:51] VITALS: BP 125/57; PULSE 79; TEMP 98.5
== END 2016-07-09 16:29 | DRG 470 ==
LOC: JER 16:55 → JERBED 19:32 → UNDOADMIN 20:42 → JERBED 20:42 → J6S 07-03 00:21
PROVIDERS: ADMIT Internal Medicine; ATTEND Internal Medicine
PROC: 0SRC0J9 Replacement of Right Knee Joint with Synthetic Substitute, Cemented, Open Approach (ICD-10-PCS; principal; 2016-07-05 14:30)
PROC: 30233N1 Transfusion of Nonautologous Red Blood Cells into Peripheral Vein, Percutaneous Approach (ICD-10-PCS; 2016-07-06)
DX: S72.421A Displaced fracture of lateral condyle of right femur, initial encounter for closed fracture (principal); I13.0 Hypertensive heart and chronic kidney disease with heart failure and stage 1 through stage 4 chronic kidney disease, or unspecified chronic kidney disease; I50.22 Chronic systolic (congestive) heart failure; N17.9 Acute kidney failure, unspecified; W19.XXXA Unspecified fall, initial encounter; Y93.9 Activity, unspecified; Y92.89 Other specified places as the place of occurrence of the external cause; Y99.9 Unspecified external cause status; N18.9 Chronic kidney disease, unspecified; I35.0 Nonrheumatic aortic (valve) stenosis; R31.29 Other microscopic hematuria; D63.8 Anemia in other chronic diseases classified elsewhere; Z87.891 Personal history of nicotine dependence; K57.30 Diverticulosis of large intestine without perforation or abscess without bleeding; E86.0 Dehydration
CPT/HCPCS: 36415; 36430; 36511; 71020-TC; 73523-TC; 73560-TC-RT; 73700-TC-RT; 80048; 80053; 80076; 81003; 81015; 82272; 82607; 82728; 82746; 83540; 83550; 83735; 84100; 85025; 85027; 85610; 85730; 86850; 86900; 86901; 86922; 88304-TC; 88311-TC; 93005; 93010; 93306-TC; 94010; 94760; 97116-GP; 97161-GP; 99283-25; J1644; P9038; P9058

== ENCOUNTER 2016-10-30 10:34 | Inpatient (IN) | payer OTHER ==
--- NOTE | 2016-10-30 10:59 | PDOC ---
Attending Attestation - HPI HPI: 10/30/16 11:31 The patient is a 89 year old female, with a significant past medical history of HTN, Diverticulosis, GERD, R Femur fx who presents to the emergency department with L hip pain s/p fall yesterday morning. Patient states she was standing with her walker when she turned around and suddenly fell on her L side. Patient landed on her buttocks but was able to get up and walk to her bed. Patient denies any head trauma, LOC, extremity injuries, nausea or vomiting. She denies chest pain, headache or dizziness. She denies fever, chills, abdominal pain,diarrhea or constipation. She denies dysuria, frequency, urgency or hematuria. Allergies: Penicillins Past surgical history: Cholecystectomy, Bilateral Hip replacement, R shoulder replacement, R femur ORIF, total knee replacement. Social history: Former smoker PCP: None - Physicial Exam PE: 10/30/16 11:31 GENERAL: Awake, alert, and fully oriented, in no acute distress HEAD: No signs of trauma EYES: PERRLA, EOMI, sclera anicteric, conjunctiva clear ENT: Auricles normal inspection, hearing grossly normal, nares patent, oropharynx clear without exudates. Moist mucosa NECK: Normal ROM, supple, no lymphadenopathy, JVD, or masses LUNGS: Breath sounds equal, clear to auscultation bilaterally. No wheezes, and no crackles HEART: Regular rate and rhythm, normal S1 and S2, no murmurs, rubs or gallops ABDOMEN: Soft, nontender, normoactive bowel sounds. No guarding, no rebound. No masses EXTREMITIES: + L sided hip/groin tenderness. Normal range of motion, no edema. No clubbing or cyanosis. No cords, erythema. NEUROLOGICAL: Cranial nerves II through XII grossly intact. Normal speech, normal gait SKIN: Warm, Dry, normal turgor, no rashes or lesions noted. - Medical Decision Making L Hip/Pelvis XR Impression: Acute left superior and inferior pubic rami fractures. Reported By: Efren Calhoun MD Documentation prepared by Caitie Bahena, acting as medical policy specialist for Kanchan Conner MD <Caitie Bahena - Last Filed: 10/30/16 12:43> - Resident Resident Name: Hermilo Tobin - ED Attending Attestation I have performed the following: I have examined & evaluated the patient, The case was reviewed & discussed with the resident, I agree w/resident's findings & plan, Exceptions are as noted - Medical Decision Making Patient found to have pubic rami fractures, WBAT as per ortho. She has been unable to ambulate due to pain. Will admit to Dr. Chang. <Kanchan Conner - Last Filed: 10/30/16 12:46>
--- NOTE | 2016-10-30 11:01 | PDOC ---
History of Present Illness - History of Present Illness Initial Comments: 10/30/16 10:54 89 yo F with h/o HTN, right femur fracture who presents with left hip pain following fall. Pt. reports yesterday morning ( 10/29/16) she was standing and turned around with walker when she fell onto her left side and "buttocks" landing on carpeted area. states that she crawled to chair, and lifted her self to walker to ambulate. Now endorses pelvic pain in area of pubic symphysis and left "hip pain." She denies head, neck, back, shoulder trauma or pain. Denies SOB, chest pain, dizziness, lightheadedness, abdominal pain, dysuria, urinary or stool incontinence/retention, numbness/tingling, weakness. Recently undergone right femur surgery/sonia placement and total right knee replacement by Dr. Dexter whitaker following fall in 06/2016.Has been undergoing physical therapy. Not on anticoagulation. ASA [address] Urena. <Hermilo Tobin - Last Filed: 10/30/16 18:56> <Kanchan Conner - Last Filed: 10/31/16 07:35> - General Chief Complaint: Injury Stated Complaint: FALL Time Seen by Provider: 10/30/16 10:39 Past History - Past Medical History GI Disorders: Yes (DIVERTICULOSIS; GERD) HTN: Yes - Surgical History Cholecystectomy: Yes Orthopedic Surgery: Yes (JOSE M HIP REPLACEMENT; RIGHT SHLD REPLACEMENT) - Psycho/Social/Smoking Cessation Hx Anxiety: No Suicidal Ideation: No Smoking Status: Yes Smoking History: Former smoker Have you smoked in the past 12 months: Yes Number of Cigarettes Smoked Daily: 3 'Breaking Loose' booklet given: 04/04/13 Hx Alcohol Use: No Drug/Substance Use Hx: No <Hermilo Tobin - Last Filed: 10/30/16 18:56> <Kanchan Conner - Last Filed: 10/31/16 07:35> - Past Medical History Allergies/Adverse Reactions: Allergies Allergy/AdvReac Type Severity Reaction Status Date / Time Penicillins Allergy Rash Verified 10/30/16 11:08 Home Medications: Ambulatory Orders Hydralazine HCl 25 mg PO BID 05/25/13 Metoprolol Succinate [Toprol XL -] 50 mg PO DAILY 07/02/16 Aspirin Coated [Ecotrin -] 325 mg PO DAILY #30 tablet. 07/09/16 Furosemide [Lasix] 20 mg PO Q48H #1 tablet 07/09/16 Review of Systems - Review of Systems Comments:: 10/30/16 11:01 GENERAL/CONSTITUTIONAL: No fever or chills. No weakness. HEAD, EYES, EARS, NOSE AND THROAT: No change in vision. No ear pain or discharge. No sore throat.- CARDIOVASCULAR: No chest pain or shortness of breath RESPIRATORY: No cough, wheezing, or hemoptysis. GASTROINTESTINAL: No nausea, vomiting, diarrhea or constipation. GENITOURINARY: No dysuria, frequency, or change in urination. MUSCULOSKELETAL: + right hip pain. No joint or muscle swelling. No neck or back pain. SKIN: No rash NEUROLOGIC: No headache, vertigo, loss of consciousness, or change in strength/ sensation. ENDOCRINE: No increased thirst. No abnormal weight change HEMATOLOGIC/LYMPHATIC: No anemia, easy bleeding, or history of blood clots. ALLERGIC/IMMUNOLOGIC: No hives or skin allergy. <Hermilo Tobin - Last Filed: 10/30/16 18:56> *Physical Exam - Physical Exam Comments: 10/30/16 11:05 GENERAL: Awake, alert, and fully oriented, in no acute distress HEAD: No signs of trauma, normocephalic, atraumatic EYES: PERRLA, EOMI, sclera anicteric, conjunctiva clear NECK: Normal ROM, supple, no lymphadenopathy, JVD, or masses LUNGS: No distress, speaks full sentences, clear to auscultation bilaterally HEART: Regular rate and rhythm, normal S1 and S2, no murmurs, rubs or gallops, peripheral pulses normal and equal bilaterally. EXTREMITIES: 4/5 right lower extremity. 3/5 left side hip abduction. + Left greater trochanter ttp. Asbsent sacrococcygeal ttp. Absent bony deformity, normal inspection, Normal passive range of motion, no edema. No clubbing or cyanosis. Intact peripheral pulses. SKIN: Warm, Dry, normal turgor, no rashes or lesions noted. <Hermilo Tobin - Last Filed: 10/30/16 18:56> - Vital Signs Last Vital Signs Temp Pulse Resp BP Pulse Ox 99.0 F 68 16 103/57 96 10/31/16 06:00 10/31/16 06:00 10/31/16 06:00 10/31/16 06:00 10/30/16 20:06 <Kanchan Conner - Last Filed: 10/31/16 07:35> ED Treatment Course - LABORATORY CBC & Chemistry Diagram: 10/30/16 12:55 10/30/16 12:55 <Hermilo Tobin - Last Filed: 10/30/16 18:56> - LABORATORY CBC & Chemistry Diagram: 10/30/16 12:55 10/30/16 12:55 - Medications Given in the ED: ED Medications Discontinued Medications Generic Name Dose Route Start Last Admin Trade Name Rocio PRN Reason Stop Dose Admin Ibuprofen 600 mg 10/30/16 11:08 10/30/16 11:25 Motrin - PO 10/30/16 11:09 600 mg ONCE ONE Administration Morphine Sulfate 4 mg 10/30/16 13:30 10/30/16 13:21 Morphine Injection - IVPUSH 10/30/16 13:31 4 mg ONCE ONE Administration Ondansetron HCl 4 mg 10/30/16 13:17 10/30/16 13:21 Zofran Injection IVPUSH 10/30/16 13:18 4 mg ONCE ONE Administration <Kanchan Conner - Last Filed: 10/31/16 07:35> Medical Decision Making - Medical Decision Making 10/30/16 11:08 89 yo F with h/o HTN, right femur fracture who presents with left hip pain following fall. Pt. reports yesterday morning ( 10/29/16) falling on sacrum and left hip. Now endorses pelvic pain and left sided greater trochanter ttp. No evidence of neruovascular compromise. Hemodynamically stable. Recently undergone right femur surgery/sonia placement and total right knee replacement by Dr. Dexter whitaker following fall in 06/2016. Not on anticoagulation. DDx:left hip sprain/strain, femur fracture ED course: 10/30/16 11:14 Ibuprofen 600 mg PO X 1 10/30/16 11:14 RAD FEMUR LEFT/RIGHT HIP/PELVIS LEFT/RIGHT Right Femur:. Imaging reveals a right hip replacement which appears intact along with an intact knee replacement with absence of the distal femur which appears to have been surgically resected. There are vascular calcifications. There is no sign of loosening, acute fracture or dislocation. If symptoms persist, further imaging may be of help. 10/30/16 12:02 Left Pelvis: Impression: Acute left superior and inferior pubic rami fractures. 10/30/16 12:05 Left femur: Impression: Acute left superior and inferior pubic rami fractures. Intact left femur with postsurgical hardware. Foreign body in soft tissues just lateral to the lower screw. 10/30/16 12:13 Dr. Chang supervisor ski production for Dr. Urena 10/30/16 12:24 Per Phone call with Dr. Chang admit to inpatient med/surg. Consult Dr. Chavez Renteira (ortho) 10/30/16 12:34 Dr. Renteria advises weight bearing as tolerated and no preference for pt.admission. Up to pt. to admit for adequate analgesia. <Hermilo Tobin - Last Filed: 10/30/16 18:56> *DC/Admit/Observation/Transfer - Discharge Dispostion Admit: Yes Decision to Admit order Date/Time: 10/30/16 11:29 <Hermilo Tobin - Last Filed: 10/30/16 18:56> <Kanchan Conner - Last Filed: 10/31/16 07:35> Diagnosis at time of Disposition: pelvic fracture - Discharge Dispostion Condition at time of disposition: Stable - Referrals - Patient Instructions
[2016-10-30] MEDS ORDERED: IBUPROFEN 600 MG TABLET (FP) PO ONE ×2 (11:08→11:19)
[2016-10-30 13:03] LABS: BASOPHIL 0.7 % (0-2.0); EOSINOPHIL 0.6 % (0-4.5); MCH 22.8 pg (25.7-33.7); MCHC 31.6 g/dl (32.0-36.0); MEAN CELL VOLUME 72.3 fl (80-96); MEAN PLT VOLUME 8.3 fl (7.5-11.1); NEUTROPHILS 87.6 % (42.8-82.8); PLATELET COUNT 213 K/MM3 (134-434); RDW 14.2 % (11.6-15.6); WHITE BLOOD COUNT 12.6 K/mm3 (4.0-10.0)
[2016-10-30 13:16] LABS: URINE APPEARANCE CLEAR; URINE BILIRUBIN NEGATIVE (NEGATIVE); URINE BLOOD NEGATIVE (NEGATIVE); URINE COLOR STRAW; URINE GLUCOSE (UA) NEGATIVE (NEGATIVE); URINE KETONE NEGATIVE (NEGATIVE); URINE LEUK ESTERASE NEGATIVE (NEGATIVE); URINE NITRITE NEGATIVE (NEGATIVE); URINE PROTEIN NEGATIVE (NEGATIVE); URINE UROBILINOGEN NEGATIVE mg/dL (0.2-1.0)
[2016-10-30] MEDS ORDERED: ONDANSETRON 4 MG/2 ML VIAL IVPUSH ONE (13:17)
[2016-10-30 13:18] LABS: INR 1.12 (0.82-1.09); PROTHROMBIN TIME (PATIENT) 12.3 SEC (9.98-11.88)
[2016-10-30] MEDS ORDERED: ONDANSETRON 4 MG/2 ML VIAL ONE (13:24)
[2016-10-30] MEDS ORDERED: morphine CARPU-JECT 4 MG/1 ML DISP.SYRIN ONE (13:24)
[2016-10-30 13:28] LABS: ALBUMIN 3.6 g/dl (3.4-5.0); ALK PHOS 94 U/L (45-117); ANION GAP 11 (8-16); CALCIUM 8.7 mg/dL (8.5-10.1); CO2 23 mmol/L (21-32); CREATININE 1.7 mg/dL (0.55-1.02); GLUCOSE,RANDOM 105 mg/dL (74-106); SGOT/AST 14 U/L (15-37); SGPT/ALT 18 U/L (12-78); TOT PROT 6.5 g/dl (6.4-8.2)
[2016-10-30] MEDS ORDERED: morphine CARPU-JECT 4 MG/1 ML DISP.SYRIN IVPUSH ONE (13:30)
[2016-10-30 14:47] VITALS: BMI 24.2
--- NOTE | 2016-10-30 14:49 | PN ---
Progress Note (short form) - Note Progress Note: PULMONARY CONSULTATION DICTATED 10/30/16 IMP ACUTE LEFT SUPERIOR AND INFERIOR RAMI FXS CHF STABLE HTN CKD PLAN ANALGESICS ORTHO EVALUATION DVT PROPHYLAXIS NASAL O2 INCENT[address] SP[address] BEST Problem List - Problems (1) Wwmae-jj-slkxsze kidney injury Code(s): N17.9 - ACUTE KIDNEY FAILURE, UNSPECIFIED N18.9 - CHRONIC KIDNEY DISEASE, UNSPECIFIED (2) Aortic stenosis Code(s): I35.0 - NONRHEUMATIC AORTIC (VALVE) STENOSIS Qualifiers: (3) HTN (hypertension) Code(s): I10 - ESSENTIAL (PRIMARY) HYPERTENSION Qualifiers: (4) Pelvic fracture Code(s): S32.9XXA - FRACTURE OF UNSP PARTS OF LUMBOSACRAL SPINE AND PELVIS, INIT (5) CHF (congestive heart failure) Code(s): I50.9 - HEART FAILURE, UNSPECIFIED
[2016-10-30] MEDS ORDERED: morphine CARPU-JECT 2 MG/1 ML DISP.SYRIN IVPUSH PRN (16:33)
--- NOTE | 2016-10-30 16:45 | HP ---
CHIEF COMPLAINT: Mechanical fall PCP: Dr. Jason HISTORY OF PRESENT ILLNESS: This is an 89 year old female with PMHx of CKD, chronic diastolic CHF, right femur fracture, who presented to the ED s/p mechanical fall yesterday. The patient reports after she fell she had pain to her left hip. She then crawled on her hands and knees to her walker and was able to ambulate with her walker. She was also ambulate up 5 steps. Today, she reports her pain worsened and so she came to the ED. She denies any numbness, tingling, head trauma, syncope, near syncope, urinary symptoms, chest pain, chest palpitations, dizziness, fever , chills, abdominal pain ER course was notable for: (1) temp 98, pulse 82, BP 150/71, resp 16, O2 96% on RA (2) WBC 12.6 (3) Cr 1.7 (4) Acute left superior and inferior pubic rami fractures Recent Travel: denies PAST MEDICAL HISTORY: HTN, CHF PAST SURGICAL HISTORY: Right hip replacement 15 years ago Left hip pin 18 years ago Right complete shoulder replacement 5 years ago Cholecystectomy Hysterectomy and appendectomy age 44 Social History: Smoking: quit 4 years ago. 2 packs per week Alcohol: denies Drugs: denies Family History: Allergies Penicillins Allergy (Verified 10/30/16 11:08) Rash HOME MEDICATIONS: Home Medications Medication Instructions Recorded Hydralazine HCl 50 mg PO BID 05/25/13 Metoprolol Succinate [Toprol XL -] 25 mg PO DAILY 07/02/16 Aspirin Coated [Ecotrin -] 325 mg PO DAILY #30 tablet. 07/09/16 Furosemide [Lasix] 20 mg PO Q48H #1 tablet 07/09/16 REVIEW OF SYSTEMS CONSTITUTIONAL: Absent: fever, chills, diaphoresis, generalized weakness, malaise, loss of appetite, weight change HEENT: Absent: rhinorrhea, nasal congestion, ear pain, eye pain, visual changes CARDIOVASCULAR: Absent: chest pain, syncope, palpitations, irregular heart rate , lightheadedness, peripheral edema RESPIRATORY: Absent: cough, shortness of breath, dyspnea with exertion, orthopnea, wheezing, stridor, hemoptysis GASTROINTESTINAL:Absent: abdominal pain, abdominal distension, nausea, vomiting , diarrhea, constipation, melena, hematochezia GENITOURINARY: Absent: dysuria, frequency, urgency, hesitancy, hematuria, flank pain, genital pain MUSCULOSKELETAL: Left hip pain s/p mechanical fall yesterday. Absent: myalgia, joint swelling, back pain, neck pain SKIN: Absent: rash, itching, pallor HEMATOLOGIC/IMMUNOLOGIC: Absent: easy bleeding, easy bruising, lymphadenopathy, frequent infections ENDOCRINE:Absent: unexplained weight gain, unexplained weight loss, heat intolerance, cold intolerance NEUROLOGIC: Absent: headache, focal weakness or paresthesias, dizziness, seizure , mental status changes, bladder or bowel incontinence PSYCHIATRIC: Absent: anxiety, depression, suicidal or homicidal ideation, hallucinations. PHYSICAL EXAMINATION Vital Signs Period Temp Pulse Resp BP Sys/Ramírez Pulse Ox Last 24 Hr 97.7 F-98 F 76-82 16-20 134-150/67-71 88-100 GENERAL: Awake, alert, and fully oriented, in no acute distress. HEAD: Normal with no signs of trauma. EYES: Pupils equal, round and reactive to light. Sclera anicteric, conjunctiva clear. No lid lag. EARS, NOSE, THROAT: Ears normal, nares patent, oropharynx clear without exudates. Moist mucous membranes. NECK: Normal range of motion LUNGS: Breath sounds equal, clear to auscultation bilaterally. No wheezes, and no crackles. No accessory muscle use. HEART: Regular rate and rhythm, normal S1 and S2. 3/6 systolic murmur ABDOMEN: Soft, nontender, not distended, normoactive bowel sounds, no guarding, no rebound, no masses. No hepatomegaly or splenomegaly. MUSCULOSKELETAL: Decrease ROM to right knee, healing midline right knee incision. Left hip with decrease ROM UPPER EXTREMITIES: 2+ pulses, warm, well-perfused. No cyanosis. No clubbing. No peripheral edema. LOWER EXTREMITIES: 2+ pulses, warm, well-perfused. No calf tenderness. No peripheral edema. NEUROLOGICAL: Cranial nerves II-XII intact. Normal speech. Gait not observed PSYCHIATRIC: Cooperative. Good eye contact. Appropriate mood and affect. SKIN: Warm, dry, normal turgor, no rashes or lesions noted, normal capillary refill. CBCD WBC 12.6 K/mm3 (4.0-10.0) H 10/30/16 12:55 RBC 4.70 M/mm3 (3.60-5.2) D 10/30/16 12:55 Hgb 10.7 GM/dL (10.7-15.3) D 10/30/16 12:55 Hct 34.0 % (32.4-45.2) D 10/30/16 12:55 MCV 72.3 fl (80-96) L 10/30/16 12:55 MCHC 31.6 g/dl (32.0-36.0) L 10/30/16 12:55 RDW 14.2 % (11.6-15.6) D 10/30/16 12:55 Plt Count 213 K/MM3 (134-434) 10/30/16 12:55 MPV 8.3 fl (7.5-11.1) 10/30/16 12:55 CMP Sodium 141 mmol/L (136-145) 10/30/16 12:55 Potassium 4.0 mmol/L (3.5-5.1) 10/30/16 12:55 Chloride 107 mmol/L (98-107) 10/30/16 12:55 Carbon Dioxide 23 mmol/L (21-32) 10/30/16 12:55 Anion Gap 11 (8-16) 10/30/16 12:55 BUN 35 mg/dL (7-18) H 10/30/16 12:55 Creatinine 1.7 mg/dL (0.55-1.02) H 10/30/16 12:55 Creat Clearance w eGFR 28.30 (>60) 10/30/16 12:55 Random Glucose 105 mg/dL (74-106) 10/30/16 12:55 Calcium 8.7 mg/dL (8.5-10.1) 10/30/16 12:55 Total Bilirubin 1.0 mg/dL (0.2-1.0) 10/30/16 12:55 AST 14 U/L (15-37) L D 10/30/16 12:55 ALT 18 U/L (12-78) D 10/30/16 12:55 Alkaline Phosphatase 94 U/L (45-117) 10/30/16 12:55 Total Protein 6.5 g/dl (6.4-8.2) D 10/30/16 12:55 Albumin 3.6 g/dl (3.4-5.0) D 10/30/16 12:55 Assessment: This is an 89 year old female with PMHx of CKD, chronic diastolic CHF, right femur fracture, who presented to the ED s/p mechanical fall yesterday and was found to have an acute left superior and inferior pubic rami fracture Plan: 1) Ortho: Acute left superior and inferior pubic rami fracture - Pain management: Morphine, oxycodone, acetaminophen with parameters - PT evaluation - Will likely require SNF, will discuss with case management - F/u PT evaluation 2) Cardiology: Diastolic dysfunction with moderate to severe aortic stenosis - Continue Toprol XL 50mg po daily - Continue Hydralazine 25mg po bid - Continue Lasix 20mg po q2d - Follow-up outpatient cardiology 3) : CKD stage - Cr at baseline - Continue to monitor 4) F/E/N: - Monitor electrolytes - Sodium controlled diet 5) Prophylaxis: - Hold all chemical DVT prophylaxis until evaluation by ortho - PT evaluation tomorrow 6) Dispo: - Requires continued inpatient care CODE STATUS: FULL CODE Visit type - Emergency Visit Emergency Visit: Yes ED Registration Date: 10/30/16 Care time: The patient presented to the Emergency Department on the above date and was hospitalized for further evaluation of their emergent condition. - New Patient This patient is new to me today: Yes Date on this admission: 10/30/16 - Critical Care Critical Care patient: No
[2016-10-30] MEDS ORDERED: ACETAMINOPHEN 325 MG TABLET (FP) PO PRN (17:26)
[2016-10-30] MEDS: FUROSEMIDE 20 MG TABLET (FP) PO SCH (17:43)
[2016-10-30] MEDS: hydrALAZINE HCL 25 MG TABLET (FP) PO SCH (21:06)
[2016-10-30] MEDS ORDERED: hydrALAZINE HCL 25 MG TABLET (FP) PO SCH (22:00)
[2016-10-31 08:26] LABS: MCH 23.3 pg (25.7-33.7); MCHC 31.4 g/dl (32.0-36.0); MEAN PLT VOLUME 8.8 fl (7.5-11.1); PLATELET COUNT 174 K/MM3 (134-434); RDW 14.5 % (11.6-15.6); WHITE BLOOD COUNT 7.7 K/mm3 (4.0-10.0)
[2016-10-31 08:57] LABS: ANION GAP 11 (8-16); CALCIUM 8.2 mg/dL (8.5-10.1); CO2 25 mmol/L (21-32); CREATININE 1.9 mg/dL (0.55-1.02); GLUCOSE,RANDOM 86 mg/dL (74-106)
--- NOTE | 2016-10-31 09:48 | EKG ---
Test Reason : Blood Pressure : / mmHG Vent. Rate : 069 BPM Atrial Rate : 069 BPM P-R Int : 138 ms QRS Dur : 138 ms QT Int : 462 ms P-R-T Axes : 038 -17 141 degrees QTc Int : 495 ms NORMAL SINUS RHYTHM LEFT BUNDLE BRANCH BLOCK ABNORMAL ECG Confirmed by MD WILI, JANNA ([id number]) on 10/31/2016 9:48:43 AM Referred By: Confirmed By:JANNA RASHEED MD
[2016-10-31] MEDS ORDERED: METOPROLOL SUCCINATE 50 MG TAB.SR.24H (FP) PO SCH (10:00)
[2016-10-31] MEDS: METOPROLOL SUCCINATE 50 MG TAB.SR.24H (FP) PO SCH (10:32)
[2016-10-31] MEDS: hydrALAZINE HCL 25 MG TABLET (FP) PO SCH ×2 (10:32→21:25)
--- NOTE | 2016-10-31 10:34 | CONSULT ---
Consult - text type - Consultation Consultation Note: FULL CONSULT DICTATED IMP: LEFT SUP/INF PUBIC RAMUS FX PLAN: WBAT, PT, ANALGESICS, PLACEMENT
--- NOTE | 2016-10-31 11:03 | CONS ---
DATE OF CONSULTATION: 10/30/2016 PULMONARY CONSULTATION REFERRING PROVIDER: RODDY Veronica HISTORY OF PRESENT ILLNESS: The patient is an 89-year-old white female with past medical history of hypertension, CHF, diverticulosis, GERD, and history of right femoral fracture, admitted to [facility] with complaint of left hip pain, status post fall yesterday. The patient apparently was walking yesterday with a walker, which turned around suddenly and she fell on her left side. She states she landed on her buttocks. She was able to get up and walk to the bed. This morning she started developing some pain in the left groin. She presented to the emergency room with the above. In the ER, she had an x-ray performed, which revealed acute left superior and inferior pubic rami fractures. The patient denies any loss of consciousness. She denies any chest pain or palpitations. She denies any nausea, vomiting or diaphoresis. She has a history of smoking many years ago. She denies any COPD or asthma in the past. PAST MEDICAL HISTORY: Again includes CHF, hypertension, diverticulosis, GERD, history of right femoral fracture. REVIEW OF SYSTEMS: No orthopnea, no PND, no chest pain, no palpitations, no cough, no hemoptysis. PHYSICAL EXAMINATION: General: The patient is well-developed, elderly white female, awake, alert, in no acute distress. Vitals: She is currently afebrile. Blood pressure is 142/68. O2 saturation is 88% on room air. Respiratory rate is 20. HEENT: Normocephalic, atraumatic. Neck: Supple. Heart: Regular, with S1, S2. Lungs: There are a few bibasilar crackles. Abdomen: Soft. Bowel sounds are positive. Extremities: No cyanosis or edema. DIAGNOSTIC STUDIES: WBC 12.6, hemoglobin 10.7, hematocrit 34; platelet count 213,000. BUN 35, creatinine 1.7. Chest x-ray: Right shoulder replacement. Cardiomegaly, but no acute infiltrates or effusions. IMPRESSION: 1. Status post fall, with acute left superior and inferior pubic rami fractures. 2. History of congestive heart failure. 3. History of gastroesophageal reflux disease. 4. History of right shoulder replacement. 5. History of right open reduction and internal fixation. PLAN: Orthopedic consultation, analgesics, DVT prophylaxis, nasal oxygen, incentive spirometer. Anant [id number]
--- NOTE | 2016-10-31 11:24 | PN ---
Progress Note, Physician History of Present Illness: PULMONARY ALERT,NAD,-SOB. O2 SAT 97%ON RA - Current Medication List Current Medications: Active Medications Acetaminophen (Tylenol -) 650 mg PO Q4H PRN PRN Reason: FEVER OR PAIN Furosemide (Lasix -) 20 mg PO Q2D@1000 [facility] Last Admin: 10/30/16 17:43 Dose: 20 mg Hydralazine HCl (Apresoline -) 25 mg PO BID [facility] Last Admin: 10/31/16 10:32 Dose: 25 mg Metoprolol Succinate (Toprol Xl -) 50 mg PO DAILY [facility] Last Admin: 10/31/16 10:32 Dose: 50 mg Morphine Sulfate (Morphine Injection -) 2 mg IVPUSH Q4H PRN PRN Reason: PAIN LEVEL 6-10 Last Admin: 10/31/16 04:43 Dose: 2 mg Oxycodone HCl (Roxicodone -) 5 mg PO Q4H PRN PRN Reason: PAIN LEVEL 1-5 - Objective Vital Signs: Vital Signs Temperature 98.0 F 10/31/16 09:00 Pulse Rate 89 10/31/16 09:00 Respiratory Rate 18 10/31/16 09:00 Blood Pressure 105/52 10/31/16 09:00 O2 Sat by Pulse Oximetry (%) 96 10/31/16 09:00 Constitutional: Yes: Calm, Thin Eyes: Yes: WNL HENT: Yes: WNL Neck: Yes: WNL Cardiovascular: Yes: Regular Rate and Rhythm, S1, S2 Respiratory: Yes: CTA Bilaterally Gastrointestinal: Yes: Normal Bowel Sounds, Soft Extremities: Yes: WNL Edema: No Labs: CBC, BMP 10/31/16 06:00 10/31/16 06:00 INR, PTT INR 1.12 (0.82-1.09) 10/30/16 12:55 Problem List - Problems (1) Ntbbj-rf-yougucd kidney injury Code(s): N17.9 - ACUTE KIDNEY FAILURE, UNSPECIFIED N18.9 - CHRONIC KIDNEY DISEASE, UNSPECIFIED (2) Aortic stenosis Code(s): I35.0 - NONRHEUMATIC AORTIC (VALVE) STENOSIS Qualifiers: (3) HTN (hypertension) Code(s): I10 - ESSENTIAL (PRIMARY) HYPERTENSION Qualifiers: (4) Pelvic fracture Code(s): S32.9XXA - FRACTURE OF UNSP PARTS OF LUMBOSACRAL SPINE AND PELVIS, INIT (5) CHF (congestive heart failure) Code(s): I50.9 - HEART FAILURE, UNSPECIFIED Assessment/Plan IMP ACUTE LEFT SUPERIOR AND INFERIOR RAMI FXS CHF STABLE HTN CKD PLAN ANALGESICS DVT PROPHYLAXIS NASAL O2 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
[2016-10-31] MEDS: oxyCODONE HCL 5 MG TABLET PO PRN ×2 (11:49→21:25)
--- NOTE | 2016-10-31 14:48 | CONS ---
DATE OF CONSULTATION: 10/31/2016 The patient is an 89-year-old female well-known to mi status post left femoral neck fracture treated with cannulated screws, status post right total hip replacement, status post right distal femoral replacement total knee surgery for distal femur fracture, now with a new fall, injuring her left pelvic region. Negative LOC. No syncope. PHYSICAL EXAMINATION: She has equal limb lengths. She has some tenderness along the pubic rami. No pain with range of motion of her left hip, knee, ankle, and toes. Calf is soft, nontender. Otherwise, neurovascularly intact. No tenderness in the sacrum, ischium, SI joint around the ileum. X-rays show an acute left superoinferior pubic ramus fracture. The hip and all the metallic components that are in are seen to be in good place with no periprosthetic fractures. IMPRESSION: Left acute superior and inferior pubic rami fracture. PLAN: Out of bed, weightbearing as tolerated, analgesics, and discharge planning of either home with analgesics or to SNF. KENYON ALLEN M.D. [id number]
--- NOTE | 2016-10-31 15:05 | PN ---
Progress Note (short form) - Note Progress Note: Subjective: The patient was seen and examined at the bedside, she reports feeling better today. Seen by Dr. Renteria: weight bearing as tolerated Discussed with social work therapist, will need SNF placement PT evaluation today: Marched in place Current Medications Generic Name Dose Route Start Last Admin Trade Name Freq PRN Reason Stop Dose Admin Acetaminophen 650 mg 10/30/16 17:26 Tylenol - PO Q4H PRN FEVER OR PAIN Furosemide 20 mg 10/30/16 16:45 10/30/16 17:43 Lasix - PO 20 mg Q2D@1000 ODETTE Administration Hydralazine HCl 25 mg 10/30/16 22:00 10/31/16 10:32 Apresoline - PO 25 mg BID ODETTE Administration Metoprolol Succinate 50 mg 10/31/16 10:00 10/31/16 10:32 Toprol Xl - PO 50 mg DAILY ODETTE Administration Morphine Sulfate 2 mg 10/30/16 16:33 10/31/16 04:43 Morphine Injection - IVPUSH 2 mg Q4H PRN Administration PAIN LEVEL 6-10 Oxycodone HCl 5 mg 10/30/16 16:33 10/31/16 11:49 Roxicodone - PO 5 mg Q4H PRN Administration PAIN LEVEL 1-5 Objective: Vital Signs Period Temp Pulse Resp BP Sys/Ramírez Pulse Ox Last 24 Hr 98.0 F-99.0 F 65-89 16-20 100-128/52-64 92-96 Physical Exam: General: NAD, A&Ox3 Lungs: CTA bilaterally Heart: RRR, S1S2, 3/6 systolic murmur Abd: Soft, non-tender, non-distended. Normoactive bowel sounds MSK: Decrease ROM to right knee, healing midline right knee incision. Left hip with decrease ROM CBCD WBC 7.7 K/mm3 (4.0-10.0) D 10/31/16 06:00 RBC 4.53 M/mm3 (3.60-5.2) 10/31/16 06:00 Hgb 10.5 GM/dL (10.7-15.3) L 10/31/16 06:00 Hct 33.5 % (32.4-45.2) 10/31/16 06:00 MCV 74.0 fl (80-96) L 10/31/16 06:00 MCHC 31.4 g/dl (32.0-36.0) L 10/31/16 06:00 RDW 14.5 % (11.6-15.6) 10/31/16 06:00 Plt Count 174 K/MM3 (134-434) 10/31/16 06:00 MPV 8.8 fl (7.5-11.1) 10/31/16 06:00 CMP Sodium 140 mmol/L (136-145) 10/31/16 06:00 Potassium 4.0 mmol/L (3.5-5.1) 10/31/16 06:00 Chloride 104 mmol/L (98-107) 10/31/16 06:00 Carbon Dioxide 25 mmol/L (21-32) 10/31/16 06:00 Anion Gap 11 (8-16) 10/31/16 06:00 BUN 38 mg/dL (7-18) H 10/31/16 06:00 Creatinine 1.9 mg/dL (0.55-1.02) H 10/31/16 06:00 Creat Clearance w eGFR 28.30 (>60) 10/30/16 12:55 Random Glucose 86 mg/dL (74-106) 10/31/16 06:00 Calcium 8.2 mg/dL (8.5-10.1) L 10/31/16 06:00 Total Bilirubin 1.0 mg/dL (0.2-1.0) 10/30/16 12:55 AST 14 U/L (15-37) L D 10/30/16 12:55 ALT 18 U/L (12-78) D 10/30/16 12:55 Alkaline Phosphatase 94 U/L (45-117) 10/30/16 12:55 Total Protein 6.5 g/dl (6.4-8.2) D 10/30/16 12:55 Albumin 3.6 g/dl (3.4-5.0) D 10/30/16 12:55 Assessment: This is an 89 year old female with PMHx of CKD, chronic diastolic CHF, right femur fracture, who presented to the ED s/p mechanical fall yesterday and was found to have an acute left superior and inferior pubic rami fracture Plan: 1) Ortho: Acute left superior and inferior pubic rami fracture - Pain management: Morphine, oxycodone, acetaminophen with parameters - PT evaluation: marched in place - Will require SNF, will discuss with social work therapist - Appreciate ortho consult 2) Cardiology: Diastolic 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
[2016-11-01 08:22] LABS: ANION GAP 9 (8-16); CALCIUM 7.8 mg/dL (8.5-10.1); CO2 25 mmol/L (21-32); CREATININE 1.7 mg/dL (0.55-1.02); GLUCOSE,RANDOM 95 mg/dL (74-106)
--- NOTE | 2016-11-01 09:20 | PN ---
Progress Note (short form) - Note Progress Note: Ortho Pt seen and examined s/p left sup and inf pubic rami fx + ttp, decr rom, nvi a/p PT wbat dvt ppx pain control d/c planning
[2016-11-01] MEDS: hydrALAZINE HCL 25 MG TABLET (FP) PO SCH (09:29)
[2016-11-01] MEDS: METOPROLOL SUCCINATE 50 MG TAB.SR.24H (FP) PO SCH (09:29)
[2016-11-01] MEDS: FUROSEMIDE 20 MG TABLET (FP) PO SCH (09:30)
[2016-11-01] MEDS: oxyCODONE HCL 5 MG TABLET PO PRN ×2 (09:30→14:57)
--- NOTE | 2016-11-01 13:49 | DS ---
Physical Exam: SUBJECTIVE: Patient seen and examined OBJECTIVE: Vital Signs Period Temp Pulse Resp BP Sys/Ramírez Pulse Ox Last 24 Hr 98.0 F-99.2 F 72-77 16-20 100-147/52-87 97 PHYSICAL EXAM GENERAL: The patient is awake, alert, and fully oriented, in no acute distress. HEAD: Normal with no signs of trauma. EYES: PERRL, extraocular movements intact, sclera anicteric, conjunctiva clear. ENT: Ears normal, nares patent, oropharynx clear without exudates, moist mucous membranes. NECK: Trachea midline, full range of motion, supple. LUNGS: Breath sounds equal, clear to auscultation bilaterally, no wheezes, no crackles, no accessory muscle use. HEART: Regular rate and rhythm, S1, S2 without murmur, rub or gallop. ABDOMEN: Soft, nontender, nondistended, normoactive bowel sounds, no guarding, no rebound, no hepatosplenomegaly, no masses. EXTREMITIES: 2+ pulses, warm, well-perfused, no edema. NEUROLOGICAL: Cranial nerves II through XII grossly intact. Normal speech, gait not observed. PSYCH: Normal mood, normal affect. SKIN: Warm, dry, normal turgor, no rashes or lesions noted. LABS Laboratory Results - last 24 hr 11/01/16 07:05 Sodium 139 Potassium 4.1 Chloride 105 Carbon Dioxide 25 Anion Gap 9 BUN 34 H Creatinine 1.7 H Random Glucose 95 Calcium 7.8 L HOSPITAL COURSE: Date of Admission:10/30/16 Date of Discharge: 11/01/16 Pre hospital course This is an 89 year old female with PMHx of CKD, chronic diastolic CHF, right femur fracture, who presented to the ED s/p mechanical fall yesterday. The patient reports after she fell she had pain to her left hip. She then crawled on her hands and knees to her walker and was able to ambulate with her walker. She was also ambulate up 5 steps. Today, she reports her pain worsened and so she came to the ED. She denies any numbness, tingling, head trauma, syncope, near syncope, urinary symptoms, chest pain, chest palpitations, dizziness, fever , chills, abdominal pain ER course (1) temp 98, pulse 82, BP 150/71, resp 16, O2 96% on RA (2) WBC 12.6 (3) Cr 1.7 (4) Acute left superior and inferior pubic rami fractures Subsequent hospital course Patient was seen and evaluated by ortho. No surgical intervention indicated. Needs physical therapy, weight bearing therapy, and pain management. Patient was continued on her home medications. Minutes to complete discharge: 35 Discharge Summary Reason For Visit: FRACTURE OF PUBIC RAMUS Current Active Problems CHF (congestive heart failure) (Acute) Pelvic fracture (Acute) Condition: Improved - Instructions Referrals: Augustus Jason MD [Primary Care Provider] - Chavez Renteria MD [Staff Physician] - 2 Weeks [facility]position: [facility] - Home Medications Comprehensive Discharge Medication List: Ambulatory Orders Hydralazine HCl 25 mg PO BID 05/25/13 Metoprolol Succinate [Toprol XL -] 50 mg PO DAILY 07/02/16 Aspirin Coated [Ecotrin -] 325 mg PO DAILY #30 tablet. 07/09/16 Furosemide [Lasix] 20 mg PO Q48H #1 tablet 07/09/16 This patient is new to me today: Yes Date on this admission: 11/01/16 Emergency Visit: Yes ED Registration Date: 10/30/16 Care time: The patient presented to the Emergency Department on the above date and was hospitalized for further evaluation of their emergent condition. Critical Care patient: No - Discharge Referral Referred to [facility] Med P.C.: No
--- NOTE | 2016-11-01 14:29 | PN ---
Progress Note, Physician History of Present Illness: PULMONARY ALERT,NAD,-CP,-SOB.O2 SAAT 96% ON RA - Current Medication List Current Medications: Active Medications Acetaminophen (Tylenol -) 650 mg PO Q4H PRN PRN Reason: FEVER OR PAIN Furosemide (Lasix -) 20 mg PO Q2D@1000 ODETTE Last Admin: 11/01/16 09:30 Dose: 20 mg Hydralazine HCl (Apresoline -) 25 mg PO BID [facility] Last Admin: 11/01/16 09:29 Dose: 25 mg Metoprolol Succinate (Toprol Xl -) 50 mg PO DAILY [facility] Last Admin: 11/01/16 09:29 Dose: 50 mg Morphine Sulfate (Morphine Injection -) 2 mg IVPUSH Q4H PRN PRN Reason: PAIN LEVEL 6-10 Last Admin: 10/31/16 04:43 Dose: 2 mg Oxycodone HCl (Roxicodone -) 5 mg PO Q4H PRN PRN Reason: PAIN LEVEL 1-5 Last Admin: 11/01/16 09:30 Dose: 5 mg - Objective Vital Signs: Vital Signs Temperature 98.0 F 11/01/16 08:00 Pulse Rate 73 11/01/16 08:00 Respiratory Rate 20 11/01/16 08:00 Blood Pressure 147/87 11/01/16 08:00 O2 Sat by Pulse Oximetry (%) 97 11/01/16 08:00 Constitutional: Yes: Well Nourished, Calm Eyes: Yes: WNL HENT: Yes: WNL Neck: Yes: WNL Cardiovascular: Yes: Regular Rate and Rhythm, S1, S2 Respiratory: Yes: Rales (FEW BIBASILAR RALES) Gastrointestinal: Yes: Normal Bowel Sounds, Soft Extremities: Yes: WNL Edema: No Labs: CBC, BMP 11/01/16 07:05 INR, PTT INR 1.12 (0.82-1.09) 10/30/16 12:55 Problem List - Problems (1) [id number] kidney injury Code(s): N17.9 - ACUTE KIDNEY FAILURE, UNSPECIFIED N18.9 - CHRONIC KIDNEY DISEASE, UNSPECIFIED (2) Aortic stenosis Code(s): I35.0 - NONRHEUMATIC AORTIC (VALVE) STENOSIS Qualifiers: (3) HTN (hypertension) Code(s): I10 - ESSENTIAL (PRIMARY) HYPERTENSION Qualifiers: (4) Pelvic fracture Code(s): S32.9XXA - FRACTURE OF UNSP PARTS OF LUMBOSACRAL SPINE AND PELVIS, INIT (5) CHF (congestive heart failure) Code(s): I50.9 - HEART FAILURE, UNSPECIFIED Assessment/Plan IMP ACUTE LEFT SUPERIOR AND INFERIOR RAMI FXS CHF STABLE HTN CKD PLAN ANALGESICS DVT PROPHYLAXIS NASAL O2 INCENTIVE SPIROMETER PT DR BEST Problem List - Problems (1) Psgoa-jn-ssjmwjm kidney injury Code(s): N17.9 - ACUTE KIDNEY FAILURE, UNSPECIFIED N18.9 - CHRONIC KIDNEY DISEASE, UNSPECIFIED (2) Aortic stenosis Code(s): I35.0 - NONRHEUMATIC AORTIC (VALVE) STENOSIS Qualifiers: (3) HTN (hypertension) Code(s): I10 - ESSENTIAL (PRIMARY) HYPERTENSION Qualifiers: (4) Pelvic fracture Code(s): S32.9XXA - FRACTURE OF UNSP PARTS OF LUMBOSACRAL SPINE AND PELVIS, INIT (5) CHF (congestive heart failure) Code(s): I50.9 - HEART FAILURE, UNSPECIFIED
[2016-11-01 15:44] VITALS: BP 145/80; PULSE 69; TEMP 97.8
== END 2016-11-01 16:09 | DRG 536 ==
LOC: JER 10:34 → JERBED 12:18 → J6S 14:07
PROVIDERS: ADMIT Internal Medicine; ATTEND Nurse Practitioner Acute Care
DX: S32.512A Fracture of superior rim of left pubis, initial encounter for closed fracture (principal); I13.0 Hypertensive heart and chronic kidney disease with heart failure and stage 1 through stage 4 chronic kidney disease, or unspecified chronic kidney disease; I50.32 Chronic diastolic (congestive) heart failure; K57.90 Diverticulosis of intestine, part unspecified, without perforation or abscess without bleeding; K21.9 Gastro-esophageal reflux disease without esophagitis; I35.0 Nonrheumatic aortic (valve) stenosis; W18.39XA Other fall on same level, initial encounter; Y92.098 Other place in other non-institutional residence as the place of occurrence of the external cause; N18.9 Chronic kidney disease, unspecified; Z96.643 Presence of artificial hip joint, bilateral; Z96.611 Presence of right artificial shoulder joint; Z87.891 Personal history of nicotine dependence; Z88.0 Allergy status to penicillin
CPT/HCPCS: 36415; 71010-TC; 73523-TC; 73552-TC-LT; 73552-TC-RT; 80048; 80053; 81003; 85025; 85027; 85610; 86850; 86900; 86901; 93005; 93010; 94010; 97116-GP; 97161-GP; 99283-25